=== PATIENT | female | born 1940 | race Caucasian/White ===

== ENCOUNTER → 2017-10-11 10:49 | Outpatient (CLI) | payer MEDICARE, SELFPAY ==
[2017-10-11 12:39] LABS: Absolute Lymphocyte Count 3.65 X10^3/ul (0.83-4.51); Absolute Neutrophil Count 7.2 X10^3/uL (2.0-7.7); Basophil# 0.06 X10^3/uL; Basophil% 0.5 % (0-1); Eosinophil# 0.57 X10^3/uL; Eosinophils% 4.6 % (0-5); Hematocrit 40.1 % (37-47); Hemoglobin 12.8 g/dl (12.0-15.0); Lymphocyte # 3.65 X10^3/ul (4.0); Lymphocyte % 29.2 % (19-41); Mean Corp Hgb Conc 31.9 g/gl (32-36); Mean Corpuscular Hgb 29.1 pg (27.0-32.0); Mean Corpuscular Volume 91.1 fL (81-99); Mean Platelet Vol. 10.7 fl (6.2-12.0); Monocyte# 0.93 X10^3/uL; Monocyte% 7.5 % (0-10); Neutrophil % 57.6 % (47-70); Platelet Count 332 K/mm3 (150-450); RBC Distribution Width CV 15.3 % (11.6-14.6); RBC Distribution Width SD 49.9 fl (35.1-43.9); White Blood Count 12.5 K/mm3 (4.4-11.0)
[2017-10-11 12:40] LABS: POSITIVE COUNT NO; POSITIVE DIFFERENTIAL NO; POSITIVE MORPHOLOGY NO
[2017-10-11 12:58] LABS: Anion Gap 8 (5-15); BUN 29 mg/dL (7-18); Calcium,Total 9.6 mg/dL (8.5-10.1); Chloride 104 mmol/L (98-107); Creatinine, Serum 2.23 mg/dL (0.55-1.02); EST Glomerular Filtration Rate 23 mL/min (>60); Est Glom Filt Rate - Afr Amer 27 mL/min (>60); Glucose 98 mg/dL (74-106); Potassium 4.9 mmol/L (3.5-5.1); Sodium Level 139 mmol/L (136-145)
[2017-10-11 13:01] LABS: Vitamin D,25 Hydroxy 25.6 ng/mL (19.95-100.01)
== END ==
PROVIDERS: Family Provider Family Medicine; PCP Family Medicine; Visit Provider Family Medicine
DX: I12.9 Hypertensive chronic kidney disease with stage 1 through stage 4 chronic kidney disease, or unspecified chronic kidney disease (principal); N18.9 Chronic kidney disease, unspecified; E55.9 Vitamin D deficiency, unspecified
CPT/HCPCS: 36415; 80048; 82306; 85025

== ENCOUNTER → 2018-02-23 09:53 | Outpatient (CLI) | payer MEDICARE, SELFPAY ==
[2018-02-23 12:18] LABS: Absolute Lymphocyte Count 4.41 X10^3/ul (0.83-4.51); Basophil# 0.05 X10^3/uL; Basophil% 0.4 % (0-1); Hematocrit 39.9 % (37-47); Hemoglobin 12.7 g/dl (12.0-15.0); Lymphocyte # 4.41 X10^3/ul (4.0); Lymphocyte % 31.2 % (19-41); Mean Corp Hgb Conc 31.8 g/gl (32-36); Mean Corpuscular Hgb 28.9 pg (27.0-32.0); Mean Corpuscular Volume 90.9 fL (81-99); Mean Platelet Vol. 11.1 fl (6.2-12.0); Monocyte# 0.91 X10^3/uL; Monocyte% 6.4 % (0-10); Neutrophil # 7.98 X10^3/uL (2.7-7.7); Neutrophil % 56.5 % (47-70); Platelet Count 368 K/mm3 (150-450); RBC Distribution Width CV 15.2 % (11.6-14.6); RBC Distribution Width SD 49.8 fl (35.1-43.9); Red Blood Count 4.39 M/mm3 (4.2-5.4); White Blood Count 14.1 K/mm3 (4.4-11.0)
[2018-02-23 12:24] LABS: POSITIVE COUNT NO; POSITIVE DIFFERENTIAL NO; POSITIVE MORPHOLOGY NO
[2018-02-23 12:29] LABS: ALB/GLOB Ratio 0.9 RATIO (0.9-2.4); AST(SGOT) 12 U/L (15-37); Alanine Aminotransfer ALT/SGPT 17 U/L (13-56); Albumin, Serum 3.5 g/dL (3.2-5.0); Alkaline Phosphatase 92 U/L (45-117); Anion Gap 10 (5-15); BUN 32 mg/dL (7-18); BUN/Creat Ratio 12.4 RATIO (10-20); Calcium,Total 9.2 mg/dL (8.5-10.1); Chloride 104 mmol/L (98-107); Cholesterol 290 mg/dL (200); Creatinine, Serum 2.59 mg/dL (0.55-1.02); EST Glomerular Filtration Rate 19 mL/min (>60); Est Glom Filt Rate - Afr Amer 23 mL/min (>60); Glucose 100 mg/dL (74-106); High Density Lipoprotein 40 mg/dL; Potassium 4.4 mmol/L (3.5-5.1); Protein, Total 7.5 g/dL (6.4-8.2); Sodium Level 140 mmol/L (136-145); Triglycerides 230 mg/dL; Uric Acid 7.8 mg/dL (2.6-6.0); Very Low Density Lipoprotein 46 mg/dL (5-40)
[2018-02-23 12:39] LABS: Vitamin D,25 Hydroxy 24.6 ng/mL (29.95-100.01)
== END ==
PROVIDERS: Family Provider Family Medicine; PCP Family Medicine; Visit Provider Family Medicine
DX: E55.9 Vitamin D deficiency, unspecified (principal); I12.9 Hypertensive chronic kidney disease with stage 1 through stage 4 chronic kidney disease, or unspecified chronic kidney disease; N18.9 Chronic kidney disease, unspecified
CPT/HCPCS: 36415; 80053; 80061; 82306; 84550; 85025

== ENCOUNTER → 2018-04-25 10:03 | Outpatient (CLI) | payer MEDICARE, SELFPAY ==
[2018-04-25 13:12] LABS: Vitamin D,25 Hydroxy 47.4 ng/mL (29.95-100.01)
[2018-04-25 13:20] LABS: ALB/GLOB Ratio 0.9 RATIO (0.9-2.4); AST(SGOT) 11 U/L (15-37); Alanine Aminotransfer ALT/SGPT 19 U/L (13-56); Albumin, Serum 3.6 g/dL (3.2-5.0); Alkaline Phosphatase 93 U/L (45-117); Anion Gap 9 (5-15); BUN 24 mg/dL (7-18); BUN/Creat Ratio 10.3 RATIO (10-20); Calcium,Total 9.8 mg/dL (8.5-10.1); Chloride 102 mmol/L (98-107); Creatinine, Serum 2.32 mg/dL (0.55-1.02); EST Glomerular Filtration Rate 22 mL/min (>60); Est Glom Filt Rate - Afr Amer 26 mL/min (>60); Globulin 4.1 g/dL (2.2-4.2); Glucose 99 mg/dL (74-106); Potassium 4.4 mmol/L (3.5-5.1); Protein, Total 7.7 g/dL (6.4-8.2); Sodium Level 138 mmol/L (136-145); T4 Free Direct 0.93 ng/dL (0.76-1.46); Thyroid Stim Hormone (TSH) 8.99 uIU/mL (0.358-3.74); Uric Acid 4.7 mg/dL (2.6-6.0)
[2018-04-25 13:31] LABS: Absolute Lymphocyte Count 2.44 X10^3/ul (0.83-4.51); Absolute Neutrophil Count 8.2 X10^3/uL (2.0-7.7); Basophil# 0.06 X10^3/uL; Basophil% 0.5 % (0-1); Eosinophil# 0.34 X10^3/uL; Eosinophils% 2.9 % (0-5); Hematocrit 42.2 % (37-47); Hemoglobin 12.7 g/dl (12.0-15.0); Lymphocyte # 2.44 X10^3/ul (4.0); Lymphocyte % 20.7 % (19-41); Mean Corp Hgb Conc 30.1 g/gl (32-36); Mean Corpuscular Hgb 27.9 pg (27.0-32.0); Mean Corpuscular Volume 92.7 fL (81-99); Mean Platelet Vol. 11.4 fl (6.2-12.0); Monocyte# 0.71 X10^3/uL; Neutrophil # 8.17 X10^3/uL (2.7-7.7); Neutrophil % 69.6 % (47-70); Platelet Count 362 K/mm3 (150-450); RBC Distribution Width CV 15.6 % (11.6-14.6); RBC Distribution Width SD 51.9 fl (35.1-43.9); Red Blood Count 4.55 M/mm3 (4.2-5.4); White Blood Count 11.8 K/mm3 (4.4-11.0)
[2018-04-25 13:39] LABS: POSITIVE COUNT NO; POSITIVE DIFFERENTIAL NO; POSITIVE MORPHOLOGY NO
== END ==
PROVIDERS: Family Provider Family Medicine; PCP Family Medicine; Visit Provider Family Medicine
DX: N18.9 Chronic kidney disease, unspecified (principal); E55.9 Vitamin D deficiency, unspecified; M10.9 Gout, unspecified; E78.2 Mixed hyperlipidemia
CPT/HCPCS: 36415; 80053; 82306; 84439; 84443; 84550; 85025

== ENCOUNTER → 2018-08-28 14:10 | Outpatient (CLI) | payer MEDICARE, SELFPAY ==
[2018-08-28 14:23] LABS: Mucous, Urine 0 SEEN /hpf (<or=2+); Red Blood Cells-Urine 0 SEEN /hpf (0-5)
[2018-08-28 15:31] LABS: Color, Urine Yellow (Yellow); Glucose, Dipstick Normal (Normal); Ketone-Dipstick Negative (Negative); Leukocyte Esterase-Dipstick 25 /ul (Negative); Nitrite-Dipstick Negative (Negative); Occult Blood-Urine Negative /ul (Negative); Protein-Dipstick 500 mg/dl (Negative); Specific Gravity, Urine 1.015 (1.002-1.030); Urine Bilirubin Dipstick Negative (Negative); Urine Clarity Clear (Clear); Urine Urobilinogen Normal (Normal)
[2018-08-28 15:33] LABS: Hematocrit 40.5 % (37-47); Hemoglobin 12.5 g/dl (12.0-15.0); Mean Corp Hgb Conc 30.9 g/gl (32-36); Mean Corpuscular Hgb 28.7 pg (27.0-32.0); Mean Corpuscular Volume 93.1 fL (81-99); Mean Platelet Vol. 11.8 fl (6.2-12.0); Platelet Count 355 K/mm3 (150-450); RBC Distribution Width CV 15.3 % (11.6-14.6); Red Blood Count 4.35 M/mm3 (4.2-5.4); White Blood Count 11.5 K/mm3 (4.4-11.0)
[2018-08-28 15:44] LABS: Scan Indicated on CBC? Y/N NO
[2018-08-28 16:18] LABS: Bacteria 1+ /hpf (None Seen); Squamous Epithelial Cells - UA 5-10 SEEN /hpf (5-10); White Blood Cells 0-5 SEEN /hpf (0-5)
[2018-08-28 16:19] LABS: Albumin, Serum 3.8 g/dL (3.2-5.0); BUN 24 mg/dL (7-18); Calcium,Total 9.7 mg/dL (8.5-10.1); Chloride 103 mmol/L (98-107); Creatinine, Serum 2.18 mg/dL (0.55-1.02); EST Glomerular Filtration Rate 23 mL/min (>60); Est Glom Filt Rate - Afr Amer 28 mL/min (>60); Glucose 94 mg/dL (74-106); Phosphorus 2.7 mg/dL (2.5-4.9); Sodium Level 138 mmol/L (136-145)
[2018-08-28 16:28] LABS: PTHIN 80.2 pg/mL (18.4-80.1); Vitamin D,25 Hydroxy 58.6 ng/mL (29.95-100.01)
[2018-08-28 16:29] LABS: Microalbumin:Creatinine Ratio 1239.8 mg/g CRE (<30 mg/g CRE); Protein, Urine (Random) 224.8 mg/dL (<11.9); Protein:Creat Ratio 1315 mg/g CRE (0-200)
== END ==
PROVIDERS: Family Provider Family Medicine; PCP Family Medicine; Visit Provider Internal Medicine Nephrology
DX: N18.4 Chronic kidney disease, stage 4 (severe) (principal); E55.9 Vitamin D deficiency, unspecified
CPT/HCPCS: 36415; 80069; 81001; 82043; 82306; 82570; 83970; 84156; 85027

== ENCOUNTER → 2019-07-23 10:22 | Outpatient (CLI) | payer MEDICARE, SELFPAY ==
[2019-07-23 12:21] LABS: Absolute Lymphocyte Count 2.88 X10^3/uL (0.83-4.51); Absolute Neutrophil Count 10.8 X10^3/uL (2.0-7.7); Basophil# 0.05 X10^3/uL; Basophil% 0.3 % (0-1); Eosinophil# 0.39 X10^3/uL; Eosinophils% 2.5 % (0-5); Hematocrit 38.3 % (37-47); Hemoglobin 11.7 g/dL (12.0-15.0); Lymphocyte # 2.88 X10^3/ul (4.0); Lymphocyte % 18.5 % (19-41); Mean Corp Hgb Conc 30.5 g/dL (32-36); Mean Corpuscular Hgb 29.3 pg (27.0-32.0); Mean Corpuscular Volume 95.8 fL (81-99); NRBC Flagged by Analyzer 0 % (0-5); Neutrophil # 10.76 X10^3/uL (2.7-7.7); Platelet Count 318 K/mm3 (150-450); RBC Distribution Width CV 15.7 % (11.6-14.6); RBC Distribution Width SD 55.4 fl (35.1-43.9); White Blood Count 15.6 K/mm3 (4.4-11.0)
[2019-07-23 13:08] LABS: ALB/GLOB Ratio 0.9 RATIO (0.9-2.4); AST(SGOT) 9 U/L (15-37); Alanine Aminotransfer ALT/SGPT 18 U/L (13-56); Albumin, Serum 3.3 g/dL (3.2-5.0); Alkaline Phosphatase 90 U/L (45-117); Anion Gap 8 (5-15); BUN 33 mg/dL (7-18); BUN/Creat Ratio 13.6 RATIO (10-20); Calcium,Total 9.9 mg/dL (8.5-10.1); Chloride 104 mmol/L (98-107); Creatinine, Serum 2.43 mg/dL (0.55-1.02); EST Glomerular Filtration Rate 20 mL/min (>60); Est Glom Filt Rate - Afr Amer 25 mL/min (>60); Globulin 3.8 g/dL (2.2-4.2); Glucose 99 mg/dL (74-106); Potassium 4.1 mmol/L (3.5-5.1); Protein, Total 7.1 g/dL (6.4-8.2); Sodium Level 138 mmol/L (136-145); T4 Free Direct 1.07 ng/dL (0.76-1.46); Thyroid Stim Hormone (TSH) 6.19 uIU/mL (0.358-3.74); Uric Acid 5.4 mg/dL (2.6-6.0)
[2019-07-23 13:14] LABS: Microalbumin:Creatinine Ratio 1446.9 mg/g CRE (<30 mg/g CRE)
[2019-07-23 14:49] LABS: Vitamin D,25 Hydroxy 75.2 ng/mL (29.95-100.01)
== END ==
PROVIDERS: Family Provider Family Medicine; PCP Family Medicine; Visit Provider Family Medicine
DX: I10 Essential (primary) hypertension (principal); E03.9 Hypothyroidism, unspecified; E55.9 Vitamin D deficiency, unspecified; M10.9 Gout, unspecified; D72.829 Elevated white blood cell count, unspecified
CPT/HCPCS: 36415; 80053; 82043; 82306; 82570; 84439; 84443; 84550; 85025

== ENCOUNTER → 2019-08-01 11:40 | Outpatient (CLI) | payer MEDICARE, SELFPAY ==
[2019-08-01 16:00] LABS: Anion Gap 7 (5-15); BUN 19 mg/dL (7-18); BUN/Creat Ratio 8.3 RATIO (10-20); Calcium,Total 9.7 mg/dL (8.5-10.1); Chloride 102 mmol/L (98-107); Creatinine, Serum 2.29 mg/dL (0.55-1.02); EST Glomerular Filtration Rate 22 mL/min (>60); Est Glom Filt Rate - Afr Amer 26 mL/min (>60); Glucose 100 mg/dL (74-106); Potassium 4.2 mmol/L (3.5-5.1); Sodium Level 137 mmol/L (136-145)
== END ==
LOC: LAB.FUTURE 11:41 → BFHLAB 08-02 14:02
PROVIDERS: Family Provider Family Medicine; PCP Family Medicine; Visit Provider Family Medicine
DX: I10 Essential (primary) hypertension (principal)
CPT/HCPCS: 36415; 80048

== ENCOUNTER → 2020-02-28 08:55 | Outpatient (CLI) | payer MEDICARE, SELFPAY ==
[2020-02-28 12:59] LABS: Absolute Lymphocyte Count 3.65 X10^3/uL (0.83-4.51); Absolute Neutrophil Count 8.6 X10^3/uL (2.0-7.7); Basophil# 0.08 X10^3/uL; Basophil% 0.6 % (0-1); Eosinophil# 0.69 X10^3/uL; Eosinophils% 4.9 % (0-5); Hematocrit 39.6 % (37-47); Lymphocyte # 3.65 X10^3/ul (4.0); Lymphocyte % 25.8 % (19-41); Mean Corp Hgb Conc 30.3 g/dL (32-36); Mean Corpuscular Hgb 28.9 pg (27.0-32.0); Mean Corpuscular Volume 95.4 fL (81-99); Mean Platelet Vol. 11.6 fl (6.2-12.0); Monocyte# 1.01 X10^3/uL; Monocyte% 7.1 % (0-10); NRBC Flagged by Analyzer 0 % (0-5); Neutrophil # 8.62 X10^3/uL (2.7-7.7); Platelet Count 385 K/mm3 (150-450); RBC Distribution Width CV 14.6 % (11.6-14.6); RBC Distribution Width SD 51.2 fl (35.1-43.9); Red Blood Count 4.15 M/mm3 (4.2-5.4); White Blood Count 14.1 K/mm3 (4.4-11.0)
[2020-02-28 13:03] LABS: Vitamin D,25 Hydroxy 64.7 ng/mL
[2020-02-28 13:04] LABS: ALB/GLOB Ratio 0.9 RATIO (0.9-2.4); AST(SGOT) 10 U/L (15-37); Alanine Aminotransfer ALT/SGPT 19 U/L (13-56); Albumin, Serum 3.5 g/dL (3.2-5.0); Alkaline Phosphatase 94 U/L (45-117); Anion Gap 6 (5-15); BUN 25 mg/dL (7-18); BUN/Creat Ratio 10.5 RATIO (10-20); Calcium,Total 9.8 mg/dL (8.5-10.1); Chloride 106 mmol/L (98-107); Creatinine, Serum 2.37 mg/dL (0.55-1.02); EST Glomerular Filtration Rate 21 mL/min (>60); Est Glom Filt Rate - Afr Amer 25 mL/min (>60); Globulin 3.8 g/dL (2.2-4.2); Glucose 95 mg/dL (74-106); Potassium 4.5 mmol/L (3.5-5.1); Protein, Total 7.3 g/dL (6.4-8.2); Sodium Level 140 mmol/L (136-145); Thyroid Stim Hormone (TSH) 6.15 uIU/mL (0.358-3.74)
== END ==
PROVIDERS: Family Provider Family Medicine; PCP Family Medicine; Visit Provider Family Medicine
DX: I12.9 Hypertensive chronic kidney disease with stage 1 through stage 4 chronic kidney disease, or unspecified chronic kidney disease (principal); N18.9 Chronic kidney disease, unspecified; E78.2 Mixed hyperlipidemia; E03.9 Hypothyroidism, unspecified; E55.9 Vitamin D deficiency, unspecified
CPT/HCPCS: 36415; 80053; 82306; 84443; 85025

== ENCOUNTER → 2020-05-14 13:36 | Outpatient (CLI) | payer MEDICARE, SELFPAY | PROVIDERS: PCP Family Medicine; Visit Provider Family Medicine | DX: R30.0 Dysuria (principal) | CPT/HCPCS: 87086; 87088 ==

== ENCOUNTER → 2020-05-29 10:57 | Outpatient (CLI) | payer MEDICARE, SELFPAY ==
[2020-05-29 12:15] LABS: Absolute Lymphocyte Count 2.69 X10^3/uL (0.83-4.51); Absolute Neutrophil Count 8.8 X10^3/uL (2.0-7.7); Basophil# 0.09 X10^3/uL; Basophil% 0.7 % (0-1); Eosinophil# 0.37 X10^3/uL; Eosinophils% 2.8 % (0-5); Hematocrit 40.2 % (37-47); Lymphocyte # 2.69 X10^3/ul (4.0); Lymphocyte % 20.4 % (19-41); Mean Corp Hgb Conc 29.9 g/dL (32-36); Mean Corpuscular Volume 93.9 fL (81-99); Mean Platelet Vol. 11.4 fl (6.2-12.0); Monocyte# 1.14 X10^3/uL; Monocyte% 8.7 % (0-10); NRBC Flagged by Analyzer 0 % (0-5); Neutrophil # 8.77 X10^3/uL (2.7-7.7); Neutrophil % 66.6 % (47-70); Platelet Count 362 K/mm3 (150-450); RBC Distribution Width CV 15.2 % (11.6-14.6); RBC Distribution Width SD 52.5 fl (35.1-43.9); Red Blood Count 4.28 M/mm3 (4.2-5.4); White Blood Count 13.2 K/mm3 (4.4-11.0)
[2020-05-29 13:04] LABS: ALB/GLOB Ratio 0.9 RATIO (0.9-2.4); AST(SGOT) 10 U/L (15-37); Alanine Aminotransfer ALT/SGPT 14 U/L (13-56); Albumin, Serum 3.5 g/dL (3.2-5.0); Alkaline Phosphatase 95 U/L (45-117); Anion Gap 6 (5-15); BUN 30 mg/dL (7-18); BUN/Creat Ratio 12.3 RATIO (10-20); Calcium,Total 9.6 mg/dL (8.5-10.1); Chloride 103 mmol/L (98-107); Creatinine, Serum 2.43 mg/dL (0.55-1.02); EST Glomerular Filtration Rate 20 mL/min (>60); Est Glom Filt Rate - Afr Amer 25 mL/min (>60); Globulin 3.9 g/dL (2.2-4.2); Glucose 91 mg/dL (74-106); Potassium 4.3 mmol/L (3.5-5.1); Protein, Total 7.4 g/dL (6.4-8.2); Sodium Level 136 mmol/L (136-145)
== END ==
PROVIDERS: PCP Family Medicine; Visit Provider Family Medicine
DX: N18.4 Chronic kidney disease, stage 4 (severe) (principal); E87.5 Hyperkalemia; E03.9 Hypothyroidism, unspecified
CPT/HCPCS: 36415; 80053; 84443; 85025

== ENCOUNTER → 2020-08-28 14:25 | Outpatient (CLI) | payer MEDICARE, SELFPAY ==
[2020-08-28 17:48] LABS: Absolute Lymphocyte Count 3.56 X10^3/uL (0.83-4.51); Absolute Neutrophil Count 8.4 X10^3/uL (2.0-7.7); Basophil% 0.7 % (0-1); Eosinophil# 0.45 X10^3/uL; Eosinophils% 3.3 % (0-5); Hematocrit 39.4 % (37-47); Hemoglobin 11.9 g/dL (12.0-15.0); Lymphocyte # 3.56 X10^3/ul (4.0); Lymphocyte % 26.4 % (19-41); Mean Corp Hgb Conc 30.2 g/dL (32-36); Mean Corpuscular Hgb 28.6 pg (27.0-32.0); Mean Corpuscular Volume 94.7 fL (81-99); Mean Platelet Vol. 11.7 fl (6.2-12.0); Monocyte# 0.94 X10^3/uL; NRBC Flagged by Analyzer 0 % (0-5); Neutrophil # 8.39 X10^3/uL (2.7-7.7); Neutrophil % 62.1 % (47-70); Platelet Count 375 K/mm3 (150-450); RBC Distribution Width CV 15.2 % (11.6-14.6); RBC Distribution Width SD 52.9 fl (35.1-43.9); Red Blood Count 4.16 M/mm3 (4.2-5.4); White Blood Count 13.5 K/mm3 (4.4-11.0)
[2020-08-28 18:08] LABS: Anion Gap 4 (5-15); BUN 27 mg/dL (7-18); BUN/Creat Ratio 11.1 RATIO (10-20); Calcium,Total 9.9 mg/dL (8.5-10.1); Chloride 106 mmol/L (98-107); Creatinine, Serum 2.43 mg/dL (0.55-1.02); EST Glomerular Filtration Rate 20 mL/min (>60); Est Glom Filt Rate - Afr Amer 25 mL/min (>60); Glucose 99 mg/dL (74-106); Potassium 4.3 mmol/L (3.5-5.1); Sodium Level 138 mmol/L (136-145); Thyroid Stim Hormone (TSH) 4.28 uIU/mL (0.358-3.74)
== END ==
PROVIDERS: PCP Family Medicine; Visit Provider Family Medicine
DX: I12.9 Hypertensive chronic kidney disease with stage 1 through stage 4 chronic kidney disease, or unspecified chronic kidney disease (principal); N18.4 Chronic kidney disease, stage 4 (severe); E03.9 Hypothyroidism, unspecified
CPT/HCPCS: 36415; 80048; 84443; 85025

== ENCOUNTER → 2022-12-20 | Outpatient (CLI) | payer MEDICARE, SELFPAY ==
[2022-12-20 12:34] LABS: Absolute Lymphocyte Count 4.79 X10^3/uL (0.83-4.51); Absolute Neutrophil Count 7.8 X10^3/uL (2.0-7.7); Basophil# 0.13 X10^3/uL; Basophil% 0.9 % (0-1); Eosinophil# 0.86 X10^3/uL; Eosinophils% 5.8 % (0-5); Hematocrit 37.1 % (37-47); Hemoglobin 11.1 g/dL (12.0-15.0); Lymphocyte # 4.79 X10^3/ul (0.83-4.51); Lymphocyte % 32.5 % (19-41); Mean Corp Hgb Conc 29.9 g/dL (32-36); Mean Corpuscular Hgb 28.5 pg (27.0-32.0); Mean Corpuscular Volume 95.4 fL (81-99); Mean Platelet Vol. 11.7 fl (6.2-12.0); Monocyte# 1.04 X10^3/uL; Monocyte% 7.1 % (0-10); NRBC Flagged by Analyzer 0 % (0-5); Neutrophil # 7.82 X10^3/uL (2.7-7.7); Neutrophil % 53.2 % (47-70); Platelet Count 413 K/mm3 (150-450); RBC Distribution Width CV 15.4 % (11.6-14.6); RBC Distribution Width SD 53.2 fl (35.1-43.9); Red Blood Count 3.89 M/mm3 (4.2-5.4); White Blood Count 14.7 K/mm3 (4.4-11.0)
[2022-12-20 12:56] LABS: Vitamin D,25 Hydroxy 46.1 ng/mL
[2022-12-20 13:41] LABS: AST(SGOT) 10 U/L (15-37); Alanine Aminotransfer ALT/SGPT 13 U/L (13-56); Albumin, Serum 3.5 g/dL (3.2-5.0); Alkaline Phosphatase 94 U/L (45-117); Anion Gap 6 (5-15); BUN 38 mg/dL (7-18); BUN/Creat Ratio 12.2 RATIO (10-20); Chloride 108 mmol/L (98-107); Cholesterol 205 mg/dL (200); Creatinine, Serum 3.12 mg/dL (0.55-1.02); EST Glomerular Filtration Rate 15 mL/min (>60); Est Glom Filt Rate - Afr Amer 18 mL/min (>60); Globulin 3.4 g/dL (2.2-4.2); Glucose 95 mg/dL (74-106); High Density Lipoprotein 46 mg/dL; Potassium 4.9 mmol/L (3.5-5.1); Protein, Total 6.9 g/dL (6.4-8.2); Sodium Level 140 mmol/L (136-145); Triglycerides 149 mg/dL; Very Low Density Lipoprotein 30 mg/dL (5-40)
== END | disposition home or self-care (01) ==
LOC: BFHLAB 10:32
PROVIDERS: PCP Nurse Practitioner Family; Referring Provider Nurse Practitioner Family; Visit Provider Nurse Practitioner Family
DX: Z00.00 Encounter for general adult medical examination without abnormal findings (principal); N18.4 Chronic kidney disease, stage 4 (severe); I12.9 Hypertensive chronic kidney disease with stage 1 through stage 4 chronic kidney disease, or unspecified chronic kidney disease; R73.01 Impaired fasting glucose; E55.9 Vitamin D deficiency, unspecified; E78.2 Mixed hyperlipidemia
CPT/HCPCS: 36415; 80053; 80061; 82306; 85025

== ENCOUNTER 2023-05-24 08:57 | Inpatient (IN) | payer MEDICARE, SELFPAY ==
[2023-05-24] VITALS (28 sets, daily range): BP systolic 113–207; BP diastolic 58–113; PULSE 65–124; RESP 12–43; TEMP 25.3–36.9; O2SAT 3–100; BMI 27.8; BMI 24.4
--- NOTE | 2023-05-24 09:09 | RAD_ITS ---
STUDY: X-RAY CHEST REASON FOR EXAM: Female, 83 years old. Sob TECHNIQUE: Single AP portable view of the chest. COMPARISON: None. FINDINGS: EKG electrodes are seen. There is evidence of vascular congestion and mild degree of CHF. Blunting of the right costo phrenic angle with right basilar atelectasis. There is mild cardiac enlargement. Normal mediastinum and zac. Normal visualized pulmonary arteries. There is atherosclerotic calcification of the aortic arch with tortuosity. There are degenerative changes of the visualized thoracic spine. Calcific tendinitis of the right shoulder joint. There is no demonstrated abnormality of the visualized soft tissue structures of the upper abdomen. RAD/Chest 1 View (Portable) IMPRESSION: CHF with blunting of the right costophrenic angle and right basilar atelectasis. Mild or megaly. Electronically Signed: Demarcus Jackson MD at 10:01 EDT ,
--- NOTE | 2023-05-24 09:10 | EKG12_ITS ---
Test Reason : SOB Blood Pressure : / mmHG Vent. Rate : 099 BPM Atrial Rate : 099 BPM P-R Int : 170 ms QRS Dur : 070 ms QT Int : 344 ms P-R-T Axes : 073 011 102 degrees QTc Int : 441 ms Normal sinus rhythm Septal infarct , age undetermined ST & T wave abnormality, consider lateral ischemia Abnormal ECG Confirmed by ROBB GUERRERO, SHAHNAZ ([id number]), newspaper editor managing CINTIA AUSTIN ([id number]) on 05/30/2023 7:03:17 AM Referred By: Confirmed By:SHAHNAZ ZAMUDIO MD
--- NOTE | 2023-05-24 09:14 | EDS_ITS ---
HPI History of Present Illness Chief Complaint: Shortness of Breath Informant: patient Onset/Context/Timing Onset: Days Context: Gradual Onset Narrative Narrative: Patient presents with several days of congestion and sinus drainage. She has had shortness of breath in the morning but states today seem to be the worst. EMS noted her O2 sat was 89% on room air on arrival. Patient reports some mild lower chest pressure. No fever or chills. Very minimal if any cough. [facility] Medical History (Updated 05/24/23 @ 10:[address] Maryann Wilkins MD) Gout Heart murmur HTN (hypertension) Kidney failure Home Medications allopurinol 100 mg tablet mg 05/24/23 [History Last Taken Unknown] diltiazem HCl 240 mg capsule,extended release 24 hr (Cartia XT) mg PO 05/24/23 [History Last Taken Unknown] hydralazine 25 mg tablet mg 05/24/23 [History Last Taken Unknown] Allergy/AdvReac Type Severity Reaction Status Date / Time prednisone Allergy Mild Hives Verified 05/24/23 12:44 morphine AdvReac Mild Vomiting Verified 05/24/23 09:02 Social History Smoking Status: Never smoker ROS ROS ED Constitutional Constitutional ED: Denies chills or fever(s) Eyes Eyes: Denies change in vision or discharge from eye(s) ENT ENT ED: Reports other Details: Sinus congestion and drainage ; Denies discharge from eye(s), rhinorrhea or sore throat Cardiovascular Cardiovascular: Denies chest pain or palpitations Respiratory/Chest Respiratory/Chest: Reports dyspnea; Denies cough Gastrointestinal Gastrointestinal: Denies abdominal pain, diarrhea, nausea or vomiting Genitourinary Genitourinary ED: Denies dysuria Musculoskeletal Musculoskeletal: Denies back pain or extremity pain Integumentary Denies Abrasions or rash Neurologic Neurologic: Denies headache(s) or weakness Psychiatric Psychiatric: Denies anxiety or depression Allergic/Immunologic Allergic/Immunologic ED: Denies lip swelling or urticaria EXAM Physical Exam Const Vital Signs: 05/24/23 08:58 05/24/23 09:01 05/24/23 09:06 Temperature 77.5 F L 97.5 F L Temperature Source Temporal Temporal Pulse Rate 86 115 H Respiratory Rate 26 H 26 H Respiratory Effort Short of Breath Respiratory Depth Deep Respiratory Pattern Tachypnea Blood Pressure 126/108 H 126/108 H Blood Pressure Mean 114 114 Pulse Ox 90 93 Oxygen Delivery Method Room Air Nasal Cannula Nasal Cannula Oxygen Flow Rate (L/min) 3 3 Positive well nourished and well developed General Appearance ED: well developed HEENT Reports normocephalic and head/scalp atraumatic Eyes PERRL and EOMs intact bilaterally Neck supple Chest Wall inspection of chest normal and palpation of chest normal Resp normal respiratory effort and clear to auscultation bilaterally Cardio regular rate and regular rhythm GI non-tender Auscultation: hypoactive bowel sounds Palpation: soft Extremity Extremity Narrative: 2+ bilateral lower extremity edema, symmetric. Neuro oriented x3 and no sensory deficits noted Sensorium / Orientation: alert Motor Exam: strength 5/5 throughout Psych mental status grossly normal Skin no rashes or lesions noted MDM MDM MDM Narrative Medical decision making narrative: Patient placed on lunchroom monitor. Labwork obtained to evaluate for leukocytosis, anemia, and electrolyte derangement. Chest x-ray obtained to evaluate for acute lung pathology, cardiac size, or mediastinal abnormality. Swab for COVID and influenza obtained. History & Record Review Discussion w/independent historian: Patient and Family Additional record(s) reviewed:: Prior labs Lab Data Attestation: I reviewed the patient's lab results. Labs: Laboratory Results - last 24 hr 05/24/23 09:30 WBC 17.3 H RBC 3.92 L Hgb 11.1 L Hct 36.8 L MCV 93.9 MCH 28.3 MCHC 30.2 L RDW Std Deviation 54.2 H RDW Coeff of Art 15.7 H Plt Count 452 H MPV 10.5 Immature Gran % (Auto) 0.500 Neut % (Auto) 65.5 Lymph % (Auto) 23.4 [place] % (Auto) 4.9 Eos % (Auto) 5.0 Baso % (Auto) 0.7 Absolute Neuts (auto) 11.4 H Absolute Lymphs (auto) 4.04 Nucleated RBC % 0 D-Dimer Quant (PE/DVT) 0.59 H* Sodium 137 Potassium 4.2 Chloride 109 H Carbon Dioxide 24.0 Anion Gap 4 L BUN 43 H Creatinine 3.84 H Estim Creat Clear Calc 7.83 Est GFR (MDRD) Af Amer 14 L Est GFR (MDRD) Non-Af 12 L BUN/Creatinine Ratio 11.2 Glucose 140 H Calcium 10.0 Total Bilirubin 0.50 Direct Bilirubin 0.13 AST 6 L ALT 14 Alkaline Phosphatase 94 Troponin I High Sens 87 H B-Natriuretic Peptide 625.1 H Total Protein 6.8 Albumin 3.4 Globulin 3.4 Radiography Chest X-Ray - ED: 1 View, Read by ED Physician and CHF Diagnostic Testing: Clinical Impression(s) from Imaging Studies Chest X-Ray 05/24/23 09:09 IMPRESSION: CHF with blunting of the right costophrenic angle and right basilar atelectasis. Mild or megaly. Electronically Signed: Demarcus Jackson MD at 10:01 EDT , EKG Initial EKG: Attestation: I personally reviewed and interpreted this EKG as follows: Interpretation: Sinus Rhythm (Sinus at [address] depression. Prior study for comparison is from [address] depression.) Treatment and Re-Evaluation :: CBC was elevated white count at 17.3 with normal differential. Hemoglobin is 11.1. D-dimer is 0.59, but normal when age-adjusted. Chemistry studies significant for BUN of 43 and a creatinine of 3.84. She has a history of chronic renal failure and appears her baseline creatinine has been in the high 2 range, however most recent labs indicate a creatinine of 3.12. BNP is elevated at 625. Troponin is 87. Portable chest x-ray per my interpretation reveals evidence of CHF. Radiology interpretation is reviewed and agrees. Patient has been given 20 mg of IV Lasix. She did not take her normal home blood pressure medication and will be given her oral dose of diltiazem at this time as well. I will speak with hospitalist regarding admission. Patient is currently on 3 L nasal cannula to maintain O2 saturations. Prior to going to the floor is notified by nursing staff that the patient's respiratory rate was up in the 50s and her O2 sats were in the 70s and 80s. When I presented to bedside to evaluate her she was on 6 L nasal cannula holding the prongs in her mouth that she is a mouth breather. Her O2 sat was only 81%. I asked respiratory therapy to bring over the BiPAP knowing that her chest x-ray was consistent with congestive heart failure. In spite of her oral Cardizem, her blood pressure remains elevated with her systolic pressure around 200. 1 inch of Nitropaste is placed. Patient tolerates BiPAP well and O2 sat is at 100% respiratory rate down into the 30s. I spoke with Dr. Escobar who had seen the patient for admission. She had just spoken with Dr. Henriquez. They would like an additional 80 mg of IV Lasix given and patient started on a nitro drip. This is initiated prior to transport to the floor. I did speak with patient about her wishes and she does not want to be intubated. Discharge Plan Dx/Rx/DC Orders Clinical Impression: CHF exacerbation Disposition Disposition: Acute Care [facility] Discharge Date/Time: 05/24/23 12:22
[2023-05-24 09:37] LABS: Absolute Lymphocyte Count 4.04 X10^3/uL (0.83-4.51); Absolute Neutrophil Count 11.4 X10^3/uL (2.0-7.7); Basophil# 0.12 X10^3/uL; Basophil% 0.7 % (0-1); Eosinophil# 0.86 X10^3/uL; Hematocrit 36.8 % (37-47); Hemoglobin 11.1 g/dL (12.0-15.0); Lymphocyte # 4.04 X10^3/ul (0.83-4.51); Lymphocyte % 23.4 % (19-41); Mean Corp Hgb Conc 30.2 g/dL (32-36); Mean Corpuscular Hgb 28.3 pg (27.0-32.0); Mean Corpuscular Volume 93.9 fL (81-99); Mean Platelet Vol. 10.5 fl (6.2-12.0); Monocyte# 0.84 X10^3/uL; Monocyte% 4.9 % (0-10); NRBC Flagged by Analyzer 0 % (0-5); Neutrophil # 11.35 X10^3/uL (2.7-7.7); Neutrophil % 65.5 % (47-70); Platelet Count 452 K/mm3 (150-450); RBC Distribution Width CV 15.7 % (11.6-14.6); RBC Distribution Width SD 54.2 fl (35.1-43.9); Red Blood Count 3.92 M/mm3 (4.2-5.4); White Blood Count 17.3 K/mm3 (4.4-11.0)
[2023-05-24 09:54] LABS: D-Dimer Quantitative (DVT/PE) 0.59 FEU/ug/m (0.27-0.49)
[2023-05-24 09:57] LABS: AST(SGOT) 6 U/L (15-37); Alanine Aminotransfer ALT/SGPT 14 U/L (13-56); Albumin, Serum 3.4 g/dL (3.2-5.0); Alkaline Phosphatase 94 U/L (45-117); Anion Gap 4 (5-15); BUN 43 mg/dL (7-18); BUN/Creat Ratio 11.2 RATIO (10-20); Bilirubin, Direct 0.13 mg/dL (0.00-0.30); Chloride 109 mmol/L (98-107); Creatinine, Serum 3.84 mg/dL (0.55-1.02); EST Glomerular Filtration Rate 12 mL/min (>60); Est Glom Filt Rate - Afr Amer 14 mL/min (>60); Estimated Creatinine Clearance 7.83 ml/min; Globulin 3.4 g/dL (2.2-4.2); Glucose 140 mg/dL (74-106); Potassium 4.2 mmol/L (3.5-5.1); Protein, Total 6.8 g/dL (6.4-8.2); Sodium Level 137 mmol/L (136-145); Troponin-I HS 87 pg/mL (3.0-54.0)
[2023-05-24 10:05] LABS: BNP,B-Type NATRIURETIC PEPTIDE 625.1 pg/mL (0-100)
--- NOTE | 2023-05-24 10:38 | HP.PCM_ITS ---
HPI - General General Date of Admission: 05/24/23 Date of Service: 05/24/23 Chief Complaint: shortness of breath HPI Narrative FUNMI INGRAM, is a 83 with a PMH as outlined who presents via the ED on 05/24/2023 with a complaint of shortness of breath which had started on the day of admission. She had had some nasal congestion, but wasnt really short of breath until this morning when she got short of breath. She also complained of some chest pressure. She denied any dizziness, lightheadedness, palpitations, nausea, vomiting or any other symptoms. REview of systems is otherwise negative. She denies any recent history of long distance travel, any history of heart failure or PE. Vitals in [facility] ED were temp of 97.5F, [place] of 115, RR of 26 and BP of 126/108/ She was saturating at 93% on 3L of oxygen. CBC showed wbc of 17.3, Hb of 11.1, paradise telets of 452; D dimer was 0.59. Chemistry showed sodium of 137, potassium of 4.2 and Cr of 3.84. BNP was 625. COVID and influenza tests were negative and chest x-ray showed evidence of CHF with blunting of the right costophrenic angle and right basilar atelectasis with mild cardiomegaly. She is being admitted to be managed for hypoxia due to acute heart failure with unknown EF. [facility] Medical History (Updated 05/24/23 @ 10:[address] Maryann Wilkins MD) Gout Heart murmur HTN (hypertension) Kidney failure Home Medications allopurinol 100 mg tablet mg 05/24/23 [History Last Taken Unknown] diltiazem HCl 240 mg capsule,extended release 24 hr (Cartia XT) mg PO 05/24/23 [History Last Taken Unknown] hydralazine 25 mg tablet mg 05/24/23 [History Last Taken Unknown] Allergy/AdvReac Type Severity Reaction Status Date / Time prednisone Allergy Mild Hives Verified 05/24/23 12:44 morphine AdvReac Mild Vomiting Verified 05/24/23 09:02 Social History Smoking Status: Never smoker ROS Review of Systems ROS Unobtainable: Denies due to encephalopathy Constitutional Constitutional: Denies anorexia, chills, fatigue or fever(s) ENT HEENT: Denies dysphagia, headache(s) or nasal discharge Cardiovascular Cardiovascular: Reports chest pain and orthopnea; Denies edema, palpitations or paroxysmal nocturnal dyspnea Respiratory/Chest Respiratory/Chest: Reports cough, shortness of breath at rest and shortness of breath with exertion; Denies wheezing Gastrointestinal Gastrointestinal: Denies constipation, diarrhea, dyspepsia, hematochezia, melena, nausea or vomiting Neurologic Neurologic: Denies confusion, dizziness, focal weakness, headache(s), lack of coordination or numbness Psychiatric Psychiatric: Denies anxiety or depression Endocrine Endocrinology: Denies change in body appearance Vital Signs Vital Signs Vital Signs: 05/24/23 08:58 05/24/23 09:01 05/24/23 09:06 Temperature 77.5 F L 97.5 F L Temperature Source Temporal Temporal Pulse Rate 86 115 H Respiratory Rate 26 H 26 H Respiratory Effort Short of Breath Respiratory Depth Deep Respiratory Pattern Tachypnea Blood Pressure 126/108 H 126/108 H Blood Pressure Mean 114 114 Pulse Ox 90 93 Oxygen Delivery Method Room Air Nasal Cannula Nasal Cannula Oxygen Flow Rate (L/min) 3 3 Weight Weight: 142 lb 13.753 oz Body Mass Index (BMI) 27.8 Physical Exam Const alert, oriented x3 and no apparent distress Constitutional Narrative: frail General Appearance: cooperative HEENT normocephalic, moist oral mucous membranes and oropharynx normal Eyes PERRL and EOMs intact bilaterally Neck no lymphadenopathy and supple Lymph Lymphatic: no lymphadenopathy noted and no lymphedema noted Resp Resp Narrative: tachypneic, moderately diminished breath sounds bibasally, bilateral crackles. on 3L of oxygen at time of my review, but subsequently became very short of breath and needed BIPAP Cardio regular rate, regular rhythm, S1 normal heart sound, S2 normal heart sound and no murmurs GI normal to inspection, nondistended, normoactive bowel sounds, soft to palpation, non-tender and non-distended Extremity normal capillary refill, no clubbing, cyanosis or edema and no calf tenderness Skin General Skin Exam: no breakdown Neuro CN's II-XII intact bilaterally, no focal motor deficits, no sensory deficits noted and deep tendon reflexes 2+ bilaterally Motor Exam: strength 5/5 throughout and general weakness Psych thought process normal, cooperative and affect normal Appearance: appropriate Results Lab / Micro Data 05/24/23 09:30 05/24/23 09:30 Labs: Laboratory Results - last 24 hr 05/24/23 09:30: WBC 17.3 H, RBC 3.92 L, Hgb 11.1 L, Hct 36.8 L, MCV 93.9, MCH 28.3, MCHC 30.2 L, RDW Std Deviation 54.2 H, RDW Coeff of Art 15.7 H, Plt Count 452 H, MPV 10.5, Immature Gran % (Auto) 0.500, Neut % (Auto) 65.5, Lymph % (Auto) 23.4, [place] % (Auto) 4.9, Eos % (Auto) 5.0, Baso % (Auto) 0.7, Absolute Neuts (auto) 11.4 H, Absolute Lymphs (auto) 4.04, Nucleated RBC % 0, D-Dimer Quant (PE/DVT) 0.59 H*, Sodium 137, Potassium 4.2, Chloride 109 H, Carbon Dioxide 24.0, Anion Gap 4 L, BUN 43 H, Creatinine 3.84 H, Estim Creat Clear Calc 7.83, Est GFR (MDRD) Af Amer 14 L, Est GFR (MDRD) Non-Af 12 L, BUN/Creatinine Ratio 11.2, Glucose 140 H, Calcium 10.0, Total Bilirubin 0.50, Direct Bilirubin 0.13, AST 6 L, ALT 14, Alkaline Phosphatase 94, Troponin I High Sens 87 H, B- Natriuretic Peptide 625.1 H, Total Protein 6.8, Albumin 3.4, Globulin 3.4 Micro: Microbiology 05/24/23 09:30 Nasal Secretion SARS-CoV-2 & FLU Antigen (Rapid) - Final Radiology Impression Chest X-Ray 05/24/23 09:09 IMPRESSION: CHF with blunting of the right costophrenic angle and right basilar atelectasis. Mild or megaly. Electronically Signed: Demarcus Jackson MD at 10:01 EDT , Assessment & Plan Assessment/Plan (1) CHF exacerbation: PLAN: Plan #Acute heart failure of unknown EF * admit to PCU * Had had shortness of breath for several days but worsened on the day of presentation. She has no history of heart failure. She had a stat orthopnea and PND. * EKG showed ST depression in V4 V5 and V6. Chest x-ray showed evidence of heart failure. * BNP elevated at 625. * Initial troponin was only slightly elevated at 87 but trended up to a peak of 2017. * Cardiology consulted. Patient started on Cardizem drip as blood pressure became markedly elevated in the ED at over 200 systolic. * Was given a dose of IV Lasix 20 mg x 1 in the ED. Per cardiology will give another dose of 80 mg x 1 and start on Lasix drip. Also started on nitroglycerin drip * Started on heparin drip on account of non-STEMI. * 2D echo ordered monitor intake and output. Fluid restriction to 1500 cc daily * #Non-STEMI * Troponins peaked at 2017. 2D echo ordered. Currently on nitro drip. Will start on heparin drip also. * Give aspirin and high intensity statin. Cardiology consulted. * Check lipid profile and A1c * #Hypertensive emergency * Patient's blood pressure went up to the 200s systolic. Started on nitroglycerin drip. * Not been admitted in the ICU versus DNR CCA no intubation. * #CKD stage V. * Patient's creatinine is 3.84. Baseline is around 3.12 from December 2022. * Kidney function has gradually been worsening. * She is adamant she does not want dialysis. * She has never seen a sonography technologist and has been following up with her PCP. * Nephrology consulted. * Currently on Lasix drip which would likely adversely impact her creatinine. * #HYpertension; on cardizem. This is on hold as she is now on nitroglycerin drip. DVT prophylaxis; heparin drip CODE STATUS: DNR CCA no intubation * Patient and her son counseled extensively about different types of CODE STATUS including full code, DNR CCA and DNR CCA. Patient's wishes to be DNR CCA no intubation. Total [id number] time 18 minutes. Charges/Coding Visit Charges Inpatient E&M: 98169 Init Hosp L3 Procedures Hospitalists Procedures: 31035 Advncd Care Plan 30 Min
[2023-05-24] MEDS: dilTIAZem CD 240 MG Capsule PO (10:54)
[2023-05-24] MEDS: Furosemide 20 MG/2 ML VIAL IV (10:54)
[2023-05-24] MEDS: Nitroglycerin Oint 1 INCH PACKET TD (11:54)
[2023-05-24] MEDS: Furosemide 100 MG/10 ML Vial 80 MG IV (12:08)
[2023-05-24] MEDS: Nitroglycerin Infusion 250 ML 3 MG CONT INF (12:08)
--- NOTE | 2023-05-24 12:41 | ECHOD_ITS ---
Reason For Study: DYSPNEA/SOB Procedure This was a 2D Doppler, Color Flow transthoracic echocardiogram. Exam performed portable in patient room. Left Ventricle Normal LV size. Moderate segmental systolic dysfunction (see wall motion). The left ventricular ejection fraction is 40 %. Stage 1 diastolic dysfunction. Lateral [place] : Severely Hypokinetic. Mid- Anterior : Severely Hypokinetic. Right Ventricle Normal RV size. Normal systolic function. Atria Normal left atrium. Normal right atrium. Mitral Valve Normal mitral valve. Tricuspid Valve Normal tricuspid valve. Aortic Valve Normal aortic valve. Pulmonic Valve Normal pulmonic valve. Great Vessels Normal aortic root. The pulmonary artery is normal size. Normal inferior vena cava. Pericardium/Pleural No pericardial effusion. MMode/2D Measurements & Calculations LVIDd: 4.5 cm IVSd: 1.2 cm Ao root diam: 2.7 cm LVIDs: 3.1 cm LVPWd: 1.2 cm RVDd: 2.8 cm FS: 29.5 % LAV(MOD-bp): 52.4 ml LVAd ap4: 24.4 cm2 LVAd ap2: 25.7 cm2 LAV(MOD-bp) Indexed: 32.5 ml/m2 LVLd ap4: 6.9 cm LVLd ap2: 7.3 cm LAV(MOD-sp2): 50.8 ml EDV(MOD-sp4): 73.2 ml EDV(MOD-sp2): 74.8 ml LAV(MOD-sp4): 50.7 ml EDV(sp4-el): 73.6 ml EDV(sp2-el): 76.7 ml LVAs ap4: 14.9 cm2 LVAs ap2: 16.5 cm2 LVLs ap4: 6.0 cm LVLs ap2: 6.5 cm ESV(MOD-sp4): 31.2 ml ESV(MOD-sp2): 33.8 ml ESV(sp4-el): 31.7 ml ESV(sp2-el): 35.2 ml EF(MOD-sp4): 57.4 % EF(MOD-sp2): 54.7 % EF(sp4-el): 56.9 % SV(MOD-sp4): 42.1 ml SV(MOD-sp2): 40.9 ml SV(sp4-el): 41.8 ml LA dimension(2D): 3.5 cm LA A4 area: 17.1 cm2 RA A4 area: 12.0 cm2 TAPSE: 1.7 cm Time Measurements MV dec time: 0.17 sec Doppler Measurements & Calculations MV E max silvio: 98.6 cm/sec Lat Peak E' Silvio: 6.0 cm/sec Med Peak E' Silvio: 5.4 cm/sec MV A max silvio: 112.3 cm/sec E/E' lat: 16.6 E/E' med: 18.2 MV E/A: 0.88 MV V2 max: 127.8 cm/sec MV P1/2t max silvio: 114.8 cm/sec Ao V2 max: 199.7 cm/sec MV max P.5 mmHg MV P1/2t: 56.4 msec Ao max P.0 mmHg MV V2 mean: 82.7 cm/sec MV dec slope: 596.0 cm/sec2 Ao V2 mean: 146.6 cm/sec MV mean P.0 mmHg Ao mean P.5 mmHg MV V2 VTI: 26.5 cm MVA(P1/2t): 3.9 cm2 Ao V2 VTI: 36.9 cm AV (velocity ratio): 0.55 LV V1 max: 108.4 cm/sec PA V2 max: 143.0 cm/sec LV V1 max P.7 mmHg PA V2 mean: 91.9 cm/sec LV V1 mean P.8 mmHg LV V1 mean: 78.0 cm/sec LV V1 VTI: 20.5 cm ECHO/Echo Complete Interpretation Summary Normal LV size. Moderate segmental systolic dysfunction (see wall motion). The left ventricular ejection fraction is 40 %. Stage 1 diastolic dysfunction. The distal anterior wall and lateral apical wall are severely hypokinetic. Ordering Physician: Josephine Escobar Referring Physician: Jodi Felix Performed By: Lizeth Middleton, RAOUL, RVT
[2023-05-24 13:26] LABS: Troponin-I HS 416 pg/mL (3.0-54.0)
[2023-05-24] MEDS: Furosemide 500 MG in Empty Viaflex 50 mL 1 EACH CONT INF (13:46)
[2023-05-24 16:31] LABS: Troponin-I HS 2017 pg/mL (3.0-54.0)
--- NOTE | 2023-05-24 17:45 | PCM.CONS.C ---
Assessment & Plan Assessment/Plan (1) CHF exacerbation: PLAN: She presented with an exacerbation of congestive heart failure [place] [employer] class III. The above is likely secondary to severe hypertension though coronary disease cannot be completely excluded especially due to the fact that she does have segmental wall motion abnormalities noted on her echocardiogram which has an ejection fraction of approximately 40%. My recommendation will be to continue with intravenous Lasix overnight Intravenous nitroglycerin for blood pressure control We will institute beta-papa control (2) HTN (hypertension): PLAN: Her blood pressure was markedly elevated. Will recommend carvedilol 12.5 mg twice a day Amlodipine 10 mg a day (3) NSTEMI (non-ST elevation myocardial infarction): PLAN: She has a non-ST elevation myocardial infarction. She does have segmental wall motion abnormalities. Her renal function is compromised and at this time she does not want any invasive therapy. We will therefore continue to optimize her medical therapy. We will institute high intensity statin Baby aspirin Intravenous heparin for least 24 hours Above discussed with patient and her son HPI Consult Data Date of Consult: 05/24/23 HPI Narrative HPI Narrative: FUNMI INGRAM, is a 83 F who presents to the emergency room with complaints of shortness of breath over the last few days. She also had some nasal congestion prior to admission. She had complained of some chest pressure but denied any dizziness lightheadedness palpitations nausea vomiting. In the emergency room she was noted to be markedly hypertensive and had an elevated natruretic peptide level. She also has a history of renal dysfunction. Cardiology was called. It was decided to start her on a post dose of Lasix, BiPAP and intravenous nitroglycerin. She improved remarkably and is currently admitted to the telemetry care unit. She says that she is breathing much better. She does not want any invasive therapy like a heart catheterization. [facility] Medical History (Updated 05/24/23 @ 17:[address] Gideon Henriquez MD) Gout Heart murmur HTN (hypertension) Kidney failure Home Medications allopurinol 100 mg tablet mg 05/24/23 [History Last Taken Unknown] diltiazem HCl 240 mg capsule,extended release 24 hr (Cartia XT) mg PO 05/24/23 [History Last Taken Unknown] hydralazine 25 mg tablet mg 05/24/23 [History Last Taken Unknown] Allergy/AdvReac Type Severity Reaction Status Date / Time prednisone Allergy Mild Hives Verified 05/24/23 12:44 morphine AdvReac Mild Vomiting Verified 05/24/23 09:02 Social History Smoking Status: Never smoker ROS Constitutional Constitutional: Denies fever(s) or weight loss Eyes Eyes: Reports systems reviewed and no addt'l complaints, except as documented ENT HEENT: Reports systems reviewed and no addt'l complaints, except as documented Cardiovascular Cardiovascular: Reports dyspnea at rest and dyspnea on exertion; Denies chest pain at rest, chest pain with activity, edema, palpitations or paroxysmal nocturnal dyspnea Respiratory/Chest Respiratory/Chest: Reports shortness of breath at rest and shortness of breath with exertion; Denies dyspnea on exertion or productive cough Gastrointestinal Gastrointestinal: Denies change in bowel habits, nausea, vomiting or weight changes Genitourinary Genitourinary: Denies difficulty urinating Musculoskeletal Musculoskeletal: Denies joint stiffness or muscle weakness Integumentary Integumentary: Denies lesions Neurologic Neurologic: Denies dizziness or syncope Psychiatric Psychiatric: Denies anxiety Endocrine Endocrinology: Denies excessive sweating or fatigue Hematologic/Lymphatic Hematologic/Lymphatic: Denies anemia Allergic/Immunologic Allergic/Immunologic: Denies seasonal rhinorrhea Physical Exam Const alert, oriented x3 and no apparent distress General Appearance: cooperative HEENT hearing grossly normal bilaterally Head and Scalp: atraumatic Eyes EOMs intact bilaterally Neck General: normal visual inspection Chest inspection of chest normal and palpation of chest normal Resp normal respiratory effort Auscultation: clear to auscultation bilaterally Cardio regular rate, regular rhythm, S1 normal heart sound and S2 normal heart sound Jugular Venous Distention: JVD GI normal to inspection, nondistended, normoactive bowel sounds Extremity normal capillary refill and no pedal edema Peripheral Pulses: Yes pulses 2+ throughout and femoral pulses present Skin no rashes or lesions noted Neuro oriented x3 and CN's II-XII intact bilaterally Psych Appearance: grossly normal and appropriate Risk Stratification Risk Stratification Applicable: Yes Age >/= 65: Yes >/= 3 CAD Risk Factors (HTN, HLD, DM, family hx of CAD, or current smoker): Yes Aspirin Use in the Past 7 Days: No Severe Angina (>/= episodes in 24 hours): No EKG ST Changes >/= 0.5mm: No Positive Cardiac Marker: Yes ARI Risk Stratification Score: 3 ARI % Risk: 13% Risk Objective Data Vital Signs: Vital Signs Temp Pulse Resp BP Pulse Ox O2 Del Method O2 Flow Rate 97.2 F L 90 16 153/73 H 3 Nasal Cannula 3 05/24/23 16:25 05/24/23 16:25 05/24/23 16:25 05/24/23 16:25 05/24/23 16:25 05/24/23 16:25 05/24/23 16:00 FiO2 85 05/24/23 11:50 Oxygen Flow Rate (L/min) 3 Oxygen Delivery Method Nasal Cannula Weight: 125 lb 3.561 oz Body Mass Index (BMI) 24.4 Intake & Output: Intake and Output for Last 24 Hours 05/22/23 05/23/23 05/24/23 23:59 23:59 23:59 Intake Total 15.00 / 15.00 Output Total 700 / 700 Balance -685.00 / -685.00 Lab / Micro Data 05/24/23 09:30 05/24/23 09:30 Labs: Laboratory Results - last 24 hr 05/24/23 09:30: WBC 17.3 H, RBC 3.92 L, Hgb 11.1 L, Hct 36.8 L, MCV 93.9, MCH 28.3, MCHC 30.2 L, RDW Std Deviation 54.2 H, RDW Coeff of Art 15.7 H, Plt Count 452 H, MPV 10.5, Immature Gran % (Auto) 0.500, Neut % (Auto) 65.5, Lymph % (Auto) 23.4, [place] % (Auto) 4.9, Eos % (Auto) 5.0, Baso % (Auto) 0.7, Absolute Neuts (auto) 11.4 H, Absolute Lymphs (auto) 4.04, Nucleated RBC % 0, D-Dimer Quant (PE/DVT) 0.59 H*, Sodium 137, Potassium 4.2, Chloride 109 H, Carbon Dioxide 24.0, Anion Gap 4 L, BUN 43 H, Creatinine 3.84 H, Estim Creat Clear Calc 7.83, Est GFR (MDRD) Af Amer 14 L, Est GFR (MDRD) Non-Af 12 L, BUN/Creatinine Ratio 11.2, Glucose 140 H, Calcium 10.0, Total Bilirubin 0.50, Direct Bilirubin 0.13, AST 6 L, ALT 14, Alkaline Phosphatase 94, Troponin I High Sens 87 H, B-Natriuretic Peptide 625.1 H, Total Protein 6.8, Albumin 3.4, Globulin 3.4 05/24/23 13:00: Troponin I High Sens 416 H* 05/24/23 15:39: Troponin I High Sens 2017 H* Micro: Microbiology 05/24/23 09:30 Nasal Secretion SARS-CoV-2 & FLU Antigen (Rapid) - Final Cardiology Labs/Tests 05/24/23 09:30: WBC 17.3 H, RBC 3.92 L, Hgb 11.1 L, Hct 36.8 L, MCV 93.9, MCH 28.3, MCHC 30.2 L, Plt Count 452 H, MPV 10.5, Immature Gran % (Auto) 0.500, Neut % (Auto) 65.5, Lymph % (Auto) 23.4, [place] % (Auto) 4.9, Eos % (Auto) 5.0, Baso % (Auto) 0.7, Absolute Neuts (auto) 11.4 H, Nucleated RBC % 0, D-Dimer Quant (PE/DVT) 0.59 H*, Sodium 137, Potassium 4.2, Chloride 109 H, Carbon Dioxide 24.0, Anion Gap 4 L, BUN 43 H, Creatinine 3.84 H, Est GFR (MDRD) Af Amer 14 L, Est GFR (MDRD) Non-Af 12 L, BUN/Creatinine Ratio 11.2, Glucose 140 H, Calcium 10.0, Total Bilirubin 0.50, Direct Bilirubin 0.13, B-Natriuretic Peptide 625.1 H Rhythm: EKG: ECHO: Stress Test: Cardiac Cath: PCI: CT Surgery: Holter monitor: EPS: PPM: CXR: Chest CT Scan: Radiography Diagnostic Testing: Radiology Impression Chest X-Ray 05/24/23 09:09 IMPRESSION: CHF with blunting of the right costophrenic angle and right basilar atelectasis. Mild or megaly. Electronically Signed: Demarcus Jackson MD at 10:01 EDT ,
[2023-05-24] MEDS: Aspirin 81 MG TAB.CHEW PO (18:39)
[2023-05-24 19:52] LABS: International Normalized Ratio 1.1
[2023-05-24] MEDS: Carvedilol 12.5 MG Tablet PO (20:31)
[2023-05-24] MEDS: HEPARIN/D5w 25,000 UNITS 25,000 UNITS/250 ML IV.SOLN. 7 UNITS CONT INF (20:31)
--- NOTE | 2023-05-24 21:50 | PCM.CONS.R ---
Assessment & Plan Assessment/Plan (1) CKD stage 4 secondary to hypertension: (2) ZULLY (acute kidney injury): PLAN: baseline cr appears to be between 2.8 to 3.1. she does have about 1.3 gm of proteinuria at baseline. came in with HTN, CHF, possible NSTEMI. troponins trending up. will be a poor candidate for dialysis. conservative measures for now as per cardiology. ok to continue lasix. HPI Consult Data Date of Consult: 05/24/23 HPI Narrative Reason for Consultation: ZULLY HPI Narrative: FUNMI INGRAM, is a 83 F who presents to the hospital with chest tightness, dyspnea. renal consulted in view of elevated creatinine. currently feels better. diagnosed with hypertensive urgency, NSTEMI. denies any obstructive symptoms. medication list reviewed. [facility] Medical History (Updated 05/24/23 @ 21:[address] Gustavo Ricci MD) Gout Heart murmur HTN (hypertension) Kidney failure Home Medications allopurinol 100 mg tablet mg 05/24/23 [History Last Taken Unknown] diltiazem HCl 240 mg capsule,extended release 24 hr (Cartia XT) mg PO 05/24/23 [History Last Taken Unknown] hydralazine 25 mg tablet mg 05/24/23 [History Last Taken Unknown] Allergy/AdvReac Type Severity Reaction Status Date / Time prednisone Allergy Mild Hives Verified 05/24/23 12:44 morphine AdvReac Mild Vomiting Verified 05/24/23 09:02 Social History Smoking Status: Never smoker ROS ROS Narrative negative except above Physical Exam Narrative Alert awake oriented x 3 no obvious distress no pallor no icterus no JVD s1s2 no murmurs lungs clear abdomen soft no organomegaly no edema no cyanosis Lab / Micro Data 05/24/23 09:30 05/24/23 09:30 Labs: Laboratory Results - last 24 hr 05/24/23 09:30: WBC 17.3 H, RBC 3.92 L, Hgb 11.1 L, Hct 36.8 L, MCV 93.9, MCH 28.3, MCHC 30.2 L, RDW Std Deviation 54.2 H, RDW Coeff of Art 15.7 H, Plt Count 452 H, MPV 10.5, Immature Gran % (Auto) 0.500, Neut % (Auto) 65.5, Lymph % (Auto) 23.4, [place] % (Auto) 4.9, Eos % (Auto) 5.0, Baso % (Auto) 0.7, Absolute Neuts (auto) 11.4 H, Absolute Lymphs (auto) 4.04, Nucleated RBC % 0, D-Dimer Quant (PE/DVT) 0.59 H*, Sodium 137, Potassium 4.2, Chloride 109 H, Carbon Dioxide 24.0, Anion Gap 4 L, BUN 43 H, Creatinine 3.84 H, Estim Creat Clear Calc 7.83, Est GFR (MDRD) Af Amer 14 L, Est GFR (MDRD) Non-Af 12 L, BUN/Creatinine Ratio 11.2, Glucose 140 H, Calcium 10.0, Total Bilirubin 0.50, Direct Bilirubin 0.13, AST 6 L, ALT 14, Alkaline Phosphatase 94, Troponin I High Sens 87 H, B-Natriuretic Peptide 625.1 H, Total Protein 6.8, Albumin 3.4, Globulin 3.4 05/24/23 13:00: Troponin I High Sens 416 H* 05/24/23 15:39: Troponin I High Sens 2017 H* 05/24/23 19:22: PT 14.0, INR 1.1 Micro: Microbiology 05/24/23 09:30 Nasal Secretion SARS-CoV-2 & FLU Antigen (Rapid) - Final Radiology Impression Chest X-Ray 05/24/23 09:09 IMPRESSION: CHF with blunting of the right costophrenic angle and right basilar atelectasis. Mild or megaly. Electronically Signed: Demarcus Jackson MD at 10:01 EDT , Echocardiogram 05/24/23 12:41 Interpretation Summary Normal LV size. Moderate segmental systolic dysfunction (see wall motion). The left ventricular ejection fraction is 40 %. Stage 1 diastolic dysfunction. The distal anterior wall and lateral apical wall are severely hypokinetic. Ordering Physician: Josephine Escobar Referring Physician: Jodi Felix Performed By: Lizeth Middleton RDCS, RVT
[2023-05-25] VITALS (23 sets, daily range): BP systolic 97–149; BP diastolic 45–61; PULSE 55–65; RESP 15–20; TEMP 36.3–36.7; O2SAT 89–100
[2023-05-25 03:06] LABS: Partial Thromboplast Time 63.9 Seconds (24.1-36.2)
[2023-05-25] MEDS: amLODIPine 5 MG Tablet PO (10:12)
[2023-05-25] MEDS: Carvedilol 12.5 MG Tablet PO ×2 (10:12→21:09)
[2023-05-25] MEDS: Aspirin 81 MG TAB.CHEW PO (10:13)
[2023-05-25 10:16] LABS: Partial Thromboplast Time 57.6 Seconds (24.1-36.2)
--- NOTE | 2023-05-25 10:50 | CASEMGMT ---
RN?CM?PATIENT CARE MANAGER?CM?to room to meet with patient for initial transition planning/care coordination?assessment.?RN?CM?introduced self and role at [facility].? Pt voices understanding and consents to?assessment?at this time.? Pt sitting up in chair in room in no distress at this time.? Son, Virgilio Pringle, in room visiting and pt agreeable to him being present during assessment. Pt is A/O at this time and answers all questions appropriately.?? Care providers, pharmacy, and demographics verified/updated at this time. PCP: Dr Felix Specialists: none [facility]erred [facility]acy[facility] Insurance:MMO [facility] Prescription Benefit:?Yes Living Will/HPOA:?Has a LW, but does not have HCPOA. She declines wanting to complete w/SW while @ [facility]. She states a family friend is an estate planning attorney and she plans to f/u with him to complete this. LNOK: 3 adult children. Living Arrangements: Lives alone in one-story home w/no steps to enter. Dtr lives right next door. Pt states she is independent w/ADL's, IADL's, and manages her own medications. Pt reports very good family support. Transportation:?Pt states drives self and states no transportation concerns at this time.?Family will take her home @ discharge. DME: ?States has the following DME:?built-in shower seat. Pt uses no AD to ambulate. She does not have home O2. Pt states, if she qualifies for O2 @ discharge, she does not have preference of DME co. Discussed local options and she chooses [employer]. Recommended to purchase a pulse ox. Pt states no need for further DME at this time.? HHC/SNF: No hx of either. Pt declines HHC. Pt wishes to return home and states has no concerns with going home at time of discharge.? CM?to follow for home oxygen needs and any further discharge planning/needs.? Pt voices no further concerns/needs at this time.? Advised pt to ask for?CM?if any further questions/concerns/needs arise.? Voices understanding. PLAN:??Home Follow for possible need of Home O2. Rachelle SYLVESTERN?RN?CM
--- NOTE | 2023-05-25 11:24 | NURSING ---
Placed call to pt PCP requesting medication list, pending fax/call back.
--- NOTE | 2023-05-25 11:50 | PN.RENAL_ITS ---
Subjective Subjective Sitting in chair. No overnight events. States overall feeling better and breathing better. Denies any complaints. Son at bedside. Objective Data Objective Data Vital Signs: Vital Signs Temp Pulse Resp BP Pulse Ox O2 Del Method O2 Flow Rate 97.3 F L 60 18 149/60 H 98 Nasal Cannula 2 05/25/23 08:53 05/25/23 10:12 05/25/23 08:53 05/25/23 10:12 05/25/23 08:51 05/25/23 10:20 05/25/23 10:20 FiO2 85 05/24/23 11:50 Oxygen Flow Rate (L/min) 2 Oxygen Delivery Method Nasal Cannula Weight: 56.8 kg Body Mass Index (BMI) 24.4 Intake & Output: Intake and Output for Last 24 Hours 05/23/23 05/24/23 05/25/23 23:59 23:59 23:59 Intake Total 90.10 / 102.10 78.88 / 78.88 Output Total 1150 / 1450 400 / 400 Balance -1059.90 / -1347.90 -321.12 / -321.12 Lab / Micro Data 05/24/23 09:30 05/24/23 09:30 Labs: Laboratory Results - last 24 hr 05/24/23 13:00: Troponin I High Sens 416 H* 05/24/23 15:39: Troponin I High Sens 2017 H* 05/24/23 19:22: PT 14.0, INR 1.1 05/25/23 02:45: APTT 63.9 H 05/25/23 09:35: APTT 57.6 H Micro: Microbiology 05/24/23 09:30 Nasal Secretion SARS-CoV-2 & FLU Antigen (Rapid) - Final Radiography Diagnostic Testing: Radiology Impression Echocardiogram 05/24/23 12:41 Interpretation Summary Normal LV size. Moderate segmental systolic dysfunction (see wall motion). The left ventricular ejection fraction is 40 %. Stage 1 diastolic dysfunction. The distal anterior wall and lateral apical wall are severely hypokinetic. Ordering Physician: Josephine Escobar Referring Physician: Jodi Felix Performed By: Lizeth Middleton, RAOUL, RVT Physical Exam Narrative Alert awake oriented x 3 no obvious distress no JVD s1s2 no murmurs lungs clear abdomen soft no edema hendricks with clear urine in bag Assessment & Plan Assessment/Plan (1) CKD stage 4 secondary to hypertension: (2) ZULLY (acute kidney injury): PLAN: Baseline SCr appears to be between 2.8 to 3.1. she does have about 1.3 gm of proteinuria at baseline. came in with HTN, CHF, possible NSTEMI. -Serum creatinine 3.84 on admission yesterday, no labs today. Patient is no noliguric. Labs ordered for a.m. Patient states if it came to dialysis she would not undergo hemodialysis. - troponins trending up; cardiology following. Echo normal LV size, EF 40%, moderate systolic dysfunction, stage I diastolic dysfunction, distal anterior wall and lateral apical wall severely hypokinetic. conservative measures for now as per cardiology. On Lasix patient is net negative around 1.5 L so far. -Blood pressures acceptable
--- NOTE | 2023-05-25 13:28 | CM.ED ---
Social Work Patient has reported completing advance directives in which her son Pino is HCPOA. Copy is not on file, patient has been notified to provide copy of documents when able. Myriam Yusuf [employer] PLANT OPERATOR, [employer]IRE [employer]YLUS GRINDER
--- NOTE | 2023-05-25 13:30 | PN_ITS ---
Subjective Subjective Patient seen and examined. Son was by her bedside. She felt much better today. Shortness of breath had improved. She denied any chest pain, palpitations, dizziness, nausea or vomiting or any other symptoms. Review of systems otherwise negative. Objective Data Objective Data Vital Signs: Vital Signs Temp Pulse Resp BP Pulse Ox O2 Del Method O2 Flow Rate 97.3 F L 60 18 149/60 H 98 Nasal Cannula 2 05/25/23 08:53 05/25/23 10:12 05/25/23 08:53 05/25/23 10:12 05/25/23 08:51 05/25/23 10:20 05/25/23 10:20 FiO2 85 05/24/23 11:50 Oxygen Flow Rate (L/min) 2 Oxygen Delivery Method Nasal Cannula Weight: 125 lb 3.561 oz Body Mass Index (BMI) 24.4 Intake & Output: Intake and Output for Last 24 Hours 05/23/23 05/24/23 05/25/23 23:59 23:59 23:59 Intake Total 90.10 / 102.10 78.88 / 78.88 Output Total 1150 / 1450 400 / 400 Balance -1059.90 / -1347.90 -321.12 / -321.12 Lab / Micro Data 05/24/23 09:30 05/24/23 09:30 Labs: Laboratory Results - last 24 hr 05/24/23 15:39: Troponin I High Sens 2017 H* 05/24/23 19:22: PT 14.0, INR 1.1 05/25/23 02:45: APTT 63.9 H 05/25/23 09:35: APTT 57.6 H Micro: Microbiology 05/24/23 09:30 Nasal Secretion SARS-CoV-2 & FLU Antigen (Rapid) - Final Radiography Diagnostic Testing: Radiology Impression Echocardiogram 05/24/23 12:41 Interpretation Summary Normal LV size. Moderate segmental systolic dysfunction (see wall motion). The left ventricular ejection fraction is 40 %. Stage 1 diastolic dysfunction. The distal anterior wall and lateral apical wall are severely hypokinetic. Ordering Physician: Josephine Escobar Referring Physician: Jodi Felix Performed By: Lizeth Middleton, RAOUL, RVT Physical Exam Const alert, oriented x3 and no apparent distress Constitutional Narrative: frail General Appearance: cooperative HEENT normocephalic, head/scalp atraumatic, moist oral mucous membranes and oropharynx normal Eyes PERRL and EOMs intact bilaterally Neck no lymphadenopathy and supple Lymph Lymphatic: no lymphadenopathy noted and no lymphedema noted Resp Resp Narrative: tachypneic, moderately diminished breath sounds bibasally, bilateral crackles. On 2L of oxygen Cardio regular rate, regular rhythm, S1 normal heart sound, S2 normal heart sound and no murmurs Cardio Narrative: diminished breath sounds bibasally, mild crackles. GI normal to inspection, nondistended, normoactive bowel sounds, soft to palpation, non-tender and non-distended Extremity normal capillary refill, no clubbing, cyanosis or edema and no calf tenderness Skin General Skin Exam: no breakdown Neuro CN's II-XII intact bilaterally, no focal motor deficits, no sensory deficits noted and deep tendon reflexes 2+ bilaterally Motor Exam: strength 5/5 throughout and general weakness Psych thought process normal, cooperative and affect normal Appearance: appropriate Assessment & Plan Assessment/Plan (1) CHF exacerbation: PLAN: Plan #Acute heart failure with reduced EF * feels much better. Now off nitro drip * admit to PCU * Had had shortness of breath for several days but worsened on the day of presentation. She has no history of heart failure. She had a stat orthopnea and PND. * EKG showed ST depression in V4 V5 and V6. Chest x-ray showed evidence of heart failure. * BNP elevated at 625. * Initial troponin was only slightly elevated at 87 but trended up to a peak of 2017. * Cardiology consulted. Patient started on Cardizem drip as blood pressure became markedly elevated in the ED at over 200 systolic. * Was given a dose of IV Lasix 20 mg x 1 in the ED. Per cardiology will give another dose of 80 mg x 1 and start on Lasix drip. Also started on nitroglycerin drip * Started on heparin drip on account of non-STEMI. * 2D echo ordered monitor intake and output. Fluid restriction to 1500 cc daily * #Non-STEMI * Troponins peaked at 2017. 2D echo showed EF of 40% and stage 1 diastolic dysfunction and severe hypokinesia of the LV ventricular wall. * Give aspirin and high intensity statin. * lipid profile showed total cholesterol of 205, LDL of 129 and HDL of 46. A1C is pending * stop heparin drip. Continue aspirin and high intensity statin as well as Plavix. * Cardiology on board. On carvedilol * #Hypertensive emergency * Resolved. Now on carvedilol and amlodipine. IV hydralazine as needed. * #CKD stage V. * Patient's creatinine is 3.84. Baseline is around 3.12 from December 2022. * Nephrology on board. On Lasix drip. BMP pending. * DVT prophylaxis; heparin drip. Will DC heparin drip today and switch to subcu heparin CODE STATUS: DNR CCA no intubation * Patient and her son counseled extensively about different types of CODE STATUS including full code, DNR CCA and DNR CCA. Patient's wishes to be DNR CCA no intubation. Total [id number]-pq-enal time 18 minutes. Charges/Coding Visit Charges Inpatient E&M: 93945 Subs Hosp L2
[2023-05-25 14:16] LABS: Absolute Neutrophil Count 9.8 X10^3/uL (2.0-7.7); Basophil# 0.08 X10^3/uL; Basophil% 0.6 % (0-1); Eosinophil# 0.28 X10^3/uL; Hematocrit 36.9 % (37-47); Hemoglobin 11.5 g/dL (12.0-15.0); Lymphocyte % 20.3 % (19-41); Mean Corp Hgb Conc 31.2 g/dL (32-36); Mean Corpuscular Hgb 29.1 pg (27.0-32.0); Mean Corpuscular Volume 93.4 fL (81-99); Mean Platelet Vol. 11.5 fl (6.2-12.0); Monocyte# 0.79 X10^3/uL; Monocyte% 5.7 % (0-10); NRBC Flagged by Analyzer 0 % (0-5); Neutrophil # 9.78 X10^3/uL (2.7-7.7); Platelet Count 414 K/mm3 (150-450); RBC Distribution Width CV 15.9 % (11.6-14.6); RBC Distribution Width SD 54.4 fl (35.1-43.9); Red Blood Count 3.95 M/mm3 (4.2-5.4); White Blood Count 13.8 K/mm3 (4.4-11.0)
[2023-05-25 14:17] LABS: Anion Gap 6 (5-15); BUN 48 mg/dL (7-18); BUN/Creat Ratio 11.5 RATIO (10-20); Calcium,Total 9.7 mg/dL (8.5-10.1); Chloride 108 mmol/L (98-107); Creatinine, Serum 4.18 mg/dL (0.55-1.02); EST Glomerular Filtration Rate 11 mL/min (>60); Est Glom Filt Rate - Afr Amer 13 mL/min (>60); Glucose 96 mg/dL (74-106); Potassium 5.1 mmol/L (3.5-5.1); Sodium Level 138 mmol/L (136-145)
--- NOTE | 2023-05-25 18:01 | PN.CARD_ITS ---
Subjective Subjective Patient seen and evaluated. Appears to be doing much better today. Objective Data Vital Signs: Vital Signs Temp Pulse Resp BP Pulse Ox O2 Del Method O2 Flow Rate 97.7 F L 62 17 147/61 H 100 Nasal Cannula 2 05/25/23 17:15 05/25/23 17:15 05/25/23 17:15 05/25/23 17:15 05/25/23 17:15 05/25/23 17:15 05/25/23 17:15 FiO2 85 05/24/23 11:50 Oxygen Flow Rate (L/min) 2 Oxygen Delivery Method Nasal Cannula Weight: 125 lb 3.561 oz Body Mass Index (BMI) 24.4 Intake & Output: Intake and Output for Last 24 Hours 05/23/23 05/24/23 05/25/23 23:59 23:59 23:59 Intake Total 90.10 / 102.10 558.88 / 558.88 Output Total 1150 / 1450 400 / 400 Balance -1059.90 / -1347.90 158.88 / 158.88 Lab / Micro Data 05/25/23 09:35 05/25/23 02:45 Labs: Laboratory Results - last 24 hr 05/24/23 19:22: PT 14.0, INR 1.1 05/25/23 02:45: APTT 63.9 H, Sodium 138, Potassium 5.1, Chloride 108 H, Carbon Dioxide 24.0, Anion Gap 6, BUN 48 H, Creatinine 4.18 H, Estim Creat Clear Calc 7.20, Est GFR (MDRD) Af Amer 13 L, Est GFR (MDRD) Non-Af 11 L, BUN/Creatinine Ratio 11.5, Glucose 96, Calcium 9.7 05/25/23 09:35: WBC 13.8 H, RBC 3.95 L, Hgb 11.5 L, Hct 36.9 L, MCV 93.4, MCH 2 9.1, MCHC 31.2 L, RDW Std Deviation 54.4 H, RDW Coeff of Art 15.9 H, Plt Count 414, MPV 11.5, Immature Gran % (Auto) 0.400, Neut % (Auto) 71.0 H, Lymph % (Auto) 20.3, [place] % (Auto) 5.7, Eos % (Auto) 2.0, Baso % (Auto) 0.6, Absolute Neuts (auto) 9.8 H, Absolute Lymphs (auto) 2.80, Nucleated RBC % 0, APTT 57.6 H Cardiology Labs/Tests 05/24/23 19:22: PT 14.0, INR 1.1 05/25/23 02:45: APTT 63.9 H, Sodium 138, Potassium 5.1, Chloride 108 H, Carbon Dioxide 24.0, Anion Gap 6, BUN 48 H, Creatinine 4.18 H, Est GFR (MDRD) Af Amer 13 L, Est GFR (MDRD) Non-Af 11 L, BUN/Creatinine Ratio 11.5, Glucose 96, Calcium 9.7 05/25/23 09:35: WBC 13.8 H, RBC 3.95 L, Hgb 11.5 L, Hct 36.9 L, MCV 93.4, MCH 29.1, MCHC 31.2 L, Plt Count 414, MPV 11.5, Immature Gran % (Auto) 0.400, Neut % (Auto) 71.0 H, Lymph % (Auto) 20.3, Mayes % (Auto) 5.7, Eos % (Auto) 2.0, Baso % (Auto) 0.6, Absolute Neuts (auto) 9.8 H, Nucleated RBC % 0, APTT 57.6 H Rhythm: EKG: ECHO: Stress Test: Cardiac Cath: PCI: CT Surgery: Holter monitor: EPS: PPM: CXR: Chest CT Scan: Radiography Diagnostic Testing: Radiology Impression Echocardiogram 05/24/23 12:41 Interpretation Summary Normal LV size. Moderate segmental systolic dysfunction (see wall motion). The left ventricular ejection fraction is 40 %. Stage 1 diastolic dysfunction. The distal anterior wall and lateral apical wall are severely hypokinetic. Ordering Physician: Josephine Escobar Referring Physician: Jodi Felix Performed By: Lizeth Middleton, RAOUL, RVT Physical Exam Const alert, oriented x3 and no apparent distress Constitutional Narrative: frail General Appearance: cooperative HEENT normocephalic, head/scalp atraumatic, moist oral mucous membranes and oropharynx normal Eyes PERRL and EOMs intact bilaterally Neck no lymphadenopathy and supple Lymph Lymphatic: no lymphadenopathy noted and no lymphedema noted Resp Resp Narrative: tachypneic, moderately diminished breath sounds bibasally, bilateral crackles. On 2L of oxygen Cardio regular rate, regular rhythm, S1 normal heart sound, S2 normal heart sound and no murmurs Cardio Narrative: diminished breath sounds bibasally, mild crackles. GI normal to inspection, nondistended, normoactive bowel sounds, soft to palpation, non-tender and non-distended Extremity normal capillary refill, no clubbing, cyanosis or edema and no calf tenderness Skin General Skin Exam: no breakdown Neuro CN's II-XII intact bilaterally, no focal motor deficits, no sensory deficits noted and deep tendon reflexes 2+ bilaterally Motor Exam: strength 5/5 throughout and general weakness Psych thought process normal, cooperative and affect normal Appearance: appropriate Assessment & Plan Assessment/Plan (1) CHF exacerbation: PLAN: She presented with an exacerbation of congestive heart failure [place] Heart Association class III. The above is likely secondary to severe hypertension though coronary disease cannot be completely excluded especially due to the fact that she does have segmental wall motion abnormalities noted on her echocardiogram which has an ejection fraction of approximately 40%. My recommendation will be to continue with oral Lasix * DC IV nitroglycerin and start oral isosorbide (2) HTN (hypertension): PLAN: Her blood pressure was markedly elevated. * Will recommend carvedilol 12.5 mg twice a day * Amlodipine 10 mg a day (3) NSTEMI (non-ST elevation myocardial infarction): PLAN: She has a non-ST elevation myocardial infarction. She does have segmental wall motion abnormalities. Her renal function is compromised and at this time she does not want any invasive therapy. We will therefore continue to optimize her medical therapy. We will institute high intensity statin Baby aspirin
[2023-05-25] MEDS: Furosemide 40 MG Tablet PO (18:43)
[2023-05-26 03:22] VITALS: BP 130/58; PULSE 66; RESP 16; TEMP 36.3; O2SAT 95
[2023-05-26] MEDS: Acetaminophen 325 MG Tablet 650 MG PO ×2 (03:26→20:36)
[2023-05-26] MEDS: 0.9% Saline Lock 10 ML Syringe IV ×3 (03:27→22:10)
[2023-05-26 05:47] VITALS: BMI 25.2
[2023-05-26 07:03] LABS: Anion Gap 6 (5-15); BUN 62 mg/dL (7-18); BUN/Creat Ratio 12.3 RATIO (10-20); Calcium,Total 9.5 mg/dL (8.5-10.1); Chloride 104 mmol/L (98-107); Creatinine, Serum 5.04 mg/dL (0.55-1.02); EST Glomerular Filtration Rate 9 mL/min (>60); Est Glom Filt Rate - Afr Amer 11 mL/min (>60); Estimated Creatinine Clearance 5.97 ml/min; Glucose 95 mg/dL (74-106); Magnesium 2.1 mg/dL (1.6-2.6); Potassium 4.5 mmol/L (3.5-5.1); Sodium Level 135 mmol/L (136-145)
[2023-05-26 08:13] VITALS: BP 157/72; PULSE 68
[2023-05-26] MEDS: Aspirin 81 MG TAB.CHEW PO (08:14)
[2023-05-26] MEDS: Furosemide 40 MG Tablet PO (08:14)
[2023-05-26] MEDS: Isosorbide Mononitrate 30 MG Tablet PO (08:14)
[2023-05-26] MEDS: amLODIPine 5 MG Tablet PO (08:17)
[2023-05-26] MEDS: Carvedilol 12.5 MG Tablet PO ×2 (08:17→22:10)
--- NOTE | 2023-05-26 08:17 | PCM.PN.CARD ---
Objective Data Vital Signs: Vital Signs Temp Pulse Resp BP Pulse Ox O2 Del Method O2 Flow Rate 97.4 F L 66 16 130/58 H 95 Room Air 2 05/26/23 03:22 05/26/23 03:22 05/26/23 03:22 05/26/23 03:22 05/26/23 03:22 05/26/23 04:03 05/25/23 17:15 FiO2 85 05/24/23 11:50 Oxygen Flow Rate (L/min) 2 Oxygen Delivery Method Room Air Weight: 129 lb 3.054 oz Body Mass Index (BMI) 25.2 Intake & Output: Intake and Output for Last 24 Hours 05/24/23 05/25/23 05/26/23 23:59 23:59 23:59 Intake Total 90.10 / 102.10 1171.31 / 1171.31 100 / 100 Output Total 1150 / 1450 1000 / 1000 200 / 200 Balance -1059.90 / -1347.90 171.31 / 171.31 -100 / -100 Lab / Micro Data 05/25/23 09:35 05/26/23 05:20 Labs: Laboratory Results - last 24 hr 05/25/23 02:45: Sodium 138, Potassium 5.1, Chloride 108 H, Carbon Dioxide 24.0, Anion Gap 6, BUN 48 H, Creatinine 4.18 H, Estim Creat Clear Calc 7.20, Est GFR (MDRD) Af Amer 13 L, Est GFR (MDRD) Non-Af 11 L, BUN/Creatinine Ratio 11.5, Glucose 96, Calcium 9.7 05/25/23 09:35: WBC 13.8 H, RBC 3.95 L, Hgb 11.5 L, Hct 36.9 L, MCV 93.4, MCH 29.1, MCHC 31.2 L, RDW Std Deviation 54.4 H, RDW Coeff of Art 15.9 H, Plt Count 414, MPV 11.5, Immature Gran % (Auto) 0.400, Neut % (Auto) 71.0 H, Lymph % (Auto) 20.3, [place] % (Auto) 5.7, Eos % (Auto) 2.0, Baso % (Auto) 0.6, Absolute Neuts (auto) 9.8 H, Absolute Lymphs (auto) 2.80, Nucleated RBC % 0, APTT 57.6 H 05/26/23 05:20: Sodium 135 L, Potassium 4.5, Chloride 104, Carbon Dioxide 25.0, Anion Gap 6, BUN 62 H, Creatinine 5.04 H, Estim Creat Clear Calc 5.97, Est GFR (MDRD) Af Amer 11 L, Est GFR (MDRD) Non-Af 9 L, BUN/Creatinine Ratio 12.3, Glucose 95, Calcium 9.5, Magnesium 2.1 Cardiology Labs/Tests 05/25/23 02:45: Sodium 138, Potassium 5.1, Chloride 108 H, Carbon Dioxide 24.0, Anion Gap 6, BUN 48 H, Creatinine 4.18 H, Est GFR (MDRD) Af Amer 13 L, Est GFR (MDRD) Non-Af 11 L, BUN/Creatinine Ratio 11.5, Glucose 96, Calcium 9.7 05/25/23 09:35: WBC 13.8 H, RBC 3.95 L, Hgb 11.5 L, Hct 36.9 L, MCV 93.4, MCH 29.1, MCHC 31.2 L, Plt Count 414, MPV 11.5, Immature Gran % (Auto) 0.400, Neut % (Auto) 71.0 H, Lymph % (Auto) 20.3, [place] % (Auto) 5.7, Eos % (Auto) 2.0, Baso % (Auto) 0.6, Absolute Neuts (auto) 9.8 H, Nucleated RBC % 0, APTT 57.6 H 05/26/23 05:20: Sodium 135 L, Potassium 4.5, Chloride 104, Carbon Dioxide 25.0, Anion Gap 6, BUN 62 H, Creatinine 5.04 H, Est GFR (MDRD) Af Amer 11 L, Est GFR (MDRD) Non-Af 9 L, BUN/Creatinine Ratio 12.3, Glucose 95, Calcium 9.5, Magnesium 2.1 Rhythm: EKG: ECHO: Stress Test: Cardiac Cath: PCI: CT Surgery: Holter monitor: EPS: PPM: CXR: Chest CT Scan: Physical Exam Const alert, oriented x3 and no apparent distress Constitutional Narrative: frail General Appearance: cooperative HEENT normocephalic, head/scalp atraumatic, moist oral mucous membranes and oropharynx normal Eyes PERRL and EOMs intact bilaterally Neck no lymphadenopathy and supple Lymph Lymphatic: no lymphadenopathy noted and no lymphedema noted Resp Resp Narrative: tachypneic, moderately diminished breath sounds bibasally, bilateral crackles. On 2L of oxygen Cardio regular rate, regular rhythm, S1 normal heart sound, S2 normal heart sound and no murmurs Cardio Narrative: diminished breath sounds bibasally, mild crackles. GI normal to inspection, nondistended, normoactive bowel sounds, soft to palpation, non-tender and non-distended Extremity normal capillary refill, no clubbing, cyanosis or edema and no calf tenderness Skin General Skin Exam: no breakdown Neuro CN's II-XII intact bilaterally, no focal motor deficits, no sensory deficits noted and deep tendon reflexes 2+ bilaterally Motor Exam: strength 5/5 throughout and general weakness Psych thought process normal, cooperative and affect normal Appearance: appropriate Assessment & Plan Assessment/Plan (1) CHF exacerbation: PLAN: She presented with an exacerbation of congestive heart failure [place] Heart Association class III. The above is likely secondary to severe hypertension though coronary disease cannot be completely excluded especially due to the fact that she does have segmental wall motion abnormalities noted on her echocardiogram which has an ejection fraction of approximately 40%. My recommendation will be to continue with oral Lasix start oral isosorbide (2) HTN (hypertension): PLAN: Her blood pressure was markedly elevated. Will recommend carvedilol 12.5 mg twice a day Amlodipine 10 mg a day (3) NSTEMI (non-ST elevation myocardial infarction): PLAN: She has a non-ST elevation myocardial infarction. She does have segmental wall motion abnormalities. Her renal function is compromised and at this time she does not want any invasive therapy. We will therefore continue to optimize her medical therapy. We will institute high intensity statin Baby aspirin
[2023-05-26 09:55] VITALS: BP 95/45; PULSE 61; RESP 14; TEMP 36.2; O2SAT 97
--- NOTE | 2023-05-26 11:29 | PN_ITS ---
Subjective Subjective Patient seen and examined. She said she felt so much better today. Her Cr has however trended up to 5 today. BP is down to 90s systolic. Objective Data Objective Data Vital Signs: Vital Signs Temp Pulse Resp BP Pulse Ox O2 Del Method O2 Flow Rate 97.1 F L 61 14 95/45 L 97 Room Air 2 05/26/23 09:55 05/26/23 09:55 05/26/23 09:55 05/26/23 09:55 05/26/23 09:55 05/26/23 09:55 05/25/23 17:15 FiO2 85 05/24/23 11:50 Oxygen Flow Rate (L/min) 2 Oxygen Delivery Method Room Air Weight: 129 lb 3.054 oz Body Mass Index (BMI) 25.2 Intake & Output: Intake and Output for Last 24 Hours 05/24/23 05/25/23 05/26/23 23:59 23:59 23:59 Intake Total 90.10 / 102.10 1171.31 / 1171.31 100 / 100 Output Total 1150 / 1450 1000 / 1000 200 / 200 Balance -1059.90 / -1347.90 171.31 / 171.31 -100 / -100 Lab / Micro Data 05/25/23 09:35 05/26/23 05:20 Labs: Laboratory Results - last 24 hr 05/25/23 02:45: Sodium 138, Potassium 5.1, Chloride 108 H, Carbon Dioxide 24.0, Anion Gap 6, BUN 48 H, Creatinine 4.18 H, Estim Creat Clear Calc 7.20, Est GFR (MDRD) Af Amer 13 L, Est GFR (MDRD) Non-Af 11 L, BUN/Creatinine Ratio 11.5, Glucose 96, Calcium 9.7 05/25/23 09:35: WBC 13.8 H, RBC 3.95 L, Hgb 11.5 L, Hct 36.9 L, MCV 93.4, MCH 29.1, MCHC 31.2 L, RDW Std Deviation 54.4 H, RDW Coeff of Art 15.9 H, Plt Count 414, MPV 11.5, Immature Gran % (Auto) 0.400, Neut % (Auto) 71.0 H, Lymph % (Auto) 20.3, [place] % (Auto) 5.7, Eos % (Auto) 2.0, Baso % (Auto) 0.6, Absolute Neuts (auto) 9.8 H, Absolute Lymphs (auto) 2.80, Nucleated RBC % 0 05/26/23 05:20: Sodium 135 L, Potassium 4.5, Chloride 104, Carbon Dioxide 25.0, Anion Gap 6, BUN 62 H, Creatinine 5.04 H, Estim Creat Clear Calc 5.97, Est GFR (MDRD) Af Amer 11 L, Est GFR (MDRD) Non-Af 9 L, BUN/Creatinine Ratio 12.3, Glucose 95, Calcium 9.5, Magnesium 2.1 Micro: Microbiology 05/24/23 09:30 Nasal Secretion SARS-CoV-2 & FLU Antigen (Rapid) - Final Physical Exam Const alert, oriented x3 and no apparent distress Constitutional Narrative: frail General Appearance: cooperative HEENT normocephalic, head/scalp atraumatic, moist oral mucous membranes and oropharynx normal Eyes PERRL and EOMs intact bilaterally Neck no lymphadenopathy and supple Lymph Lymphatic: no lymphadenopathy noted and no lymphedema noted Resp Resp Narrative: tachypneic, moderately diminished breath sounds bibasally, bilateral crackles. On room air. Cardio regular rate, regular rhythm, S1 normal heart sound, S2 normal heart sound and no murmurs GI normal to inspection, nondistended, normoactive bowel sounds, soft to palpation, non-tender and non-distended Extremity normal capillary refill, no clubbing, cyanosis or edema and no calf tenderness Skin General Skin Exam: no breakdown Neuro CN's II-XII intact bilaterally, no focal motor deficits, no sensory deficits noted and deep tendon reflexes 2+ bilaterally Motor Exam: strength 5/5 throughout and general weakness Psych thought process normal, cooperative and affect normal Appearance: appropriate Assessment & Plan Assessment/Plan (1) CHF exacerbation: PLAN: Plan #Acute heart failure with reduced EF * feels much better. * EKG showed ST depression in V4 V5 and V6. Chest x-ray showed evidence of heart failure. * BNP elevated at 625. * Initial troponin was only slightly elevated at 87 but trended up to a peak of 2017. * Cardiology on board. * now off nitroglycerin drip and heparin drip. * Fluid restriction to 1500 cc daily * 2D echo showed EF of 40% and stage 1 diastolic dysfunction and severe hypokinesia of the LV ventricular wall. * #Non-STEMI * Troponins peaked at 2016. 2D echo showed EF of 40% and stage 1 diastolic dysfunction and severe hypokinesia of the LV ventricular wall. * Give aspirin and high intensity statin. * lipid profile showed total cholesterol of 205, LDL of 129 and HDL of 46. A1C is pending * stop heparin drip. Continue aspirin and high intensity statin as well as Plavix. * Cardiology on board. On carvedilol * #Hypertension * was admitted with hypertensive emergency * Resolved. Now on carvedilol and amlodipine. IV hydralazine as needed. * #ZULLY on CKD stage V. * Patient's creatinine is 3.84. Baseline is around 3.12 from December 2022. * Nephrology on board. * now off lasix drip. Cr trended up to 5 today. * hold lasix as Bp also running low, in the 90s systolic. * hydrate very gently with IVF NS @ 75cc/hr x 500ml. * DVT prophylaxis; on Sq heparin 5000 units q12 CODE STATUS: DNR CCA no intubation * Patient and her son counseled extensively about different types of CODE STATUS including full code, DNR CCA and DNR CCA. Patient's wishes to be DNR CCA no intubation. * Total [id number] time 18 minutes. Charges/Coding Visit Charges Inpatient E&M: 71439 Subs Hosp L3
[2023-05-26 11:50] VITALS: BP 110/50
[2023-05-26] MEDS: 0.9% Normal Saline (1000mL) 1,000 ML 75 ML IV (11:51)
[2023-05-26] MEDS: Heparin Injection (Vial) 5,000 UNIT/ML VIAL 5000 UNIT SC ×2 (11:55→22:10)
[2023-05-26 12:01] LABS: Hemoglobin A1c 4.8 % (3.8-5.6)
--- NOTE | 2023-05-26 12:09 | CASEMGMT ---
RN CM NOTE: RN CM to room. Pt sitting up in chair. Awake/alert. Discussed Pt Link for CHF and pt interested in the program and agreeable to referral. Ordre placed. Rachelle SYLVESTERN RN CM
--- NOTE | 2023-05-26 14:21 | PCM.PN.REN ---
Subjective Subjective No new complaints Objective Data Objective Data Vital Signs: Vital Signs Temp Pulse Resp BP Pulse Ox O2 Del Method O2 Flow Rate 97.1 F L 61 14 110/50 L 97 Room Air 2 05/26/23 09:55 05/26/23 09:55 05/26/23 09:55 05/26/23 11:50 05/26/23 09:55 05/26/23 09:55 05/25/23 17:15 FiO2 85 05/24/23 11:50 Oxygen Flow Rate (L/min) 2 Oxygen Delivery Method Room Air Weight: 58.6 kg Body Mass Index (BMI) 25.2 Intake & Output: Intake and Output for Last 24 Hours 05/24/23 05/25/23 05/26/23 23:59 23:59 23:59 Intake Total 90.10 / 102.10 1171.31 / 1171.31 460 / 460 Output Total 1150 / 1450 1000 / 1000 500 / 500 Balance -1059.90 / -1347.90 171.31 / 171.31 -40 / -40 Lab / Micro Data 05/25/23 09:35 05/26/23 05:20 Labs: Laboratory Results - last 24 hr 05/26/23 05:20: Sodium 135 L, Potassium 4.5, Chloride 104, Carbon Dioxide 25.0, Anion Gap 6, BUN 62 H, Creatinine 5.04 H, Estim Creat Clear Calc 5.97, Est GFR (MDRD) Af Amer 11 L, Est GFR (MDRD) Non-Af 9 L, BUN/Creatinine Ratio 12.3, Glucose 95, Hemoglobin A1c 4.8, Calcium 9.5, Magnesium 2.1 Micro: Microbiology 05/24/23 09:30 Nasal Secretion SARS-CoV-2 & FLU Antigen (Rapid) - Final Physical Exam Narrative Alert awake oriented x 3 no obvious distress no JVD s1s2 no murmurs lungs clear abdomen soft no edema Assessment & Plan Assessment/Plan (1) CKD stage 4 secondary to hypertension: (2) ZULLY (acute kidney injury): PLAN: Baseline SCr appears to be between 2.8 to 3.1. she does have about 1.3 gm of proteinuria at baseline. came in with HTN, CHF, possible NSTEMI. -Serum creatinine 3.84 on admission, Increased to 5.0 today. Volume status is good. diuretics have been cut back already.
[2023-05-26 16:10] VITALS: BP 119/58; PULSE 58; RESP 16; TEMP 36.3; O2SAT 100
[2023-05-26 22:06] VITALS: BP 138/61; PULSE 64; RESP 16; TEMP 36.6; O2SAT 94
[2023-05-26] MEDS: Atorvastatin Calcium 40 MG Tablet PO (22:10)
[2023-05-27 03:38] VITALS: BP 112/46; PULSE 60; RESP 18; TEMP 36.9; O2SAT 95
[2023-05-27 04:10] VITALS: BMI 25.2
[2023-05-27 07:55] VITALS: O2SAT 96
[2023-05-27 08:00] LABS: Absolute Lymphocyte Count 3.45 X10^3/uL (0.83-4.51); Absolute Neutrophil Count 5.4 X10^3/uL (2.0-7.7); Basophil# 0.07 X10^3/uL; Basophil% 0.7 % (0-1); Eosinophil# 0.79 X10^3/uL; Eosinophils% 7.5 % (0-5); Hematocrit 31.7 % (37-47); Hemoglobin 9.8 g/dL (12.0-15.0); Lymphocyte # 3.45 X10^3/ul (0.83-4.51); Lymphocyte % 32.6 % (19-41); Mean Corp Hgb Conc 30.9 g/dL (32-36); Mean Corpuscular Hgb 29.1 pg (27.0-32.0); Mean Corpuscular Volume 94.1 fL (81-99); Mean Platelet Vol. 11.5 fl (6.2-12.0); Monocyte# 0.88 X10^3/uL; Monocyte% 8.3 % (0-10); NRBC Flagged by Analyzer 0 % (0-5); Neutrophil # 5.35 X10^3/uL (2.7-7.7); Neutrophil % 50.6 % (47-70); Platelet Count 334 K/mm3 (150-450); RBC Distribution Width CV 15.5 % (11.6-14.6); RBC Distribution Width SD 53.2 fl (35.1-43.9); Red Blood Count 3.37 M/mm3 (4.2-5.4); White Blood Count 10.6 K/mm3 (4.4-11.0)
[2023-05-27 08:30] LABS: Anion Gap 8 (5-15); BUN 66 mg/dL (7-18); BUN/Creat Ratio 11.8 RATIO (10-20); Calcium,Total 9.5 mg/dL (8.5-10.1); Chloride 102 mmol/L (98-107); Creatinine, Serum 5.57 mg/dL (0.55-1.02); EST Glomerular Filtration Rate 8 mL/min (>60); Est Glom Filt Rate - Afr Amer 9 mL/min (>60); Glucose 97 mg/dL (74-106); Potassium 4.1 mmol/L (3.5-5.1); Sodium Level 134 mmol/L (136-145)
[2023-05-27 09:05] VITALS: BP 152/54; PULSE 66; RESP 16; TEMP 36.8; O2SAT 99
[2023-05-27] MEDS: Aspirin 81 MG TAB.CHEW PO (09:06)
[2023-05-27] MEDS: amLODIPine 5 MG Tablet PO (09:06)
[2023-05-27] MEDS: Carvedilol 12.5 MG Tablet PO ×2 (09:06→22:47)
[2023-05-27] MEDS: Heparin Injection (Vial) 5,000 UNIT/ML VIAL 5000 UNIT SC ×2 (09:06→22:47)
[2023-05-27] MEDS: Isosorbide Mononitrate 30 MG Tablet PO (09:06)
--- NOTE | 2023-05-27 10:12 | PN.CARD_ITS ---
Subjective Subjective Patient seen and evaluated. Appears to be doing much better today. Objective Data Vital Signs: Vital Signs Temp Pulse Resp BP Pulse Ox O2 Del Method O2 Flow Rate 98.3 F 66 16 152/54 H 99 Room Air 2 05/27/23 09:05 05/27/23 09:05 05/27/23 09:05 05/27/23 09:05 05/27/23 09:05 05/27/23 09:05 05/25/23 17:15 FiO2 85 05/24/23 11:50 Oxygen Flow Rate (L/min) 2 Oxygen Delivery Method Room Air Weight: 128 lb 15.527 oz Body Mass Index (BMI) 25.2 Intake & Output: Intake and Output for Last 24 Hours 05/25/23 05/26/23 05/27/23 23:59 23:59 23:59 Intake Total 1171.31 / 1171.31 1596.25 / 1596.25 100 / 100 Output Total 1000 / 1000 500 / 500 Balance 171.31 / 171.31 1096.25 / 1096.25 100 / 100 Lab / Micro Data 05/27/23 07:23 05/27/23 07:23 Labs: Laboratory Results - last 24 hr 05/26/23 05:20: Hemoglobin A1c 4.8 05/27/23 07:23: WBC 10.6, RBC 3.37 L, Hgb 9.8 L, Hct 31.7 L, MCV 94.1, MCH 29.1, MCHC 30.9 L, RDW Std Deviation 53.2 H, RDW Coeff of Art 15.5 H, Plt Count 334, MPV 11.5, Immature Gran % (Auto) 0.300, Neut % (Auto) 50.6, Lymph % (Auto) 32.6, [place] % (Auto) 8.3, Eos % (Auto) 7.5 H, Baso % (Auto) 0.7, Absolute Neuts (auto) 5.4, Absolute Lymphs (auto) 3.45, Nucleated RBC % 0, Sodium 134 L, Potassium 4.1, Chloride 102, Carbon Dioxide 24.0, Anion Gap 8, BUN 66 H, Creatinine 5.57 H , Estim Creat Clear Calc 5.40, Est GFR (MDRD) Af Amer 9 L, Est GFR (MDRD) Non-Af 8 L, BUN/Creatinine Ratio 11.8, Glucose 97, Calcium 9.5 Cardiology Labs/Tests 05/26/23 05:20: Hemoglobin A1c 4.8 05/27/23 07:23: WBC 10.6, RBC 3.37 L, Hgb 9.8 L, Hct 31.7 L, MCV 94.1, MCH 29.1, MCHC 30.9 L, Plt Count 334, MPV 11.5, Immature Gran % (Auto) 0.300, Neut % (Auto) 50.6, Lymph % (Auto) 32.6, [place] % (Auto) 8.3, Eos % (Auto) 7.5 H, Baso % (Auto) 0.7, Absolute Neuts (auto) 5.4, Nucleated RBC % 0, Sodium 134 L, Potassium 4.1, Chloride 102, Carbon Dioxide 24.0, Anion Gap 8, BUN 66 H, Creatinine 5.57 H, Est GFR (MDRD) Af Amer 9 L, Est GFR (MDRD) Non-Af 8 L, BUN/Creatinine Ratio 11.8, Glucose 97, Calcium 9.5 Rhythm: EKG: ECHO: Stress Test: Cardiac Cath: PCI: CT Surgery: Holter monitor: EPS: PPM: CXR: Chest CT Scan: Physical Exam Const alert, oriented x3 and no apparent distress General Appearance: cooperative HEENT hearing grossly normal bilaterally Head and Scalp: atraumatic Eyes EOMs intact bilaterally Neck General: normal visual inspection Chest inspection of chest normal and palpation of chest normal Resp normal respiratory effort Auscultation: clear to auscultation bilaterally Cardio regular rate, regular rhythm, S1 normal heart sound and S2 normal heart sound Jugular Venous Distention: JVD GI normal to inspection, nondistended, normoactive bowel sounds Extremity normal capillary refill and no pedal edema Peripheral Pulses: Yes pulses 2+ throughout and femoral pulses present Skin no rashes or lesions noted Neuro oriented x3 and CN's II-XII intact bilaterally Psych Appearance: grossly normal and appropriate Assessment & Plan Assessment/Plan (1) CHF exacerbation: PLAN: She presented with an exacerbation of congestive heart failure [place] Heart Association class III. The above is likely secondary to severe hypertension though coronary disease cannot be completely excluded especially due to the fact that she does have segmental wall motion abnormalities noted on her echocardiogram which has an ejection fraction of approximately 40%. My recommendation will be to hold the Lasix at this time due to the severe increase in the creatinine * start oral isosorbide * May actually be able to tolerate low-dose IV fluids for 12 hours. (2) HTN (hypertension): PLAN: Her blood pressure was markedly elevated. * Will recommend carvedilol 12.5 mg twice a day * Amlodipine 10 mg a day (3) NSTEMI (non-ST elevation myocardial infarction): PLAN: She has a non-ST elevation myocardial infarction. She does have segmental wall motion abnormalities. Her renal function is compromised and at this time she does not want any invasive therapy. We will therefore continue to optimize her medical therapy. We will institute high intensity statin Baby aspirin
--- NOTE | 2023-05-27 11:11 | PN_ITS ---
Subjective Subjective Patient seen and examined. She had no complaints today and said she felt very well. She had an uneventful night. Shortness of breath has resolved. Review of systems is otherwise negative. Cr has trended upwards to 5.57 today. Objective Data Objective Data Vital Signs: Vital Signs Temp Pulse Resp BP Pulse Ox O2 Del Method O2 Flow Rate 98.3 F 66 16 152/54 H 99 Room Air 2 05/27/23 09:05 05/27/23 09:05 05/27/23 09:05 05/27/23 09:05 05/27/23 09:05 05/27/23 09:05 05/25/23 17:15 FiO2 85 05/24/23 11:50 Oxygen Flow Rate (L/min) 2 Oxygen Delivery Method Room Air Weight: 128 lb 15.527 oz Body Mass Index (BMI) 25.2 Intake & Output: Intake and Output for Last 24 Hours 05/25/23 05/26/23 05/27/23 23:59 23:59 23:59 Intake Total 1171.31 / 1171.31 1596.25 / 1596.25 100 / 100 Output Total 1000 / 1000 500 / 500 Balance 171.31 / 171.31 1096.25 / 1096.25 100 / 100 Lab / Micro Data 05/27/23 07:23 05/27/23 07:23 Labs: Laboratory Results - last 24 hr 05/26/23 05:20: Hemoglobin A1c 4.8 05/27/23 07:23: WBC 10.6, RBC 3.37 L, Hgb 9.8 L, Hct 31.7 L, MCV 94.1, MCH 29.1, MCHC 30.9 L, RDW Std Deviation 53.2 H, RDW Coeff of Art 15.5 H, Plt Count 334, MPV 11.5, Immature Gran % (Auto) 0.300, Neut % (Auto) 50.6, Lymph % (Auto) 32.6, [place] % (Auto) 8.3, Eos % (Auto) 7.5 H, Baso % (Auto) 0.7, Absolute Neuts (auto) 5.4, Absolute Lymphs (auto) 3.45, Nucleated RBC % 0, Sodium 134 L, Potassium 4.1, Chloride 102, Carbon Dioxide 24.0, Anion Gap 8, BUN 66 H, Creatinine 5.57 H , Estim Creat Clear Calc 5.40, Est GFR (MDRD) Af Amer 9 L, Est GFR (MDRD) Non-Af 8 L, BUN/Creatinine Ratio 11.8, Glucose 97, Calcium 9.5 Micro: Microbiology 05/24/23 09:30 Nasal Secretion SARS-CoV-2 & FLU Antigen (Rapid) - Final Physical Exam Const alert, oriented x3 and no apparent distress Constitutional Narrative: frail General Appearance: cooperative HEENT normocephalic, head/scalp atraumatic, moist oral mucous membranes and oropharynx normal Eyes PERRL and EOMs intact bilaterally Neck no lymphadenopathy and supple Lymph Lymphatic: no lymphadenopathy noted and no lymphedema noted Resp Resp Narrative: tachypneic, moderately diminished breath sounds bibasally, bilateral crackles. On room air. Cardio regular rate, regular rhythm, S1 normal heart sound, S2 normal heart sound and no murmurs Cardio Narrative: diminished breath sounds bibasally, mild crackles. GI normal to inspection, nondistended, normoactive bowel sounds, soft to palpation, non-tender and non-distended Extremity normal capillary refill, no clubbing, cyanosis or edema and no calf tenderness Skin General Skin Exam: no breakdown Neuro CN's II-XII intact bilaterally, no focal motor deficits, no sensory deficits noted and deep tendon reflexes 2+ bilaterally Motor Exam: strength 5/5 throughout and general weakness Psych thought process normal, cooperative and affect normal Appearance: appropriate Assessment & Plan Assessment/Plan (1) CHF exacerbation: PLAN: Plan #Acute heart failure with reduced EF * feels much better. * EKG showed ST depression in V4 V5 and V6. Chest x-ray showed evidence of heart failure. * BNP elevated at 625. * Initial troponin was only slightly elevated at 87 but trended up to a peak of 2017. * Cardiology on board. * now off nitroglycerin drip and heparin drip. * Fluid restriction to 1500 cc daily * 2D echo showed EF of 40% and stage 1 diastolic dysfunction and severe hypokinesia of the LV ventricular wall. * #Non-STEMI * Troponins peaked at 2017. 2D echo showed EF of 40% and stage 1 diastolic dysfunction and severe hypokinesia of the LV ventricular wall. * Give aspirin and high intensity statin. * lipid profile showed total cholesterol of 205, LDL of 129 and HDL of 46. A1C is 4.6 * Continue aspirin and high intensity statin as well as Plavix. * Cardiology on board. On carvedilol * #Hypertension * was admitted with hypertensive emergency * Resolved. Now on carvedilol and amlodipine. IV hydralazine as needed. * #ZULLY on CKD stage V. * Patient's creatinine is 3.84. Baseline is around 3.12 from December 2022. * Nephrology on board. * CR is up to 5.57 today. * lasix held. * nephrology on board. * DVT prophylaxis; on Sq heparin 5000 units q12 CODE STATUS: DNR CCA no intubation * Charges/Coding Visit Charges Inpatient E&M: 73173 Subs Hosp L3
[2023-05-27 14:17] VITALS: O2SAT 96
[2023-05-27 15:05] VITALS: BP 135/54; PULSE 62; RESP 18; TEMP 37; O2SAT 96
[2023-05-27 22:28] VITALS: BP 123/52; PULSE 63; RESP 18; TEMP 36.7; O2SAT 94
[2023-05-28 04:34] VITALS: BP 129/59; PULSE 62; RESP 16; TEMP 36.7; O2SAT 92
[2023-05-28 04:41] VITALS: BMI 25.4
[2023-05-28 06:04] LABS: Absolute Lymphocyte Count 3.62 X10^3/uL (0.83-4.51); Absolute Neutrophil Count 7.2 X10^3/uL (2.0-7.7); Basophil% 0.8 % (0-1); Eosinophil# 1.04 X10^3/uL; Eosinophils% 7.9 % (0-5); Hematocrit 30.8 % (37-47); Hemoglobin 9.3 g/dL (12.0-15.0); Lymphocyte # 3.62 X10^3/ul (0.83-4.51); Lymphocyte % 27.5 % (19-41); Mean Corp Hgb Conc 30.2 g/dL (32-36); Mean Corpuscular Hgb 28.2 pg (27.0-32.0); Mean Corpuscular Volume 93.3 fL (81-99); Mean Platelet Vol. 12.2 fl (6.2-12.0); Monocyte# 1.12 X10^3/uL; Monocyte% 8.5 % (0-10); NRBC Flagged by Analyzer 0 % (0-5); Neutrophil # 7.24 X10^3/uL (2.7-7.7); Neutrophil % 54.8 % (47-70); Platelet Count 317 K/mm3 (150-450); RBC Distribution Width CV 15.6 % (11.6-14.6); RBC Distribution Width SD 53.7 fl (35.1-43.9); White Blood Count 13.2 K/mm3 (4.4-11.0)
[2023-05-28 07:30] LABS: Anion Gap 9 (5-15); BUN 68 mg/dL (7-18); BUN/Creat Ratio 12.5 RATIO (10-20); Calcium,Total 9.3 mg/dL (8.5-10.1); Chloride 105 mmol/L (98-107); Creatinine, Serum 5.46 mg/dL (0.55-1.02); EST Glomerular Filtration Rate 8 mL/min (>60); Est Glom Filt Rate - Afr Amer 10 mL/min (>60); Estimated Creatinine Clearance 5.51 ml/min; Glucose 97 mg/dL (74-106); Potassium 4.3 mmol/L (3.5-5.1); Sodium Level 135 mmol/L (136-145)
[2023-05-28 07:38] VITALS: O2SAT 95
[2023-05-28 09:16] VITALS: BP 142/55; PULSE 61; RESP 16; TEMP 36.7; O2SAT 98
[2023-05-28] MEDS: Isosorbide Mononitrate 30 MG Tablet PO (09:18)
[2023-05-28] MEDS: Heparin Injection (Vial) 5,000 UNIT/ML VIAL 5000 UNIT SC (09:18)
[2023-05-28] MEDS: amLODIPine 5 MG Tablet PO (09:18)
[2023-05-28] MEDS: Aspirin 81 MG TAB.CHEW PO (09:18)
[2023-05-28] MEDS: Carvedilol 12.5 MG Tablet PO (09:18)
--- NOTE | 2023-05-28 12:15 | DS.PCM_ITS ---
Providers Date of Admission: 05/24/23 Date of Discharge: 05/28/23 Primary Care Physician: MARCIANO Guerrero Consultations 05/24/23 12:41 Consult: Cardiology Routine Consulting Provider: Gideon Henriquez Reason for Consult: acute heart failure, EF unknown EMERGENT Consult: No Notified: Yes Date Notified: 05/24/23 Time Notified: 12:00 Method of Notification: Verbal Consult: Nephrology Routine Consulting Provider: Gustavo Ricci Reason for Consult: CKD 5 EMERGENT Consult: No Notified: Yes Date Notified: 05/24/23 Time Notified: 12:00 Method of Notification: Text Reason For Visit: ACUTE HEART FAILURE Diagnosis Discharge Diagnosis (1) CHF exacerbation: Status: Chronic Code(s): I50.9 - Heart failure, unspecified Plan #Acute heart failure with reduced EF * feels much better. * EKG showed ST depression in V4 V5 and V6. Chest x-ray showed evidence of heart failure. * BNP elevated at 625. * Initial troponin was only slightly elevated at 87 but trended up to a peak of 2017. * Cardiology on board. * now off nitroglycerin drip and heparin drip. * Fluid restriction to 1500 cc daily * 2D echo showed EF of 40% and stage 1 diastolic dysfunction and severe hypokinesia of the LV ventricular wall. * #Non-STEMI * Troponins peaked at 2017. 2D echo showed EF of 40% and stage 1 diastolic dysfunction and severe hypokinesia of the LV ventricular wall. * Give aspirin and high intensity statin. * lipid profile showed total cholesterol of 205, LDL of 129 and HDL of 46. A1C is 4.6 * Continue aspirin and high intensity statin as well as Plavix. * Cardiology on board. On carvedilol * #Hypertension * was admitted with hypertensive emergency * Resolved. Now on carvedilol and amlodipine. IV hydralazine as needed. * #ZULLY on CKD stage V. * Patient's creatinine is 3.84. Baseline is around 3.12 from December 2022. * Nephrology on board. * CR is up to 5.57 today. * lasix held. * nephrology on board. * DVT prophylaxis; on Sq heparin 5000 units q12 CODE STATUS: DNR CCA no intubation * Medications at Discharge Home Medications allopurinol 100 mg tablet 100 mg PO BID gout 05/24/23 cholecalciferol (vitamin D3) 125 mcg (5,000 unit) tablet 125 mcg PO DAILY vitamin 05/25/23 meclizine 25 mg tablet 25 mg PO TID vertigo 05/25/23 amlodipine 5 mg tablet 5 mg PO DAILY #30 tabs 05/28/23 aspirin 81 mg chewable tablet 81 mg PO BREAKFAST #30 tabs 05/28/23 atorvastatin 40 mg tablet 40 mg PO QHS #30 tabs 05/28/23 carvedilol 12.5 mg tablet 12.5 mg PO BID #60 tabs 05/28/23 furosemide 40 mg tablet 40 mg PO DAILY #30 tabs 05/28/23 isosorbide mononitrate 30 mg tablet,extended release 24 hr 30 mg PO DAILY #30 tabs 05/28/23 Hospital Course Operations None Summary of Care Provided Minutes Spent on Discharge: 55 Hospital Course: FUNMI INGRAM, is a 83 with a PMH as outlined who presents via the ED on 05/24/2023 with a complaint of shortness of breath which had started on the day of admission. She had had some nasal congestion, but wasnt really short of breath until the morning when she got short of breath. She also complained of some chest pressure. She denied any dizziness, lightheadedness, palpitations, nausea, vomiting or any other symptoms. REview of systems is otherwise negative. She denies any recent history of long distance travel, any history of heart failure or PE. Vitals in [facility] ED were temp of 97.5F, MS of 115, RR of 26 and BP of 126/108/ She was saturating at 93% on 3L of oxygen. CBC showed wbc of 17.3, Hb of 11.1, platelets of 452; D dimer was 0.59. Chemistry showed sodium of 137, potassium of 4.2 and Cr of 3.84. BNP was 625. COVID and influenza tests were negative and chest x-ray showed evidence of CHF with blunting of the right costophrenic angle and right basilar atelectasis with mild cardiomegaly. She was admitted to be managed for hypoxia due to acute heart failure with unknown EF. She was started on diuresis with IV Lasix. Patient's heart rate subsequently went up was significantly and her blood pressures went up to 200 systolic. She was therefore started on nitro drip per cardiology recommendations. Cardiology was consulted. His symptoms gradually improved and she felt better. Diuresis was continued. She had 2D echo which showed EF of 40% and stage I diastolic dysfunction as well as severe hypokinesis of the left ventricular wall. She was also managed for non-STEMI as her troponins peaked at 2017. She was placed on aspirin and high intensity statin. She was also placed on heparin drip. She was subsequently transition of the nitro drip and started on carvedilol. Patient's creatinine was noted to trend upwards and peaked at 5.57. Nephrology was consulted and plan was for conservative management as patient was not willing to entertain the thought of dialysis. Patient's symptoms improved and she felt much better. Creatinine trended down slightly to 5.47. Patient was still making urine. In light of him not willing to consider dialysis, nephrology recommended conservative management. On 05/28/2023, I did discuss with the java sdet Dr. Ricci about further plans with patient. He stated that patient could go home on 40 mg daily of Lasix and she is to follow-up with nephrology on outpatient basis. Patient was discharged on p.o. aspirin and high intensity statin as well as carvedilol. She was discharged on p.o. 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 Her home Cardizem and hydralazine were discontinued and she was placed on p.o. amlodipine 5 mg daily, carvedilol 12.5 mg twice daily and Imdur 30 mg daily as well as to p.o. Lasix 40 mg daily and high intensity statin 40 mg nightly. Patient seen and examined prior to discharge. She felt much better and wanted to go home. She had no active complaints and had an uneventful night. Review of systems otherwise negative. Labs and vitals reviewed. Home medication reviewed and reconciled. Physical Exam Const alert, oriented x3 and no apparent distress Constitutional Narrative: frail General Appearance: cooperative and comfortable HEENT normocephalic, head/scalp atraumatic, hearing grossly normal bilaterally, moist oral mucous membranes and oropharynx normal Mouth: oral and palatal mucosa normal Eyes PERRL and EOMs intact bilaterally Neck no lymphadenopathy and supple Lymph Lymphatic: no lymphadenopathy noted and no lymphedema noted Resp Resp Narrative: tachypneic, moderately diminished breath sounds bibasally, bilateral crackles. On room air. Cardio regular rate, regular rhythm, S1 normal heart sound, S2 normal heart sound and no murmurs Cardio Narrative: diminished breath sounds bibasally, mild crackles. GI normal to inspection, nondistended, normoactive bowel sounds, soft to palpation, non-tender and non-distended Extremity normal to inspection, full ROM, normal capillary refill, no clubbing, cyanosis or edema and no calf tenderness Skin General Skin Exam: no breakdown Neuro oriented x3, CN's II-XII intact bilaterally, moves all extremities, no focal motor deficits, no sensory deficits noted and deep tendon reflexes 2+ bilaterally Sensorium / Orientation: awake Motor Exam: strength 5/5 throughout and general weakness Psych thought process normal, cooperative and affect normal Appearance: appropriate Weight / BMI Weight Weight: 130 lb 8.218 oz Body Mass Index (BMI) 25.4 ABG / Lab / Microbiology Data 05/28/23 05:28 05/28/23 05:28 Laboratory: Laboratory Results - last 24 hr 05/28/23 05:28: WBC 13.2 H, RBC 3.30 L, Hgb 9.3 L, Hct 30.8 L, MCV 93.3, MCH 28.2, MCHC 30.2 L, RDW Std Deviation 53.7 H, RDW Coeff of Art 15.6 H, Plt Count 317, MPV 12.2 H, Immature Gran % (Auto) 0.500, Neut % (Auto) 54.8, Lymph % (Auto) 27.5, [place] % (Auto) 8.5, Eos % (Auto) 7.9 H, Baso % (Auto) 0.8, Absolute Neuts (auto) 7.2, Absolute Lymphs (auto) 3.62, Nucleated RBC % 0, Sodium 135 L, Potassium 4.3, Chloride 105, Carbon Dioxide 21.0, Anion Gap 9, BUN 68 H, Creatinine 5.46 H, Estim Creat Clear Calc 5.51, Est GFR (MDRD) Af Amer 10 L, Est GFR (MDRD) Non-Af 8 L, BUN/Creatinine Ratio 12.5, Glucose 97, Calcium 9.3 Microbiology: Microbiology 05/24/23 09:30 Nasal Secretion SARS-CoV-2 & FLU Antigen (Rapid) - Final D/C Instructions Discharge Diet: Low fat / Low cholesterol Discharge Activity: Return to Normal Activity Weight Bearing Status: Weight bearing as tolerated Meaningful Use Info Meaningful Use Diagnoses (Choose all that apply): AMI and CHF AMI/Post PCI/Angioplasty Aspirin given w/in 24hrs of arrival?: Yes ASA at discharge?: Yes Antiplatelet Therapy at Discharge:: Yes Statins at discharge?: Yes Praveen/ARB at discharge?: No Reason Praveen/ARB not ordered:: Worsening renal dysfunctn Beta Estevan at discharge?: Yes Done w/ Acute AK measure.: Yes Documented LVEF (%): 40 CHF PRAVEEN/ARB ordered at discharge?: No Reason PRAVEEN/ARB not ordered?: Worsening renal disease Documented LVEF (%): 40 Discharge Plan Admission Admit Date/Time: 05/24/23 10:51 Primary Reason for Your Visit: heart failure, Heart attack Attending Provider: Josephine Escobar Primary Care Provider: Jodi Felix Consulting Providers: Gideon Henriquez; Gustavo Ricci Instructions Patient Instructions: Coping with Heart Failure, Heart Attack Meds Discharge Orders/Prescriptions Prescriptions: New furosemide 40 mg Tablet 40 mg PO DAILY Qty: 30 2RF atorvastatin 40 mg Tablet 40 mg PO QHS Qty: 30 2RF carvedilol 12.5 mg Tablet 12.5 mg PO BID Qty: 60 2RF isosorbide mononitrate 30 mg Tablet Extended Release 24 Hr 30 mg PO DAILY Qty: 30 2RF amlodipine 5 mg Tablet 5 mg PO DAILY Qty: 30 2RF aspirin 81 mg Tablet,Chewable 81 mg PO BREAKFAST Qty: 30 2RF Continued allopurinol 100 mg tablet 100 mg PO BID meclizine 25 mg tablet 25 mg PO TID cholecalciferol (vitamin D3) 125 mcg (5,000 unit) tablet 125 mcg PO DAILY Discontinued diltiazem HCl [Cartia XT] 240 mg capsule,extended release 24hr 240 mg PO DAILY hydralazine 25 mg tablet 25 mg PO DAILY Referrals / Follow Up: Gideon Henriquez MD [Med Staff - Active Staff] - Within 2 Weeks Gustavo Ricci MD [Med Staff - Consulting] - Within 1 Week Jodi Felix NP-C [Primary Care Provider] - Within 1 Week Disposition Disposition (needs filled in before D/C Order can be placed): Home, Self Care Charges/Coding Visit Charges Inpatient E&M: 74293 Disch Hosp >30min
[2023-05-28 12:30] VITALS: O2SAT 93; O2SAT 95
[2023-05-28 12:59] VITALS: BP 133/64; PULSE 60; RESP 16; TEMP 36.7; O2SAT 94
== END 2023-05-28 13:31 | disposition home or self-care (01) | DRG 280 ==
LOC: ED 10:29 → PCU 11:06
PROVIDERS: Nurse Practitioner Adult Health; Admitting Provider Student in an Organized Health Care Education/Training Program; Emergency Provider Emergency Medicine; PCP Nurse Practitioner Family; Visit Provider Student in an Organized Health Care Education/Training Program
DX: I21.4 Non-ST elevation (NSTEMI) myocardial infarction (principal); I50.21 Acute systolic (congestive) heart failure; N17.9 Acute kidney failure, unspecified; I13.2 Hypertensive heart and chronic kidney disease with heart failure and with stage 5 chronic kidney disease, or end stage renal disease; N18.5 Chronic kidney disease, stage 5; I16.1 Hypertensive emergency; M10.9 Gout, unspecified; R80.9 Proteinuria, unspecified; Z66 Do not resuscitate; Z79.899 Other long term (current) drug therapy
CPT/HCPCS: 36415; 71045; 80048; 80076; 83036; 83735; 83880; 84484; 85025; 85379; 85610; 85730; 87428; 93005; 93306; 94002; 97110; 97116; 97162; 97166; 97530; 97535; 99252; 99285; J7030; A4216; G0463; J1940

== ENCOUNTER → 2023-06-13 | Outpatient (CLI) | payer MEDICARE, SELFPAY ==
[2023-06-13 12:26] LABS: Absolute Lymphocyte Count 2.03 X10^3/uL (0.83-4.51); Absolute Neutrophil Count 6.2 X10^3/uL (2.0-7.7); Basophil# 0.09 X10^3/uL; Basophil% 0.9 % (0-1); Eosinophil# 0.45 X10^3/uL; Eosinophils% 4.7 % (0-5); Hematocrit 32.4 % (37-47); Hemoglobin 10.1 g/dL (12.0-15.0); Lymphocyte # 2.03 X10^3/ul (0.83-4.51); Lymphocyte % 21.1 % (19-41); Mean Corp Hgb Conc 31.2 g/dL (32-36); Mean Corpuscular Hgb 28.6 pg (27.0-32.0); Mean Corpuscular Volume 91.8 fL (81-99); Mean Platelet Vol. 13.1 fl (6.2-12.0); Monocyte% 8.3 % (0-10); NRBC Flagged by Analyzer 0 % (0-5); Neutrophil # 6.22 X10^3/uL (2.7-7.7); Neutrophil % 64.5 % (47-70); Platelet Count 315 K/mm3 (150-450); RBC Distribution Width CV 14.6 % (11.6-14.6); Red Blood Count 3.53 M/mm3 (4.2-5.4); White Blood Count 9.6 K/mm3 (4.4-11.0)
[2023-06-13 13:02] LABS: Anion Gap 8 (5-15); BUN 89 mg/dL (7-18); BUN/Creat Ratio 14.5 RATIO (10-20); Calcium,Total 9.5 mg/dL (8.5-10.1); Chloride 98 mmol/L (98-107); Creatinine, Serum 6.13 mg/dL (0.55-1.02); EST Glomerular Filtration Rate 7 mL/min (>60); Est Glom Filt Rate - Afr Amer 8 mL/min (>60); Glucose 110 mg/dL (74-106); Potassium 5.1 mmol/L (3.5-5.1); Sodium Level 128 mmol/L (136-145); Thyroid Stim Hormone (TSH) 7.39 uIU/mL (0.358-3.74)
== END | disposition home or self-care (01) ==
LOC: LAB 11:04
PROVIDERS: PCP Nurse Practitioner Family; Referring Provider Nurse Practitioner Gerontology; Visit Provider Nurse Practitioner Gerontology
DX: R53.83 Other fatigue (principal)
CPT/HCPCS: 36415; 80048; 84443; 85025

== ENCOUNTER → 2023-06-21 | Outpatient (CLI) | payer MEDICARE, SELFPAY ==
[2023-06-21 15:03] LABS: Anion Gap 6 (5-15); BUN 68 mg/dL (7-18); BUN/Creat Ratio 13.8 RATIO (10-20); Calcium,Total 10.4 mg/dL (8.5-10.1); Chloride 105 mmol/L (98-107); Creatinine, Serum 4.94 mg/dL (0.55-1.02); EST Glomerular Filtration Rate 9 mL/min (>60); Est Glom Filt Rate - Afr Amer 11 mL/min (>60); Glucose 112 mg/dL (74-106); Potassium 5.6 mmol/L (3.5-5.1); Sodium Level 136 mmol/L (136-145)
== END | disposition home or self-care (01) ==
LOC: LAB 13:34
PROVIDERS: PCP Nurse Practitioner Family; Visit Provider Nurse Practitioner Gerontology
DX: I12.9 Hypertensive chronic kidney disease with stage 1 through stage 4 chronic kidney disease, or unspecified chronic kidney disease (principal); N18.4 Chronic kidney disease, stage 4 (severe)
CPT/HCPCS: 36415; 80048

== ENCOUNTER → 2023-06-27 | Outpatient (CLI) | payer MEDICARE, SELFPAY ==
[2023-06-27 12:40] LABS: Anion Gap 5 (5-15); BUN 69 mg/dL (7-18); BUN/Creat Ratio 13.9 RATIO (10-20); Calcium,Total 10.2 mg/dL (8.5-10.1); Chloride 106 mmol/L (98-107); Creatinine, Serum 4.96 mg/dL (0.55-1.02); EST Glomerular Filtration Rate 9 mL/min (>60); Est Glom Filt Rate - Afr Amer 11 mL/min (>60); Glucose 112 mg/dL (74-106); Potassium 4.7 mmol/L (3.5-5.1); Sodium Level 137 mmol/L (136-145)
== END | disposition home or self-care (01) ==
LOC: LAB 11:32
PROVIDERS: PCP Nurse Practitioner Family; Referring Provider Nurse Practitioner Gerontology; Visit Provider Nurse Practitioner Gerontology
DX: E87.5 Hyperkalemia (principal)
CPT/HCPCS: 36415; 80048

== ENCOUNTER → 2023-09-13 | Outpatient (CLI) | payer MEDICARE, SELFPAY ==
[2023-09-13 10:34] LABS: AST(SGOT) 6 U/L (15-37); Alanine Aminotransfer ALT/SGPT 14 U/L (13-56); Albumin, Serum 3.8 g/dL (3.2-5.0); Alkaline Phosphatase 76 U/L (45-117); Bilirubin, Direct 0.11 mg/dL (0.00-0.30); Cholesterol 236 mg/dL (200); Globulin 3.6 g/dL (2.2-4.2); High Density Lipoprotein 42 mg/dL; Protein, Total 7.4 g/dL (6.4-8.2); Triglycerides 174 mg/dL; Very Low Density Lipoprotein 35 mg/dL (5-40)
[2023-09-15 14:07] LABS: T4 Free Direct 0.85 ng/dL (0.76-1.46); Thyroid Stim Hormone (TSH) 6.46 uIU/mL (0.358-3.74)
== END | disposition home or self-care (01) ==
PROVIDERS: PCP Nurse Practitioner Family; Referring Provider Nurse Practitioner Gerontology; Visit Provider Nurse Practitioner Gerontology
DX: E03.9 Hypothyroidism, unspecified (principal); I21.4 Non-ST elevation (NSTEMI) myocardial infarction
CPT/HCPCS: 36415; 80061; 80076; 84439; 84443

== ENCOUNTER 2023-09-19 16:46 | Inpatient (IN) | payer MEDICARE, SELFPAY ==
[2023-09-19] VITALS (13 sets, daily range): BP systolic 151–175; BP diastolic 61–94; PULSE 72–90; RESP 16–24; TEMP 36.3–37.2; O2SAT 86–97; BMI 26.1; BMI 26.0
--- NOTE | 2023-09-19 17:14 | RAD_ITS ---
STUDY: X-RAY CHEST REASON FOR EXAM: Female, 83 years old. SOB TECHNIQUE: Single AP portable view of the chest. COMPARISON: 05/24/2023. FINDINGS: Normal lung volumes. Bilateral hazy increased pulmonary density worse on the left. Findings are suggestive of central pulmonary edema, patchy atelectasis or perihilar infiltrate. Contrast CT scan recommended for better evaluation. No gross effusions. There is mild cardiac enlargement. Normal mediastinum and zac. Normal visualized pulmonary arteries. Normal visualized aortic arch and descending thoracic aorta. Normal visualized thoracic spine. Normal visualized ribs, clavicles, and shoulders. There is no demonstrated abnormality of the visualized soft tissue structures of the upper abdomen. RAD/Chest 1 View (Portable) IMPRESSION: Bilateral perihilar pulmonary opacities worse on the left with considerations as above. CT with contrast recommended. Electronically Signed: Fercho Gillespie MD at 17:37 EST ,
[2023-09-19 17:31] LABS: Absolute Lymphocyte Count 3.19 X10^3/uL (0.83-4.51); Absolute Neutrophil Count 15.8 X10^3/uL (2.0-7.7); Basophil# 0.15 X10^3/uL; Basophil% 0.7 % (0-1); Eosinophil# 1.01 X10^3/uL; Eosinophils% 4.7 % (0-5); Hematocrit 35.7 % (37-47); Hemoglobin 10.7 g/dL (12.0-15.0); Lymphocyte # 3.19 X10^3/ul (0.83-4.51); Lymphocyte % 14.8 % (19-41); Mean Corpuscular Hgb 27.7 pg (27.0-32.0); Mean Corpuscular Volume 92.5 fL (81-99); Mean Platelet Vol. 11.5 fl (6.2-12.0); Monocyte# 1.24 X10^3/uL; Monocyte% 5.8 % (0-10); NRBC Flagged by Analyzer 0 % (0-5); Neutrophil # 15.84 X10^3/uL (2.7-7.7); Neutrophil % 73.5 % (47-70); Platelet Count 371 K/mm3 (150-450); RBC Distribution Width CV 17.2 % (11.6-14.6); RBC Distribution Width SD 58.3 fl (35.1-43.9); Red Blood Count 3.86 M/mm3 (4.2-5.4); White Blood Count 21.5 K/mm3 (4.4-11.0)
[2023-09-19 17:50] LABS: Anion Gap 7 (5-15); BUN 70 mg/dL (7-18); BUN/Creat Ratio 15.9 RATIO (10-20); Calcium,Total 10.5 mg/dL (8.5-10.1); Chloride 111 mmol/L (98-107); Creatinine, Serum 4.39 mg/dL (0.55-1.02); EST Glomerular Filtration Rate 10 mL/min (>60); Est Glom Filt Rate - Afr Amer 12 mL/min (>60); Glucose 135 mg/dL (74-106); Sodium Level 138 mmol/L (136-145); Troponin-I HS 28 pg/mL (3.0-54.0)
--- OUTSIDE RECORDS SUMMARY | 2023-09-19 17:59 | XMS RPT_ITS | CCD ---
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 Narrative 07-06-2005 Note Date & Type Note Facility documented as of this encounter (statuses as of 06/06/2023) [facility] Evaluation note Note Date & Type Note Facility documented in this encounter [facility] Summary Purpose Family History No Family History Records Found Advance Directives No Advanced Directives Records Found Additional Source Comments Source Comments (unrecognize d section and content) In the event this informatio n is protected by the Federal Confidentiality of Alcohol and Drug Abuse Patient Records regulations: The Federal rules restrict any use of the information to criminally investigate or prosecute any alcohol or drug abuse patient.[facility] the event this information is protected by the Federal Confidentiality of Alcohol and Drug Abuse Patient Records regulations: The Federal rules restrict any use of the information to criminally investigate or prosecute any alcohol or drug abuse patient.[facility] Reason for Visit (unrecogniz ed section and content) Reason Comments Results INFORMATION SOURCE (unrecogn ized section and content) FOR RECORDS PERTAINING TO PATIENTS WHO ARE OR HAVE BEEN ENROLLED IN A CHEMICAL DEPENDENCY/SUBSTANCEABUSE PROGRAM, SOME INFORMATION MAY BE OMITTED. This clinical summary was aggregated from multiple sources. Caution should be exercised in using it in the provision of clinical care. This summary normalizes information from multiple sources, and as a consequence, information in this document may materially change the coding, format and clinical context of patient data. In addition, data may be omitted in some cases. CLINICAL DECISIONS SHOULD BE BASED ON THE PRIMARY CLINICAL RECORDS. [employer] [facility]. provides no warranty or guarantee of the accuracy or completeness of information in this document.
[2023-09-19 18:00] LABS: D-Dimer Quantitative (DVT/PE) < 0.27 FEU/ug/m (0.27-0.49)
--- NOTE | 2023-09-19 18:07 | EDS_ITS ---
HPI <MARCIANO Quinones - Last Filed: 09/19/23 20:01> History of Present Illness Chief Complaint: Shortness of Breath Narrative Narrative: Patient is an 83-year-old female with history of CHF, stage IV kidney disease, heart failure with reduced ejection fraction heart murmur who presents to the emergency department for sudden onset of shortness of breath. The patient states that she woke up fine this morning, took a nap after eating. Woke up, she felt extremely short of breath, called EMS, patient's pulse ox was in the 80s. Patient states she had something similar a year ago, she is here for evaluation. [facility] <MARCIANO Quinones - Last Filed: 09/19/23 20:01> [facility] Medical History (Updated 09/19/23 @ 21:22 by Christina Prasad) ZULLY (acute kidney injury) CHF exacerbation CKD stage 4 secondary to hypertension Gout Heart murmur HTN (hypertension) Hypothyroid Kidney failure NSTEMI (non-ST elevation myocardial infarction) Vitamin D deficiency Home Medications aspirin 81 mg chewable tablet 81 mg PO BREAKFAST HEART HEALTH #30 tabs 05/28/23 [Rx Last Taken 09/19/23] carvedilol 6.25 mg tablet 6.25 mg PO BID HEART #180 tabs 06/13/23 [Rx Last Taken 09/19/23] furosemide 40 mg tablet 20 mg (1/2 x 40 mg) PO DAILY EDEMA #30 tabs 06/13/23 [Rx Last Taken 09/19/23] isosorbide mononitrate 30 mg tablet,extended release 24 hr 30 mg PO DAILY CHEST PAIN #90 tabs 06/13/23 [Rx Last Taken 09/19/23] amlodipine 5 mg tablet 5 mg PO DAILY BLOOD PRESSURE #90 tabs 08/25/23 [Rx Last Taken 09/19/23] acetaminophen 325 mg tablet (Non-Aspirin) 325 mg PO Q6H PRN PAIN 09/19/23 [History Last Taken 09/18/23] allopurinol 100 mg tablet 100 mg PO DAILY GOUT 09/19/23 [History Last Taken 09/19/23] ceramides 1,3,6-II (CeraVe topical cream) 1 applic topical DAILY PRN DRY SKIN 09/19/23 [History Last Taken Unknown] cholecalciferol (vitamin D3) 25 mcg (1,000 unit) tablet 25 mcg PO DAILY SUPPLEMENT 09/19/23 [History Last Taken 09/19/23] Allergy/AdvReac Type Severity Reaction Status Date / Time ezetimibe [From Zetia] Allergy Mild Itching Verified 09/19/23 16:51 prednisone Allergy Mild Hives Verified 09/19/23 16:51 levothyroxine AdvReac Intermediate Diarrhea Verified 09/19/23 18:37 morphine AdvReac Mild Vomiting Verified 09/19/23 16:51 Social History (Updated 09/19/23 @ 20:[address] Rose Melendez, DO) household members: none housing: house Smoking Status: Never smoker alcohol intake: never substance use type: does not use additional social history: Ambulates independently without the use of assistive device ROS <MARCIANO Quinones - Last Filed: 09/19/23 20:01> ROS ED ROS Narrative Constitutional: Negative for fever, chills, weight loss, weakness Eyes: Negative for vision loss, vision change, double vision ENT: Negative for any sore throat, ear pain, congestion Cardiovascular: Negative for any chest pain, tightness, palpitations Respiratory: Negative for any cough, sputum production, hemoptysis. Positive dyspnea, dyspnea on exertion, orthopnea Gastrointestinal: Negative for any abdominal pain, nausea, vomiting, diarrhea, constipation, blood in stool, blood in vomit : Negative for any urinary frequency, dysuria, retention, blood in urine Muscle skeletal: Negative for any myalgias, arthralgias, neck pain, back pain Neurological: Negative for any headache, syncope, paresthesias, dizziness Skin: Negative for any rashes, lumps, itching, abrasions, lacerations Psychiatric: Negative for any depression, anxiety, stress, suicidal ideation, homicidal ideation Hematologic: Negative for any easy bruising, excessive bruising, easy bleeding Allergies: Negative for any eczema, hives, rash EXAM <MARCIANO Quinones - Last Filed: 09/19/23 20:01> Physical Exam Narrative Exam Narrative: Vital signs reviewed. Patient was 86% on room air, patient tolerating 3 to 4 L well. HEET: Head normocephalic atraumatic, TMs clear bilaterally. Posterior pharynx is clear, moist mucous membranes. Nares clear bilaterally. Neck: Supple with no lymphadenopathy or tenderness. No signs of meningismus. Cardiac: Regular rate and rhythm no murmurs gallops or rubs, equal peripheral pulses bilaterally. Respiratory: Patient crackles bilaterally, worse on the left.. No chest tenderness. Abdomen: Soft, nontender, nondistended. No abdominal bruit or pulsatile masses. No hepatosplenomegaly Extremities: +1 pitting edema, no signs of gross trauma or deformity. Active full range of motion of all extremities. Neuro: Cranial nerves II through XII intact, no focal neurological deficits. Skin: Clean dry and intact with no rash, purpura, petechiae, vesicles or pustules. Backs/flank: No CVA tenderness, no midline spinal tenderness, no deformity. Psych: Normal mood and affect. No SI, HI or acute psychosis. Const Vital Signs: 09/19/23 16:47 09/19/23 16:51 09/19/23 17:30 Temperature 97.4 F L Temperature Source Temporal Pulse Rate 88 Respiratory Rate 16 Respiratory Effort Blood Pressure 174/71 H Blood Pressure Mean 105 Pulse Ox 86 92 97 Oxygen Delivery Method Room Air Nasal Cannula Nasal Cannula Oxygen Flow Rate (L/min) 4 3 09/19/23 17:30 09/19/23 17:31 09/19/23 17:44 Temperature Temperature Source Pulse Rate Respiratory Rate Respiratory Effort Short of Breath Labored Blood Pressure Blood Pressure Mean Pulse Ox 97 90 Oxygen Delivery Method Nasal Cannula Nasal Cannula Nasal Cannula Oxygen Flow Rate (L/min) 3 3 2 09/19/23 17:59 09/19/23 18:41 09/19/23 18:42 Temperature 99 F Temperature Source Temporal Pulse Rate 83 77 77 Respiratory Rate 19 H 17 17 Respiratory Effort Blood Pressure 171/68 H 159/64 H 159/94 H Blood Pressure Mean 102 95 115 Pulse Ox 97 96 96 Oxygen Delivery Method Nasal Cannula Nasal Cannula Nasal Cannula Oxygen Flow Rate (L/min) 3 3 3 09/19/23 19:09 Temperature Temperature Source Pulse Rate 90 Respiratory Rate 24 H Respiratory Effort Blood Pressure 157/68 H Blood Pressure Mean 97 Pulse Ox Oxygen Delivery Method Nasal Cannula Oxygen Flow Rate (L/min) 3 <Dr. Baldemar Brennan, DO - Last Filed: 09/19/23 23:20> Physical Exam Const Vital Signs: 09/19/23 16:47 09/19/23 16:51 09/19/23 17:30 Temperature 97.4 F L Temperature Source Temporal Pulse Rate 88 Respiratory Rate 16 Respiratory Effort Blood Pressure 174/71 H Blood Pressure Mean 105 Pulse Ox 86 92 97 Oxygen Delivery Method Room Air Nasal Cannula Nasal Cannula Oxygen Flow Rate (L/min) 4 3 09/19/23 17:30 09/19/23 17:31 09/19/23 17:44 Temperature Temperature Source Pulse Rate Respiratory Rate Respiratory Effort Short of Breath Labored Blood Pressure Blood Pressure Mean Pulse Ox 97 90 Oxygen Delivery Method Nasal Cannula Nasal Cannula Nasal Cannula Oxygen Flow Rate (L/min) 3 3 2 09/19/23 17:59 09/19/23 18:41 09/19/23 18:42 Temperature 99 F Temperature Source Temporal Pulse Rate 83 77 77 Respiratory Rate 19 H 17 17 Respiratory Effort Blood Pressure 171/68 H 159/64 H 159/94 H Blood Pressure Mean 102 95 115 Pulse Ox 97 96 96 Oxygen Delivery Method Nasal Cannula Nasal Cannula Nasal Cannula Oxygen Flow Rate (L/min) 3 3 3 09/19/23 19:09 Temperature Temperature Source Pulse Rate 90 Respiratory Rate 24 H Respiratory Effort Blood Pressure 157/68 H Blood Pressure Mean 97 Pulse Ox Oxygen Delivery Method Nasal Cannula Oxygen Flow Rate (L/min) 3 [facility] <MARCIANO Quinones - Last Filed: 09/19/23 20:01> [facility] Lab Data Labs: Laboratory Results - last 24 hr 09/19/23 09/19/23 09/19/23 17:25 17:50 18:30 WBC 21.5 H RBC 3.86 L Hgb 10.7 L Hct 35.7 L MCV 92.5 MCH 27.7 MCHC 30.0 L RDW Std Deviation 58.3 H RDW Coeff of Art 17.2 H Plt Count 371 MPV 11.5 Immature Gran % (Auto) 0.500 Neut % (Auto) 73.5 H Lymph % (Auto) 14.8 L Smith % (Auto) 5.8 Eos % (Auto) 4.7 Baso % (Auto) 0.7 Absolute Neuts (auto) 15.8 H Absolute Lymphs (auto) 3.19 Nucleated RBC % 0 D-Dimer Quant (PE/DVT) < 0.27 L Sodium 138 Potassium 5.0 Chloride 111 H Carbon Dioxide 20.0 L Anion Gap 7 BUN 70 H Creatinine 4.39 H Est GFR (MDRD) Af Amer 12 L Est GFR (MDRD) Non-Af 10 L BUN/Creatinine Ratio 15.9 Glucose 135 H Lactic Acid 1.1 Calcium 10.5 H Troponin I High Sens 28 B-Natriuretic Peptide 916.5 H Procalcitonin 0.27 H Urine Color Urine Clarity Urine pH Ur Specific [place] Urine Protein Urine Glucose (UA) Urine Ketones Urine Occult Blood Urine Nitrite Urine Bilirubin Urine Urobilinogen Ur Leukocyte Esterase Urine RBC Urine WBC Ur Squamous Epith Cells Urine Bacteria Urine Mucus 09/19/23 19:16 WBC RBC Hgb Hct MCV MCH MCHC RDW Std Deviation RDW Coeff of Art Plt Count MPV Immature Gran % (Auto) Neut % (Auto) Lymph % (Auto) Smith % (Auto) Eos % (Auto) Baso % (Auto) Absolute Neuts (auto) Absolute Lymphs (auto) Nucleated RBC % D-Dimer Quant (PE/DVT) Sodium Potassium Chloride Carbon Dioxide Anion Gap BUN Creatinine Est GFR (MDRD) Af Amer Est GFR (MDRD) Non-Af BUN/Creatinine Ratio Glucose Lactic Acid Calcium Troponin I High Sens B-Natriuretic Peptide Procalcitonin Urine Color Yellow Urine Clarity Sl. Cloudy Urine pH 6.0 Ur Specific [place] 1.015 Urine Protein 100 H Urine Glucose (UA) 50 H Urine Ketones Negative Urine Occult Blood Negative Urine Nitrite Negative Urine Bilirubin Negative Urine Urobilinogen Normal Ur Leukocyte Esterase Negative Urine RBC 0 SEEN Urine WBC 0-5 SEEN Ur Squamous Epith Cells 0-5 SEEN Urine Bacteria 0 SEEN Urine Mucus 0 SEEN Radiography Diagnostic Testing: Clinical Impression(s) from Imaging Studies Chest X-Ray 09/19/23 17:14 IMPRESSION: Bilateral perihilar pulmonary opacities worse on the left with considerations as above. CT with contrast recommended. Electronically Signed: Fercho Gillespie MD at 17:37 EST , EKG EG shows normal sinus rhythm, : Attestation: I personally reviewed and interpreted this EKG as follows: Comments: Normal sinus rhythm, rate of 81 bpm, NM 162 ms, QRS duration 66 ms, no acute ST elevation, no acute infarct noted. Treatment and Re-Evaluation :: Patient appears to be in no significant distress while on oxygen, patient is responding well to 2 to 3 L. Presenting to the emergency department for sudden onset shortness of breath history of CHF. Differential diagnose includes community-acquired pneumonia, CHF exacerbation, COPD exacerbation, pulmonary embolus. Patient's chest x-ray interpreted by the ER physician shows bilateral perihilar pulmonary opacities concerning for any pulmonary edema first patchy infiltrate. Patient's D-dimer is negative, patient CBC did show leukocytosis with white blood count 21.5, patient's troponin was negative. Creatinine is 4.39, looking back since May 2023, this is baseline. Patient is not currently on hemodialysis. She has been discussed by specialist, however she has refused hemodialysis. Troponin was negative at 28. Patient received lactic acid, procalcitonin for CHF versus pneumonia. proBNP will also be added. EKG was unremarkable. patient's proBNP was 916.5. Patient was given IV Lasix. At this time, I do believe the patient needs to be admitted to the hospital. <Dr. Baldemar Brennan, DO - Last Filed: 09/19/23 23:20> [facility] Narrative Medical decision making narrative: I have personally performed a face to face assessment of the patient and have reviewed the JAKUB Note. I performed a substantive portion of the visit including all aspects of the following. My fontenot findings include: History: Patient presents with shortness of breath that began today. Patient states it began rather suddenly. Patient states she woke up from a nap and was feeling short of breath. Patient states she had similar symptoms in May when she was diagnosed with congestive heart failure. Patient states she is currently taking Lasix. Patient states she has not missed any doses of her Lasix. Patient denies any chest pain. Patient states her breathing is worse with laying flat. Patient denies any fevers or chills. Exam: Vital signs are stable except for mildly elevated blood pressure 174/71. Patient is afebrile. Patient is in no acute distress. Oral mucosa is pink and moist. Neck is supple. Trachea is midline. There is no JVD. Heart was regular rate and rhythm. Lungs show bibasilar Rales over the lower half of the lungs bilaterally. There is good respiratory effort noted. Abdomen is soft. Bowel sounds are normal. There is no tenderness. Cranial nerves II through XII are intact. There are no focal motor or sensory deficits noted. Medical Decision Making: Differential diagnosis includes congestive heart failure, pneumonia, cardiac dysrhythmia, cardiac ischemia, electrolyte abnormality, and anxiety. Chest x-ray will be obtained to assess for pneumonia and congestive heart failure. CBC will be obtained to assess for leukocytosis and anemia. Basic metabolic profile will be obtained to assess for electrolyte abnormality and renal function. Serum lactate will be obtained to assess for sepsis. High-sensitivity troponin will be obtained to assess for cardiac ischemia. D-dimer will be obtained to assess for pulmonary embolism. EKG will be obtained to assess for cardiac dysrhythmia. BNP will be obtained to assess for congestive heart failure. Urinalysis will be obtained to assess for urinary tract infection. EKG was obtained. On my independent interpretation, it shows normal sinus rhythm with a rate of 81. NM interval, QRS normal, QTc intervals were within normal limits. [place] was normal. There are nonspecific ST-T wave changes noted. This was unchanged compared to previous EKG dated 05/24/2023. CBC was reviewed. There is a leukocytosis of 21.5. There is a mild anemia with a hemoglobin of 10.7 and hematocrit of 35.7. Platelets were normal. D-dimer was reviewed and was less than 0.27. Basic metabolic profile was reviewed. BUN was elevated at 78 and creatinine was 4.39. These are consistent with prior results. Serum lactate was reviewed and was normal at 1.1. High-sensitivity troponin was reviewed and was normal at 28. BNP was reviewed and was elevated at 916.5. Patient was given a dose of Lasix here. Patient was advised of her findings. Patient was advised of the need for hospitalization. Patient is agreeable with this. Case will be discussed with the hospitalist for admission. Patient understood and was agreeable with the plan. All questions were answered. Lab Data Labs: Laboratory Results - last 24 hr 09/19/23 09/19/23 09/19/23 17:25 17:50 18:30 WBC 21.5 H RBC 3.86 L Hgb 10.7 L Hct 35.7 L MCV 92.5 MCH 27.7 MCHC 30.0 L RDW Std Deviation 58.3 H RDW Coeff of Art 17.2 H Plt Count 371 MPV 11.5 Immature Gran % (Auto) 0.500 Neut % (Auto) 73.5 H Lymph % (Auto) 14.8 L Smith % (Auto) 5.8 Eos % (Auto) 4.7 Baso % (Auto) 0.7 Absolute Neuts (auto) 15.8 H Absolute Lymphs (auto) 3.19 Nucleated RBC % 0 D-Dimer Quant (PE/DVT) < 0.27 L Sodium 138 Potassium 5.0 Chloride 111 H Carbon Dioxide 20.0 L Anion Gap 7 BUN 70 H Creatinine 4.39 H Est GFR (MDRD) Af Amer 12 L Est GFR (MDRD) Non-Af 10 L BUN/Creatinine Ratio 15.9 Glucose 135 H Lactic Acid 1.1 Calcium 10.5 H Troponin I High Sens 28 B-Natriuretic Peptide 916.5 H Procalcitonin 0.27 H Urine Color Urine Clarity Urine pH Ur Specific [place] Urine Protein Urine Glucose (UA) Urine Ketones Urine Occult Blood Urine Nitrite Urine Bilirubin Urine Urobilinogen Ur Leukocyte Esterase Urine RBC Urine WBC Ur Squamous Epith Cells Urine Bacteria Urine Mucus 09/19/23 19:16 WBC RBC Hgb Hct MCV MCH MCHC RDW Std Deviation RDW Coeff of Art Plt Count MPV Immature Gran % (Auto) Neut % (Auto) Lymph % (Auto) Smith % (Auto) Eos % (Auto) Baso % (Auto) Absolute Neuts (auto) Absolute Lymphs (auto) Nucleated RBC % D-Dimer Quant (PE/DVT) Sodium Potassium Chloride Carbon Dioxide Anion Gap BUN Creatinine Est GFR (MDRD) Af Amer Est GFR (MDRD) Non-Af BUN/Creatinine Ratio Glucose Lactic Acid Calcium Troponin I High Sens B-Natriuretic Peptide Procalcitonin Urine Color Yellow Urine Clarity Sl. Cloudy Urine pH 6.0 Ur Specific [place] 1.015 Urine Protein 100 H Urine Glucose (UA) 50 H Urine Ketones Negative Urine Occult Blood Negative Urine Nitrite Negative Urine Bilirubin Negative Urine Urobilinogen Normal Ur Leukocyte Esterase Negative Urine RBC 0 SEEN Urine WBC 0-5 SEEN Ur Squamous Epith Cells 0-5 SEEN Urine Bacteria 0 SEEN Urine Mucus 0 SEEN Radiography Chest X-Ray - ED: 1 View, Read by ED Physician, Read by Radiologist and CHF Diagnostic Testing: Clinical Impression(s) from Imaging Studies Chest X-Ray 09/19/23 17:14 IMPRESSION: Bilateral perihilar pulmonary opacities worse on the left with considerations as above. CT with contrast recommended. Electronically Signed: Fercho Gillespie MD at 17:37 EST , Portable chest x-ray was obtained. There is 1 view. On my independent interpretation, there is congestive heart failure. Bony thorax is normal. There is borderline cardiomegaly. Radiologist also interpreted the x-ray and agrees. Discharge Plan Dx/Rx/DC Orders Clinical Impression: Acute exacerbation of CHF (congestive heart failure), Hypoxia, End stage chronic kidney disease Disposition Disposition: Acute Care Hospital [facility] Discharge Date/Time: 09/19/23 21:38
[2023-09-19 18:20] LABS: BNP,B-Type NATRIURETIC PEPTIDE 916.5 pg/mL (0-100)
[2023-09-19 18:25] LABS: Lactic Acid 1.1 mmol/L (0.4-1.9)
[2023-09-19 19:21] LABS: Bacteria 0 SEEN /hpf (None Seen); Mucous, Urine 0 SEEN /hpf (<or=2+); Red Blood Cells-Urine 0 SEEN /hpf (0-5)
[2023-09-19] MEDS: Furosemide 40 MG/4 ML Vial IV (19:24)
[2023-09-19 19:28] LABS: Color, Urine Yellow (Yellow); Glucose, Dipstick 50 mg/dl (Normal); Ketone-Dipstick Negative (Negative); Leukocyte Esterase-Dipstick Negative /ul (Negative); Nitrite-Dipstick Negative (Negative); Occult Blood-Urine Negative /ul (Negative); Protein-Dipstick 100 mg/dl (Negative); Specific Gravity, Urine 1.015 (1.002-1.030); Urine Bilirubin Dipstick Negative (Negative); Urine Clarity Sl. Cloudy (Clear); Urine Urobilinogen Normal (Normal)
--- NOTE | 2023-09-19 19:41 | PCM.HP.STD ---
HPI - General General Date of Admission: 09/19/23 Date of Service: 09/19/23 Chief Complaint: Shortness of Breath HPI Narrative FUNMI INGRAM, is a 83 F who presented to the emergency department at [facility] on 09/19/2023 with a chief complaint of shortness of breath. The patient states she has been feeling just fine. She stated she took a nap and woke up and was acutely short of breath. She has had no changes in her medications, no sick contacts denies any fever or chills, no cough or sputum production and states that she was just at the doctor couple days ago and was told she was doing quite well. EMS was called and at the time of their arrival her oxygen saturations were in the 80s. She is not dependent on oxygen at baseline. She had a recent admission here in May for similar process. Echocardiogram was done at that time and she was found to have an EF of 40%. With stage I diastolic dysfunction and severe hypokinesis of the lateral apex and mid anterior wall of the LV. No significant valvular abnormalities were identified. Medical therapy was recommended as she was not able to go through heart catheterization due to her CKD. She is also not amenable to dialysis and does follow with Dr. Ricci as an outpatient. She indicates she has been watching her salt intake as well as her fluid intake and thought she was doing quite well. She denies any weight gain and states she weighs herself daily. She has some mild chronic lower extremity swelling that is stable when compared to previous and actually improved overall. Vital signs on presentation show a temperature of 98, heart rate 72, blood pressure 175/72, respiratory was 20 and oxygen saturations were 86% on room air. CBC shows a leukocytosis with a left shift having a white count of 21.5 and a 73.5% neutrophilia. She has a chronic stable anemia with a hemoglobin of 10.7. Her D-dimer was less than 0.27. Chemistry panel shows stable electrolytes with an elevated BUN and creatinine at 70 and 4.39 respectively which is close to her baseline. Her calcium level is slightly elevated at 10.5. BNP was 916.5 which is up from her previous admission and a procalcitonin was obtained due to her leukocytosis and was only found to be 0.27 in the setting of CKD stage IV. A UA was obtained and not consistent with any infection. Chest x-ray shows patchy bilateral infiltrates versus edema. EKG demonstrated normal sinus rhythm with normal intervals and no acute ST-T wave changes consistent with acute ischemia. In the emergency department she was given a dose of IV Lasix and has already responded with increased urine output. I was able to wean her oxygen to 2 L while at the bedside and oxygen saturations were 96% on 2 L. [facility] Medical History ZULLY (acute kidney injury) CHF exacerbation CKD stage 4 secondary to hypertension Gout Heart murmur HTN (hypertension) Kidney failure NSTEMI (non-ST elevation myocardial infarction) Home Medications aspirin 81 mg chewable tablet 81 mg PO BREAKFAST HEART HEALTH #30 tabs 05/28/23 [Rx Last Taken 09/19/23] carvedilol 6.25 mg tablet 6.25 mg PO BID HEART #180 tabs 06/13/23 [Rx Last Taken 09/19/23] furosemide 40 mg tablet 20 mg (1/2 x 40 mg) PO DAILY EDEMA #30 tabs 06/13/23 [Rx Last Taken 09/19/23] isosorbide mononitrate 30 mg tablet,extended release 24 hr 30 mg PO DAILY CHEST PAIN #90 tabs 06/13/23 [Rx Last Taken 09/19/23] amlodipine 5 mg tablet 5 mg PO DAILY BLOOD PRESSURE #90 tabs 08/25/23 [Rx Last Taken 09/19/23] acetaminophen 325 mg tablet (Non-Aspirin) 325 mg PO Q6H PRN PAIN 09/19/23 [History Last Taken 09/18/23] allopurinol 100 mg tablet 100 mg PO DAILY GOUT 09/19/23 [History Last Taken 09/19/23] ceramides 1,3,6-II (CeraVe topical cream) 1 applic topical DAILY PRN DRY SKIN 09/19/23 [History Last Taken Unknown] cholecalciferol (vitamin D3) 25 mcg (1,000 unit) tablet 25 mcg PO DAILY SUPPLEMENT 09/19/23 [History Last Taken 09/19/23] Allergy/AdvReac Type Severity Reaction Status Date / Time ezetimibe [From Zetia] Allergy Mild Itching Verified 09/19/23 16:51 prednisone Allergy Mild Hives Verified 09/19/23 16:51 levothyroxine AdvReac Intermediate Diarrhea Verified 09/19/23 18:37 morphine AdvReac Mild Vomiting Verified 09/19/23 16:51 other (Unknown) no surgical history Social History (Updated 09/19/23 @ 20:[address] Rose Melendez DO) household members: none housing: house Smoking Status: Never smoker alcohol intake: never substance use type: does not use additional social history: Ambulates independently without the use of assistive device Vital Signs Vital Signs Vital Signs: 09/19/23 16:47 09/19/23 16:51 09/19/23 17:30 Temperature 97.4 F L Temperature Source Temporal Pulse Rate 88 Respiratory Rate 16 Respiratory Effort Blood Pressure 174/71 H Blood Pressure Mean 105 Pulse Ox 86 92 97 Oxygen Delivery Method Room Air Nasal Cannula Nasal Cannula Oxygen Flow Rate (L/min) 4 3 09/19/23 17:30 09/19/23 17:31 09/19/23 17:44 Temperature Temperature Source Pulse Rate Respiratory Rate Respiratory Effort Short of Breath Labored Blood Pressure Blood Pressure Mean Pulse Ox 97 90 Oxygen Delivery Method Nasal Cannula Nasal Cannula Nasal Cannula Oxygen Flow Rate (L/min) 3 3 2 09/19/23 17:59 09/19/23 18:41 09/19/23 18:42 Temperature 99 F Temperature Source Temporal Pulse Rate 83 77 77 Respiratory Rate 19 H 17 17 Respiratory Effort Blood Pressure 171/68 H 159/64 H 159/94 H Blood Pressure Mean 102 95 115 Pulse Ox 97 96 96 Oxygen Delivery Method Nasal Cannula Nasal Cannula Nasal Cannula Oxygen Flow Rate (L/min) 3 3 3 09/19/23 19:09 Temperature Temperature Source Pulse Rate 90 Respiratory Rate 24 H Respiratory Effort Blood Pressure 157/68 H Blood Pressure Mean 97 Pulse Ox Oxygen Delivery Method Nasal Cannula Oxygen Flow Rate (L/min) 3 Physical Exam Const alert, oriented x3, no apparent distress and well nourished Constitutional Narrative: Very pleasant, elderly, white female, sitting up in Bed, family at bedside, currently on 2 L with no signs of respiratory distress, nontoxic-appearing General Appearance: cooperative HEENT normocephalic, head/scalp atraumatic and moist oral mucous membranes HEENT Narrative: Mild hearing loss, dentures in place upper and lower, no thrush, Mallampati 2 Eyes PERRL, EOMs intact bilaterally and conjunctivae normal Eyes Narrative: No scleral icterus Neck no lymphadenopathy and supple Neck Narrative: Trachea midline, no thyroid enlargement, mild JVD noted Resp normal respiratory effort, no retractions, no use of accessory muscles and No clear to auscultation bilaterally Resp Narrative: Crackles at bilateral bases right greater than left Auscultation: crackles; Negative for rhonchi or wheezes Cardio regular rate, regular rhythm, S1 normal heart sound, S2 normal heart sound, no rub, no gallops and no clicks; Negative for no murmurs Cardio Narrative: 2 out of 6 systolic murmur loudest at left upper sternal border GI normal to inspection, nondistended, normoactive bowel sounds, soft to palpation and non-tender Extremity Extremity Narrative: Trace bilateral lower extremity pitting edema, no cyanosis or clubbing, pedal pulses are 2+ bilaterally lower extremity 2+ radial pulses upper extremity Skin no rashes or lesions noted, no wounds, skin turgor normal, no jaundice, no petechiae and no mottling Neuro oriented x3, moves all extremities and no focal motor deficits Speech: speech normal Psych affect normal Psych Narrative: Very pleasant, interacts appropriately, eye contact is good Results Lab / Micro Data 09/19/23 17:25 09/19/23 17:25 Labs: Laboratory Results - last 24 hr 09/19/23 17:25: WBC 21.5 H, RBC 3.86 L, Hgb 10.7 L, Hct 35.7 L, MCV 92.5, MCH 27.7, MCHC 30.0 L, RDW Std Deviation 58.3 H, RDW Coeff of Art 17.2 H, Plt Count 371, MPV 11.5, Immature Gran % (Auto) 0.500, Neut % (Auto) 73.5 H, Lymph % (Auto) 14.8 L, [place] % (Auto) 5.8, Eos % (Auto) 4.7, Baso % (Auto) 0.7, Absolute Neuts (auto) 15.8 H, Absolute Lymphs (auto) 3.19, Nucleated RBC % 0, D-Dimer Quant (PE/DVT) < 0.27 L, Sodium 138, Potassium 5.0, Chloride 111 H, Carbon Dioxide 20.0 L, Anion Gap 7, BUN 70 H, Creatinine 4.39 H, Est GFR (MDRD) Af Amer 12 L, Est GFR (MDRD) Non-Af 10 L, BUN/Creatinine Ratio 15.9, Glucose 135 H, Calcium 10.5 H, Troponin I High Sens 28, B-Natriuretic Peptide 916.5 H 09/19/23 17:50: Lactic Acid 1.1 09/19/23 19:16: Urine Color Yellow, Urine Clarity Sl. Cloudy, Urine pH 6.0, Ur Specific [place] 1.015, Urine Protein 100 H, Urine Glucose (UA) 50 H, Urine Ketones Negative, Urine Occult Blood Negative, Urine Nitrite Negative, Urine Bilirubin Negative, Urine Urobilinogen Normal, Ur Leukocyte Esterase Negative Imaging Radiology Impression Chest X-Ray 09/19/23 17:14 IMPRESSION: Bilateral perihilar pulmonary opacities worse on the left with considerations as above. CT with contrast recommended. Electronically Signed: Fercho Gillespie MD at 17:37 EST , Assessment & Plan Assessment/Plan (1) Hypoxia: (2) Acute exacerbation of CHF (congestive heart failure): (3) Leukocytosis (leucocytosis): (4) CKD stage 4 secondary to hypertension: (5) HFrEF (heart failure with reduced ejection fraction): PLAN: Plan Acute hypoxia secondary to acute on chronic HFrEF -Patient currently requiring 2 L nasal cannula maintain oxygen saturations greater than 88% -Wean as able -Highly suspect that all of this is related to heart failure based on her laboratory data, exam, and imaging -With severe renal dysfunction we will start Lasix 80 mg IV twice daily -First Lasix dose given the emergency department with good response -Monitor renal function closely -Daily weights -Accurate I's and O's -Fluid restricted -Nitropaste 1 inch x 24 hours -Will sodium restrict, potassium restrict, phosphorus restrict diet -Patient recently had echocardiogram on 05/24/2023 that showed an EF of 40% and wall motion abnormality--> no need to repeat at this time -Recommend outpatient cardiology follow-up after discharge Leukocytosis -Highly suspect this is reactive related to the acute events of today -No signs of infectious process and history is not consistent with infectious process -Procalcitonin is slightly elevated however in the setting of renal dysfunction this is likely inaccurate -Will check respiratory viral panel and COVID/flu/RSV PCR -No empiric antibiotics at this time -Repeat CBC in a.m. CKD stage IV -Patient is not amenable to dialysis -Will have Dr. Ricci follow while she is admitted given her need for Lasix and volume overload -Repeat BMP in a.m. -Will restrict diet with phosphorus and potassium restriction as well -Avoid nephrotoxins as able History of gout -Continue home allopurinol -Watch closely with diuresis CAD/HTN/HPL -Continue home amlodipine -Continue home aspirin -Continue home carvedilol -Continue home isosorbide mononitrate -Hold home Lasix Ischemic cardiomyopathy -EF is 40% -See above DVT prophylaxis -Subcu heparin 3 times daily CODE STATUS -DNR CCA with no intubation as verified on admission Charges/Coding Visit Charges Inpatient E&M: 24394 Init Hosp L2
[2023-09-19 19:42] LABS: Squamous Epithelial Cells - UA 0-5 SEEN /hpf (5-10); White Blood Cells 0-5 SEEN /hpf (0-5)
[2023-09-19 19:54] LABS: Procalcitonin 0.27 ng/mL (0.00-0.09)
--- OUTSIDE RECORDS SUMMARY | 2023-09-19 21:02 | XMS RPT_ITS | CCD ---
Author Name Unknown Address [address] [facility] [address] [place] [id number] Organization [facility] Care Team Providers Care Trader Fixed Income Name Role Phone Unavailable Primary Care Provider Unavailabl e Allergies Allergy Classification Reported Allergen(s) Allergy Type Date of Onset Reaction(s) Facility (2 sources) amLODIPine Drug Allergy 3 Unknown [facility] (3 sources) Codeine; Translations: [CODEINE SULFATE] Drug Allergy 5 GI Upset [facility] (3 sources) fluvastatin; Translations: [FLUVASTATIN] Drug Allergy 8 Myalgia [facility] (3 sources) Povidone-Iodine; Translations: [POVIDONE-IODINE ] Drug Allergy 0 Rash [facility] (2 sources) predniSONE Drug Allergy 3 Intolerance [facility] (3 sources) Simvastatin; Translations: [SIMVASTATIN] Drug Allergy 8 Myalgia [facility] (3 sources) Adhesive Tape-Silicones; Translations: [ADHESIVE TAPE-SILICONES] Drug Intolerance 0 Rash [facility] Medications Current Medications Medication Drug Class(es) Dates [...] 97.9 [degF] Libby Kumar APRN.CNP Work Phone: [facility] 06-04-2023 14:31-0400 Body weight 58.6 kg Libby Kumar APRN.CNP Work Phone: [facility] 06-04-2023 14:31-0400 Diastolic blood pressure 72 mm[Hg] Libby Kumar VIDEO JOURNALIST.BANDAGE MAKER Work Phone: [facility] 06-04-2023 14:31-0400 Heart rate 49 /min Libby Kumar VIDEO JOURNALIST.BANDAGE MAKER Work Phone: [facility] 06-04-2023 14:31-0400 Respiratory rate 18 /min Libby Kumar VIDEO JOURNALIST.BANDAGE MAKER Work Phone: [facility] 06-04-2023 14:31-0400 SaO2% (BldA) [Mass fraction] 100 % Libby Kumar VIDEO JOURNALIST.BANDAGE MAKER Work Phone: [facility] 06-04-2023 14:31-0400 Systolic blood pressure 160 mm[Hg] Libby Kumar VIDEO JOURNALIST.BANDAGE MAKER Work Phone: [facility] Encounters Encounter Date Encounter Type Care Provider Facility Start: 06-06-2023 Telephone encounter Kulwant brooke VIDEO JOURNALIST.BANDAGE MAKER Work Phone: [facility] Procedures Date Procedure Procedure Detail Performing Clinician Start: 06-04-2023 Urnls dip stick/tabl et rgnt auto w/o microscopy Libby Kumar VIDEO JOURNALIST.BANDAGE MAKER Work Phone: Plan of Treatment Date Care Activity Detail Author Start: 04-21-2023 Covid-19 Vaccine ( season) Covid-19 Vaccine () [facility] Start: 04-21-2023 Influenza vaccination Influenza Vaccine (#1) [facility] Start: 08-21-2022 Advance Directive Discussion Advance Directive Discussion [facility] Start: 08-21-2022 Depression Assessment Depression Assessment [facility] Start: 02-02-2015 Diabetes Screening Diabetes Screening [facility] Start: 08-21-2004 Pneumococcal Vaccine: 65+ (2 - PCV) Pneumococcal Vaccine: 65+ (2 - PCV) [facility] Start: 02-21-2004 Bone Density Screening Bone Density Screening [facility] Start: 1999 RSV Vaccine (1 - 1-dose 60+ series) RSV Vaccine (1 - 1-dose 60+ series) [facility] Start: 1989 Shingrix Vaccine (1 of 2) Shingrix Vaccine (1 of 2) [facility] Start: 1958 Urine microalbumin profile DTaP,Tdap,Td Vaccine (1 - Tdap) [facility] Bacteria identified in Urine by Culture URINE CULTURE Microbiology Routine Burning with urination 06/04/2023 3:17 PM EDT [facility] Work Phone: Immunizations Immunization Date Immunization Notes Care Provider Darin chavez 07-04-2011 influenza virus vacc ine, unspecified formulation Libby Kumar VIDEO JOURNALIST.BANDAGE MAKER Work Phone: [facility] 08-21-2003 pneumococcal polysaccharide vaccine, 23 valent Libby Kumar VIDEO JOURNALIST.BANDAGE MAKER Work Phone: [facility] Payers Date Payer Category Payer Medicare MMO MEDICARE MMO [employer]ANT[employer] HMO [id number] 2022-Present [phone] [address] [place] [address] [facility] [id number] 2022 Unknown [id number] Social History Date Type Detail [facility] Start: 06-04-2023 Alcohol intake Current non-dr [employer] pegger of alcohol (finding) [facility] Start: 06-04-2023 History of Social function [facility] Start: 06-04-2023 Tobacco use panel [facility] Start: 1940 Sex Assigned At Not on file [facility] Note 06-06-2023 Telephone Encounter - Zoila Sosa LPN - 06/06/2023 8:20 AM EDTTelephone Encounter - Kulwant Jiame APRN.CNP - 06/06/2023 7:45 AM EDT Note Date & Type Note Facility 06-06-2023 Miscellaneous Notes Formattin g of this note might be different from the original. Patient given results and verbalized understanding of instructions given. Zoila Sosa LPN Bacterial infection noted on urine culture. Continue antibiotics as prescribed. Follow-up with PCP if symptoms are not improving. Kulwant Jaime APRN.BANDAGE MAKER documented in this encounter [facility] Progress note 06-04-2023 Note Date & Type Note Facility 06-04-2023 Note HNO ID: [id number] Author: Libby Kumar APRN.BANDAGE MAKER Service: ? Author Type: Nurse Practitioner Type: [...] expected course of illness Libby Kumar APRN.NATALIE [facility] History of Present illness Narrative 06-04-2023 Libby [...] Discussed expected course of illness Libby Kumar APRN.BANDAGE MAKER documented in this encounter [facility] Instructions 06-04-2023 Patient Instructions Note Date & [...] have an infection. documented in this encounter [facility] History of Past illness Narrative 07-06-2005 Note Date & Type Note Facility documented as of this encounter (statuses as of 06/04/2023) [facility] History of Past illness Narrative 07-06-2005 Note Date & Type Note Facility documented as of this encounter (statuses as of 06/06/2023) [facility] Evaluation note Note Date & Type Note Facility documented in this encounter [facility] Summary Purpose Family History No Family History [...] or prosecute any alcohol or drug abuse patient.[facility] Reason for Visit (unrecogniz ed section and [...] BE BASED ON THE PRIMARY CLINICAL RECORDS. [employer] [facility]. provides no warranty or guarantee of the accuracy or completeness of information in this document.
[2023-09-19] MEDS: Heparin Injection (Vial) 5,000 UNIT/ML VIAL 5000 UNIT SC (22:13)
[2023-09-19] MEDS: Carvedilol 6.25 MG Tablet PO (22:13)
[2023-09-19] MEDS: 0.9% Saline Lock 10 ML Syringe IV (22:15)
[2023-09-19 22:34] LABS: Troponin-I HS 62 pg/mL (3.0-54.0)
[2023-09-19] MEDS: Acetaminophen 325 MG Tablet 650 MG PO (22:50)
[2023-09-20 00:49] LABS: Troponin-I HS 80 pg/mL (3.0-54.0)
[2023-09-20 03:05] VITALS: BP 156/65; PULSE 62; RESP 24; TEMP 36.9; O2SAT 92
[2023-09-20 03:14] LABS: Absolute Lymphocyte Count 3.79 X10^3/uL (0.83-4.51); Absolute Neutrophil Count 11.9 X10^3/uL (2.0-7.7); Basophil# 0.08 X10^3/uL; Basophil% 0.5 % (0-1); Eosinophil# 0.13 X10^3/uL; Eosinophils% 0.8 % (0-5); Hematocrit 31.2 % (37-47); Hemoglobin 9.5 g/dL (12.0-15.0); Lymphocyte # 3.79 X10^3/ul (0.83-4.51); Lymphocyte % 22.1 % (19-41); Mean Corp Hgb Conc 30.4 g/dL (32-36); Mean Corpuscular Hgb 28.3 pg (27.0-32.0); Mean Corpuscular Volume 92.9 fL (81-99); Mean Platelet Vol. 11.7 fl (6.2-12.0); Monocyte# 1.19 X10^3/uL; Monocyte% 6.9 % (0-10); NRBC Flagged by Analyzer 0 % (0-5); Neutrophil % 69.2 % (47-70); Platelet Count 301 K/mm3 (150-450); RBC Distribution Width CV 17.1 % (11.6-14.6); RBC Distribution Width SD 57.6 fl (35.1-43.9); Red Blood Count 3.36 M/mm3 (4.2-5.4); White Blood Count 17.2 K/mm3 (4.4-11.0)
[2023-09-20 03:36] LABS: AST(SGOT) 5 U/L (15-37); Alanine Aminotransfer ALT/SGPT 11 U/L (13-56); Albumin, Serum 3.4 g/dL (3.2-5.0); Alkaline Phosphatase 66 U/L (45-117); Anion Gap 5 (5-15); BUN 70 mg/dL (7-18); BUN/Creat Ratio 16.1 RATIO (10-20); Calcium,Total 9.9 mg/dL (8.5-10.1); Chloride 110 mmol/L (98-107); Creatinine, Serum 4.36 mg/dL (0.55-1.02); EST Glomerular Filtration Rate 10 mL/min (>60); Est Glom Filt Rate - Afr Amer 12 mL/min (>60); Estimated Creatinine Clearance 7.69 ml/min; Globulin 3.3 g/dL (2.2-4.2); Glucose 108 mg/dL (74-106); Magnesium 2.1 mg/dL (1.6-2.6); Phosphorus 4.6 mg/dL (2.5-4.9); Potassium 4.9 mmol/L (3.5-5.1); Protein, Total 6.7 g/dL (6.4-8.2); Sodium Level 137 mmol/L (136-145)
[2023-09-20 05:27] VITALS: BMI 26.0
[2023-09-20] MEDS: 0.9% Saline Lock 10 ML Syringe IV (06:27)
[2023-09-20] MEDS: Heparin Injection (Vial) 5,000 UNIT/ML VIAL 5000 UNIT SC ×3 (06:27→20:14)
[2023-09-20 06:53] LABS: Ferritin 67 ng/mL (8-252); Iron 23 ug/dL (50-170); Iron Binding Capacity,Total 213 ug/dL (250-450); PERCENT IRON SATURATION 10.8 % (15.0-55.0)
[2023-09-20 08:37] VITALS: BP 158/64; PULSE 69; RESP 24; TEMP 37.1; O2SAT 100
[2023-09-20] MEDS: Carvedilol 6.25 MG Tablet PO ×2 (08:48→18:06)
[2023-09-20] MEDS: Isosorbide Mononitrate 30 MG Tablet PO (08:49)
[2023-09-20] MEDS: Aspirin 81 MG TAB.CHEW PO (08:49)
[2023-09-20] MEDS: Furosemide 100 MG/10 ML Vial 80 MG IV (08:50)
[2023-09-20] MEDS: amLODIPine 5 MG Tablet PO (08:51)
[2023-09-20 09:30] VITALS: O2SAT 94
--- NOTE | 2023-09-20 11:02 | CON.PCM.RE_ITS ---
Assessment & Plan Assessment/Plan (1) Acute exacerbation of CHF (congestive heart failure): (2) CKD stage 4 secondary to hypertension: PLAN: Plan This is an 83-year-old female with past medical history significant for chronic kidney disease who presented to the emergency room yesterday with complaints of shortness of breath and admitted for acute hypoxic exacerbation CHF, started on Lasix 80 mg IV twice daily. Influenza, RSV, Covid were negative. Nephrology consulted in view of history of CKD stage IV/V (patient has about 1.3 g proteinuria at baseline). Patient is known to our practice, last seen by Dr. Ricci in June. Baseline creatinine had been around 3 mg/dL as of 2022. She did have a hospitalization in May 2023 for non-STEMI, acute CHF and her creatinine was ranging around 4 to 5 mg/dL. Patient has not had hemodialysis however she has also said multiple times that should it come to it she would not do dialysis. Patient had lab work in June 2023 creatinine was 4.9 mg/dL. Yesterday creatinine 4.39 and today her creatinine is 4.36, eGFR 10ml/min. Patient is on Lasix 80 mg IV twice daily. Her volume status likely has improved since admission. She is on room air, she has trace edema and her weight is 58.6 kg, in May her weight ranged 57 to 59 kg. She received Lasix 80 mg already this morning, will reduce dose to 40 mg IV later today. Labs ordered for the morning. Patient was only taking 20 mg of Lasix daily, likely she will need higher dose of Lasix at time of discharge. Reviewed with patient importance of daily fluid restriction and daily weights. Today I had a long discussion with patient as we have had in past about should kidney function continue to worsen she would be heading towards needing dialysis. Patient states that she does not want to do dialysis. We also briefly discussed palliative care and or hospice options. Patient voiced understanding and questions answered. Further orders forthcoming as hospitalization evolves, thank you for allowing us to participate in the care of Ms. Ingram. HPI Consult Data Date of Consult: 09/20/23 HPI Narrative HPI Narrative: FUNMI INGRAM, is a 83 F with past medical history significant for chronic heart failure reduced EF (last known EF 40% May 2023), CKD stage IV secondary to hypertension, who presented to emergency room yesterday with complaints of shortness of breath. Oxygen saturation in the emergency room in the 80s, improved with supplemental oxygen. Chest x-ray showed bilateral hazy increased pulmonary density worse on left, findings suggestive of pulmonary edema. Patient did receive dose of IV Lasix in the emergency room and was admitted for further evaluation and treatment. Nephrology consulted in view of history of CKD stage IV/V. Patient reports that she had been feeling well over the weekend, cooked lunch for her grandkids. Patient reports shortness of breath became sudden onset Monday to Monday. She denies any chest pain. Denies any nausea or vomiting. Denies any recent diarrhea. No urinary habitus changes. Does not take NSAIDs. [facility] Medical History (Updated 09/19/23 @ 21:22 by Christina Prasad) ZULLY (acute kidney injury) CHF exacerbation CKD stage 4 secondary to hypertension Gout Heart murmur HTN (hypertension) Hypothyroid Kidney failure NSTEMI (non-ST elevation myocardial infarction) Vitamin D deficiency Home Medications aspirin 81 mg chewable tablet 81 mg PO BREAKFAST HEART HEALTH #30 tabs 05/28/23 [Rx Last Taken 09/19/23] carvedilol 6.25 mg tablet 6.25 mg PO BID HEART #180 tabs 06/13/23 [Rx Last Taken 09/19/23] furosemide 40 mg tablet 20 mg (1/2 x 40 mg) PO DAILY EDEMA #30 tabs 06/13/23 [Rx Last Taken 09/19/23] isosorbide mononitrate 30 mg tablet,extended release 24 hr 30 mg PO DAILY CHEST PAIN #90 tabs 06/13/23 [Rx Last Taken 09/19/23] amlodipine 5 mg tablet 5 mg PO DAILY BLOOD PRESSURE #90 tabs 08/25/23 [Rx Last Taken 09/19/23] acetaminophen 325 mg tablet (Non-Aspirin) 325 mg PO Q6H PRN PAIN 09/19/23 [History Last Taken 09/18/23] allopurinol 100 mg tablet 100 mg PO DAILY GOUT 09/19/23 [History Last Taken 09/19/23] ceramides 1,3,6-II (CeraVe topical cream) 1 applic topical DAILY PRN DRY SKIN 09/19/23 [History Last Taken Unknown] cholecalciferol (vitamin D3) 25 mcg (1,000 unit) tablet 25 mcg PO DAILY SUPPLEMENT 09/19/23 [History Last Taken 09/19/23] Allergy/AdvReac Type Severity Reaction Status Date / Time ezetimibe [From Zetia] Allergy Mild Itching Verified 09/19/23 16:51 prednisone Allergy Mild Hives Verified 09/19/23 16:51 levothyroxine AdvReac Intermediate Diarrhea Verified 09/19/23 18:37 morphine AdvReac Mild Vomiting Verified 09/19/23 16:51 Family History other Surgical History no surgical history Social History (Updated 09/19/23 @ 20:[address] Rose Melendez, DO) household members: none housing: house Smoking Status: Never smoker alcohol intake: never substance use type: does not use additional social history: Ambulates independently without the use of assistive device ROS ROS Narrative As in HPI and past medical history Physical Exam Narrative Alert and orient x 3, no apparent distress S1, S2, RRR Lung sounds with diminished breath sounds, no rales or rhonchi. Patient is on room air Abdomen soft, nontender Trace edema bilateral lower legs and feet Lab / Micro Data 09/20/23 03:05 09/20/23 03:05 Labs: Laboratory Results - last 24 hr 09/19/23 17:25: WBC 21.5 H, RBC 3.86 L, Hgb 10.7 L, Hct 35.7 L, MCV 92.5, MCH 27.7, MCHC 30.0 L, RDW Std Deviation 58.3 H, RDW Coeff of Art 17.2 H, Plt Count 371, MPV 11.5, Immature Gran % (Auto) 0.500, Neut % (Auto) 73.5 H, Lymph % (Auto) 14.8 L, [place] % (Auto) 5.8, Eos % (Auto) 4.7, Baso % (Auto) 0.7, Absolute Neuts (auto) 15.8 H, Absolute Lymphs (auto) 3.19, Nucleated RBC % 0, D-Dimer Quant (PE/DVT) < 0.27 L, Sodium 138, Potassium 5.0, Chloride 111 H, Carbon Dioxide 20.0 L, Anion Gap 7, BUN 70 H, Creatinine 4.39 H, Est GFR (MDRD) Af Amer 12 L, Est GFR (MDRD) Non-Af 10 L, BUN/Creatinine Ratio 15.9, Glucose 135 H, Calcium 10.5 H, Troponin I High Sens 28, B-Natriuretic Peptide 916.5 H 09/19/23 17:50: Lactic Acid 1.1 09/19/23 18:30: Procalcitonin 0.27 H 09/19/23 19:16: Urine Color Yellow, Urine Clarity Sl. Cloudy, Urine pH 6.0, Ur Specific [place] 1.015, Urine Protein 100 H, Urine Glucose (UA) 50 H, Urine Ketones Negative, Urine Occult Blood Negative, Urine Nitrite Negative, Urine Bilirubin Negative, Urine Urobilinogen Normal, Ur Leukocyte Esterase Negative, Urine RBC 0 SEEN, Urine WBC 0-5 SEEN, Ur Squamous Epith Cells 0-5 SEEN, Urine Bacteria 0 SEEN, Urine Mucus 0 SEEN 09/19/23 22:00: Troponin I High Sens 62 H 09/20/23 00:01: Troponin I High Sens 80 H 09/20/23 03:05: WBC 17.2 H, RBC 3.36 L, Hgb 9.5 L, Hct 31.2 L, MCV 92.9, MCH 28.3, MCHC 30.4 L, RDW Std Deviation 57.6 H, RDW Coeff of Art 17.1 H, Plt Count 301, MPV 11.7, Immature Gran % (Auto) 0.500, Neut % (Auto) 69.2, Lymph % (Auto) 22.1, [place] % (Auto) 6.9, Eos % (Auto) 0.8, Baso % (Auto) 0.5, Absolute Neuts (auto) 11.9 H, Absolute Lymphs (auto) 3.79, Nucleated RBC % 0, Sodium 137, Potassium 4.9, Chloride 110 H, Carbon Dioxide 22.0, Anion Gap 5, BUN 70 H, Creatinine 4.36 H, Estim Creat Clear Calc 7.69, Est GFR (MDRD) Af Amer 12 L, Est GFR (MDRD) Non-Af 10 L, BUN/Creatinine Ratio 16.1, Glucose 108 H, Calcium 9.9, Phosphorus 4.6, Magnesium 2.1, Iron 23 L, TIBC 213 L, Iron Saturation 10.8 L, Ferritin 67, Total Bilirubin 0.80, AST 5 L, ALT 11 L, Alkaline Phosphatase 66, Total Protein 6.7, Albumin 3.4, Globulin 3.3, Albumin/Globulin Ratio 1.0 Micro: Microbiology 09/19/23 23:11 Mucosa - Nasopharyngeal Respiratory Panel (PCR) - Final 09/19/23 20:50 Mucosa - Nose SARS-CoV-2, Influenza & RSV (PCR) - Final Imaging Radiology Impression Chest X-Ray 09/19/23 17:14 IMPRESSION: Bilateral perihilar pulmonary opacities worse on the left with considerations as above. CT with contrast recommended. Electronically Signed: Fercho Gillespie MD at 17:37 EST ,
[2023-09-20] MEDS: Allopurinol 100 MG Tablet PO (11:08)
[2023-09-20] MEDS: Loperamide 2 MG Capsule 4 MG PO (11:08)
[2023-09-20] MEDS: Cholecalciferol (VIT D3) 25 MCG TABLET (1,000 UNITS) PO (11:08)
--- NOTE | 2023-09-20 12:07 | CHAPLAIN ---
Type of Pastoral Visit _x__ Initial Visit ___ Follow-up Visit ___ On-call Visit ___ General Patient Visit ___ Spiritual Assessment ___ Family Conference ___ Bereavement ___ Rapid Response ___ Code Blue ___ Other (describe below) Pastoral Care Referral From _x__ Patient ___ Family ___ Nurse ___ Physician ___ Carburizer ___ Banking Center Manager ___ Other (describe below) Sacrament/Intervention _x__ Active listening ___ Anointing ___ Evangelical ___ Bereavement ___ Communion _x__ Francheska exploration ___ _x__ Life review _x__ Prayer ___ Reconciliation ___ Sacrament of Sick ___ Supportive presence ___ Wedding ___ Other (describe below) Pastoral Comments patient is very welcoming and gives her summary of health need and how she is managing that and her life at this stage; pt gives some life review including her relationship to mother, the of her spouse 20 years ago, and her own francheska journey; pt is not currently involved in any francheska community which she admits that she misses; pt has concerns for her daughter who has many challenges right now; pt asks for prayer for her family; pt expresses gratitude for the time given and for the spiritual care
[2023-09-20 14:30] VITALS: BP 100/70; PULSE 79; RESP 20; TEMP 36.9; O2SAT 95
--- NOTE | 2023-09-20 16:35 | CASEMGMT ---
RN?CM?WEIGHT TRAINING INSTRUCTOR?CM?to room to meet with patient for initial transition planning/care coordination?assessment.?RN?CM?introduced self and role at [facility].? Pt voices understanding and consents to?assessment?at this time.? Pt sitting up in chair in room in no distress at this time.? Son, Virgilio, in room visiting and pt agreeable to him being present during assessment. Pt is A/O at this time and answers all questions appropriately.?? Care providers, pharmacy, and demographics verified/updated at this time. PCP: Dr Felix Specialists: FAVOI/cardiology, Dr Ricci-nephrology [facility] Insurance:MMO [facility] Prescription Benefit:?Yes Living Will/HPOA:?Has a LW, but does not have HCPOA. She declines wanting to complete w/SW while @ [facility]. She states a family friend is an immigration attorney and she plans to f/u with him to complete this. LNOK: 3 adult children. Living Arrangements: Lives alone in one-story home w/no steps to enter. Dtr lives right next door , but pt states she is worse off than I am . Pt states she is independent w/ADL's, IADL's, and manages her own medications. Good family support. Transportation:?Pt, family DME: ?States has the following DME:?built-in shower seat and walker available, but does not use either. Pt uses no AD to ambulate. Pt has a pulse ox and a scale. She does not have home O2. Pt states, if she qualifies for O2 @ discharge, she does not have preference of DME co. Discussed local options and she chooses [employer]. Pt states no need for further DME at this time.? HHC/SNF: No hx of either. Pt signed up for [facility] @ last d/c in . She states she completed the program and denies need this again. Pt wishes to return home and states has no concerns with going home at time of discharge.? CM?to follow for home oxygen needs and any further discharge planning/needs.? Pt voices no further concerns/needs at this time.? Advised pt to ask for?CM?if any further questions/concerns/needs arise.? Voices understanding. PLAN:??Home Follow for possible need of Home O2. Rachelle BASHIR?RN?CM
[2023-09-20 18:05] VITALS: BP 137/47; PULSE 63
[2023-09-20] MEDS: Furosemide 40 MG/4 ML Vial IV (18:06)
--- NOTE | 2023-09-20 18:27 | PN.HOSP_ITS ---
Reason for Visit Reason for Visit: Diagnoses Elevated white blood cell count, unspecified (09/19/23) Hypertensive chronic kidney disease with stage 1 through stage 4 chronic kidney disease, or unspecified chronic kidney disease (09/19/23) Unspecified systolic (congestive) heart failure (09/19/23) Heart failure, unspecified (09/19/23) Chronic kidney disease, stage 4 (severe) (09/19/23) Hypoxemia (09/19/23) Subjective Subjective Patient was seen and examined today, I talked briefly with the nephrology nurse practitioner about her care, patient has a chronic kidney disease and does not want to undergo any dialysis, I talked briefly with her about this and I understand, she is 83 years old and had some shortness of breath, she told me she had been told by nephrology in the past that she might have to increase her Lasix she was only taking 20 mg daily. Patient was admitted for congestive heart failure-acute on chronic heart failure with reduced ejection fraction, patient's last echocardiogram showed an EF of 40%. Patient is on room air at the time of my examination and does not complain of any shortness of breath. Nephrology states they are going to decrease her IV Lasix and reevaluate her tomorrow Objective Data Objective Data Vital Signs: Vital Signs Temp Pulse Resp BP Pulse Ox O2 Del Method O2 Flow Rate 98.4 F 63 20 H 137/47 H 95 Room Air 1 09/20/23 14:30 09/20/23 18:05 09/20/23 14:30 09/20/23 18:05 09/20/23 14:30 09/20/23 15:30 09/19/23 23:11 Oxygen Flow Rate (L/min) 1 Oxygen Delivery Method Room Air Weight: 58.6 kg Body Mass Index (BMI) 26.0 Lab / Micro Data 09/20/23 03:05 09/20/23 03:05 Labs: Laboratory Results - last 24 hr 09/19/23 18:30: Procalcitonin 0.27 H 09/19/23 19:16: Urine Color Yellow, Urine Clarity Sl. Cloudy, Urine pH 6.0, Ur Specific [place] 1.015, Urine Protein 100 H, Urine Glucose (UA) 50 H, Urine Ketones Negative, Urine Occult Blood Negative, Urine Nitrite Negative, Urine Bilirubin Negative, Urine Urobilinogen Normal, Ur Leukocyte Esterase Negative, Urine RBC 0 SEEN, Urine WBC 0-5 SEEN, Ur Squamous Epith Cells 0-5 SEEN, Urine Bacteria 0 SEEN, Urine Mucus 0 SEEN 09/19/23 22:00: Troponin I High Sens 62 H 09/20/23 00:01: Troponin I High Sens 80 H 09/20/23 03:05: WBC 17.2 H, RBC 3.36 L, Hgb 9.5 L, Hct 31.2 L, MCV 92.9, MCH 28.3, MCHC 30.4 L, RDW Std Deviation 57.6 H, RDW Coeff of Art 17.1 H, Plt Count 301, MPV 11.7, Immature Gran % (Auto) 0.500, Neut % (Auto) 69.2, Lymph % (Auto) 22.1, [place] % (Auto) 6.9, Eos % (Auto) 0.8, Baso % (Auto) 0.5, Absolute Neuts (auto) 11.9 H, Absolute Lymphs (auto) 3.79, Nucleated RBC % 0, Sodium 137, Potassium 4.9, Chloride 110 H, Carbon Dioxide 22.0, Anion Gap 5, BUN 70 H, Creatinine 4.36 H, Estim Creat Clear Calc 7.69, Est GFR (MDRD) Af Amer 12 L, Est GFR (MDRD) Non-Af 10 L, BUN/Creatinine Ratio 16.1, Glucose 108 H, Calcium 9.9, Phosphorus 4.6, Magnesium 2.1, Iron 23 L, TIBC 213 L, Iron Saturation 10.8 L, Ferritin 67, Total Bilirubin 0.80, AST 5 L, ALT 11 L, Alkaline Phosphatase 66, Total Protein 6.7, Albumin 3.4, Globulin 3.3, Albumin/Globulin Ratio 1.0 Micro: Microbiology 09/19/23 23:11 Mucosa - Nasopharyngeal Respiratory Panel (PCR) - Final 09/19/23 20:50 Mucosa - Nose SARS-CoV-2, Influenza & RSV (PCR) - Final Physical Exam Const alert, oriented x3, no apparent distress, average body habitus and healthy appearing General Appearance: cooperative, well kempt and well developed Orientation / Consciousness: awake, oriented to person, oriented to place and oriented to time HEENT normocephalic, head/scalp atraumatic and moist oral mucous membranes Eyes PERRL, EOMs intact bilaterally and conjunctivae normal Neck supple, no JVD, thyroid normal and no carotid bruits General: trachea midline Resp normal respiratory effort, no retractions, no use of accessory muscles and clear to auscultation bilaterally Auscultation: Negative for rales, rhonchi or wheezes Cardio regular rate, regular rhythm, S1 normal heart sound, S2 normal heart sound, no murmurs, no rub and no gallops GI normal to inspection, nondistended, normoactive bowel sounds, soft to palpation, non-tender and non-distended Extremity no clubbing, cyanosis or edema Skin no rashes or lesions noted General Skin Exam: no breakdown Neuro oriented x3, CN's II-XII intact bilaterally, moves all extremities, no focal motor deficits and no sensory deficits noted Sensorium / Orientation: awake and alert Speech: speech normal Psych affect normal Assessment & Plan Assessment/Plan (1) Acute exacerbation of CHF (congestive heart failure): PLAN: Plan 1. 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- continue IV Lasix per nephrology, I will stop the patient's Nitropaste at this time, patient will have a repeat chest x-ray tomorrow morning #2 leukocytosis-this may be a stress reaction, patient does not show any evidence of pneumonia at this time #3 chronic kidney disease stage IV-again patient does not want to consider mercedes lysis, labs will be monitored as necessary, nephrology is seeing the patient #4 probable coronary artery disease-patient is stable at this time, she will remain on her current medications #5 cardiomyopathy-etiology not clear at this point, patient does not have any occlusive coronary disease-she does not want any invasive therapy #6 essential hypertension-patient will remain on her current medications #7 diarrhea-patient complained of diarrhea this morning, she has some abdominal cramping but no real abdominal discomfort. I will write for Imodium for the patient. Total clinical time spent by myself addressing the patient's medical issues, reviewing all of her data, and collaborating with patient's care team: 35 minutes Charges/Coding Visit Charges Inpatient E&M: 79456 Subs Hosp L2
[2023-09-20] MEDS: Acetaminophen 325 MG Tablet 650 MG PO (20:14)
[2023-09-20 20:22] VITALS: BP 145/59; PULSE 68; RESP 20; TEMP 37.5; O2SAT 96
[2023-09-21 03:00] VITALS: BP 130/61; PULSE 63; RESP 18; TEMP 37.7; O2SAT 97
[2023-09-21] MEDS: Heparin Injection (Vial) 5,000 UNIT/ML VIAL 5000 UNIT SC (03:11)
[2023-09-21 05:21] VITALS: BMI 26.2
[2023-09-21 08:19] VITALS: BP 164/58; PULSE 67; RESP 21; TEMP 37.4; O2SAT 94
[2023-09-21] MEDS: amLODIPine 5 MG Tablet PO (08:22)
[2023-09-21] MEDS: Carvedilol 6.25 MG Tablet PO (08:22)
[2023-09-21] MEDS: Aspirin 81 MG TAB.CHEW PO (08:22)
[2023-09-21] MEDS: Furosemide 40 MG/4 ML Vial IV (08:23)
[2023-09-21] MEDS: Isosorbide Mononitrate 30 MG Tablet PO (08:23)
[2023-09-21 09:20] VITALS: O2SAT 94
--- NOTE | 2023-09-21 10:04 | DCINST_ITS ---
Discharge Instructions Diet Discharge Diet: No restrictions Activity Discharge Activity: Return to Normal Activity Weight Bearing Status: Full weight bearing Follow Up Care Test Results: Test results from this visit will be discussed in further detail at your follow- up appointment, if applicable. Discharge Plan Admission Admit Date/Time: 09/19/23 19:30 Primary Reason for Your Visit: CHF Attending Provider: Hay Ray Primary Care Provider: Jodi Felix Consulting Providers: Gustavo Ricci; Rose Melendez Discharge Orders/Prescriptions Prescriptions: New furosemide [Lasix] 20 mg tablet 20 mg PO UD Qty: 90 0RF Rx Instructions: Two every morning, take 1 late afternoon daily Continued carvedilol 6.25 mg tablet 6.25 mg PO BID Qty: 180 3RF isosorbide mononitrate 30 mg tablet extended release 24 hr 30 mg PO DAILY Qty: 90 3RF aspirin 81 mg Tablet,Chewable 81 mg PO BREAKFAST Qty: 30 2RF cholecalciferol (vitamin D3) 25 mcg (1,000 unit) tablet 25 mcg PO DAILY allopurinol 100 mg tablet 100 mg PO DAILY ceramides 1,3,6-II [CeraVe] Cream 1 applic topical DAILY PRN (Reason: DRY SKIN ) acetaminophen [Non-Aspirin] 325 mg tablet 325 mg PO Q6H PRN (Reason: PAIN ) amlodipine 5 mg tablet 5 mg PO DAILY Qty: 90 3RF Discontinued furosemide 40 mg tablet 20 mg PO DAILY Qty: 30 2RF Referrals / Follow Up: Gustavo Ricci MD [Med Staff - Consulting] - See Referral Note (As directed) Jodi Felix NP-C [Primary Care Provider] - See Referral Note (At next scheduled appointment) Disposition Disposition (needs filled in before D/C Order can be placed): Home, Self Care
--- NOTE | 2023-09-21 10:11 | PCM.DC.SUM ---
Providers Date of Admission: 09/19/23 Date of Discharge: 09/21/23 Primary Care Physician: MARCIANO Guerrero Consultations 09/19/23 21:24 Consult: Nephrology Routine Consulting Provider: Gustavo Ricci Reason for Consult: CKD stage 4 EMERGENT Consult: No MD Notified: Yes Date Notified: 09/20/23 Time Notified: 06:47 Method of Notification: Answering Service Reason For Visit: ACUTE HYPOXIA 2/2 ACUTE EXACERBATION OF CHF Diagnosis Discharge Diagnosis (1) Acute exacerbation of CHF (congestive heart failure): Status: Resolved Code(s): I50.9 - Heart failure, unspecified Plan 1. 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-continue IV Lasix per nephrology, I will stop the patient's Nitropaste at this time, patient will have a repeat chest x-ray tomorrow morning #2 leukocytosis-this may be a stress reaction, patient does not show any evidence of pneumonia at this time #3 chronic kidney disease stage IV-again patient does not want to consider dialysis, labs will be monitored as necessary, nephrology is seeing the patient #4 probable coronary artery disease-patient is stable at this time, she will remain on her current medications #5 cardiomyopathy-etiology not clear at this point, patient does not have any occlusive coronary disease-she does not want any invasive therapy #6 essential hypertension-patient will remain on her current medications #7 diarrhea-patient complained of diarrhea this morning, she has some abdominal cramping but no real abdominal discomfort. I will write for Imodium for the patient. Total clinical time spent by myself addressing the patient's medical issues, reviewing all of her data, and collaborating with patient's care team: 35 minutes Medications at Discharge Home Medications aspirin 81 mg chewable tablet 81 mg PO BREAKFAST HEART HEALTH #30 tabs 05/28/23 carvedilol 6.25 mg tablet 6.25 mg PO BID HEART #180 tabs 06/13/23 isosorbide mononitrate 30 mg tablet,extended release 24 hr 30 mg PO DAILY CHEST PAIN #90 tabs 06/13/23 amlodipine 5 mg tablet 5 mg PO DAILY BLOOD PRESSURE #90 tabs 08/25/23 acetaminophen 325 mg tablet (Non-Aspirin) 325 mg PO Q6H PRN PAIN 09/19/23 allopurinol 100 mg tablet 100 mg PO DAILY GOUT 09/19/23 ceramides 1,3,6-II (CeraVe topical cream) 1 applic topical DAILY PRN DRY SKIN 09/19/23 cholecalciferol (vitamin D3) 25 mcg (1,000 unit) tablet 25 mcg PO DAILY SUPPLEMENT 09/19/23 furosemide 40 mg tablet (Lasix) 40 mg PO BID #60 tabs 09/21/23 Hospital Course Operations None Procedures None Summary of Care Provided Minutes Spent on Discharge: 31 Hospital Course: This 83-year-old white female was seen in the emergency room at [facility] with complaints of shortness of breath, workup in the emergency room included a CBC which showed elevated white blood cell count, patient's creatinine and BUN were elevated-she has chronic stage IV kidney disease-and chest x-ray showed bilateral perihilar pulmonary opacities worse on the left suggestive of central pulmonary edema or patchy atelectasis or perhaps infiltrative process such as pneumonia. Blood cell count was elevated but she was not felt to have pneumonia. Patient was felt to be in congestive heart failure with reduced ejection fraction, she was admitted to PCU and placed on IV diuresis and was seen in consultation by nephrology. Initially patient was hypoxic and was on 3 L of oxygen, this was weaned off within 24 hours. This, on 09/21/2023, patient was seen and examined: On examination she appeared in good health and spirits, she does not appear to be in any distress. Vital signs as documented. Skin warm and dry and without overt rashes. Neck without JVD, thyroid appears normal, trachea is midline, neck is supple. Lungs faint rales noted on inspiration at the left lung base, normal air movement was noted. Heart exam notable for regular rhythm, normal sounds and absence of murmurs, rubs or gallops. Abdomen unremarkable and without evidence of organomegaly, masses, or abdominal aortic enlargement, bowel sounds are present in all 4 quadrants, no abdominal tenderness was noted. Extremities nonedematous, no cyanosis was noted, no clubbing was noted. Neuro: Cranial nerves II through XII are grossly intact, no focal motor deficits were noted, sensation to light touch and pinprick is intact, motor exam 5/5 throughout. Psych: Patient is alert and oriented x3, she does not appear anxious or depressed, she does not appear agitated. She was discharged home in stable condition on 09/21/2023, she was instructed to follow-up next week for a CBC Weight / BMI Weight Weight: 58.8 kg Body Mass Index (BMI) 26.2 ABG / Lab / Microbiology Data 09/20/23 03:05 09/21/23 10:00 Microbiology: Microbiology 09/19/23 23:11 Mucosa - Nasopharyngeal Respiratory Panel (PCR) - Final 09/19/23 20:50 Mucosa - Nose SARS-CoV-2, Influenza & RSV (PCR) - Final D/C Instructions Discharge Diet: No restrictions Weight Bearing Status: Full weight bearing Meaningful Use Info Meaningful Use Diagnoses (Choose all that apply): CHF CHF ELENA/ARB ordered at discharge?: No Reason ELENA/ARB not ordered?: Worsening renal disease Documented LVEF (%): 40 Discharge Plan Admission Admit Date/Time: 09/19/23 19:30 Primary Reason for Your Visit: CHF Attending Provider: Hay Ray Primary Care Provider: Jodi Felix Consulting Providers: Gustavo Ricci; Rose Melendez Discharge Orders/Prescriptions Prescriptions: New furosemide [Lasix] 40 mg tablet 40 mg PO BID Qty: 60 0RF Continued carvedilol 6.25 mg tablet 6.25 mg PO BID Qty: 180 3RF isosorbide mononitrate 30 mg tablet extended release 24 hr 30 mg PO DAILY Qty: 90 3RF aspirin 81 mg Tablet,Chewable 81 mg PO BREAKFAST Qty: 30 2RF cholecalciferol (vitamin D3) 25 mcg (1,000 unit) tablet 25 mcg PO DAILY allopurinol 100 mg tablet 100 mg PO DAILY ceramides 1,3,6-II [CeraVe] Cream 1 applic topical DAILY PRN (Reason: DRY SKIN ) acetaminophen [Non-Aspirin] 325 mg tablet 325 mg PO Q6H PRN (Reason: PAIN ) amlodipine 5 mg tablet 5 mg PO DAILY Qty: 90 3RF Discontinued furosemide 40 mg tablet 20 mg PO DAILY Qty: 30 2RF Referrals / Follow Up: Gustavo Ricci MD [Med Staff - Consulting] - See Referral Note (As directed) Jodi Felix NP-C [Primary Care Provider] - See Referral Note (At next scheduled appointment, you will need your CBC rechecked next week- Monday) Disposition Disposition (needs filled in before D/C Order can be placed): Home, Self Care Charges/Coding Visit Charges Inpatient E&M: 76722 Disch Hosp >30min
[2023-09-21] MEDS: Cholecalciferol (VIT D3) 25 MCG TABLET (1,000 UNITS) PO (10:13)
[2023-09-21] MEDS: Allopurinol 100 MG Tablet PO (10:13)
--- NOTE | 2023-09-21 10:18 | RAD_ITS ---
STUDY: X-RAY CHEST REASON FOR EXAM: Female, 83 years old. CHF TECHNIQUE: Single AP portable view of the chest. COMPARISON: Comparison is made with prior examination dated September 19, 2023. FINDINGS: EKG electrodes are seen. The previously seen CHF has resolved. There is no demonstrated pleural abnormality. Mild cardiomegaly. Normal mediastinum and zac. Normal visualized pulmonary arteries. There is atherosclerotic calcification of the aortic arch with tortuosity. Normal visualized thoracic spine. Normal visualized ribs, clavicles, and shoulders. There is no demonstrated abnormality of the visualized soft tissue structures of the upper abdomen. RAD/Chest 1 View (Portable) IMPRESSION: No evidence of CHF at this time. Electronically Signed: Demarcus Jackson MD at 12:57 EST ,
[2023-09-21 11:12] LABS: Anion Gap 10 (5-15); BUN 76 mg/dL (7-18); BUN/Creat Ratio 16.3 RATIO (10-20); Chloride 107 mmol/L (98-107); Creatinine, Serum 4.66 mg/dL (0.55-1.02); EST Glomerular Filtration Rate 10 mL/min (>60); Est Glom Filt Rate - Afr Amer 12 mL/min (>60); Estimated Creatinine Clearance 7.21 ml/min; Glucose 123 mg/dL (74-106); Potassium 4.7 mmol/L (3.5-5.1); Sodium Level 137 mmol/L (136-145)
--- NOTE | 2023-09-21 11:56 | CASEMGMT ---
GARRETT CM to pt room at this time. Pt son at bedside. Pt DC is in. Pt states that she feels comfortable and safe being DC home today via her son. Pt states that she has many friends/ family/ neighbors that can help her out at home if needed. CM was following for O2 needs and it appears pt has been thriving on RA. Pt denies any SOB even with ambulation. Pt states that she does not want or need additional O2 at home at this time. Pt denies further needs. Black dot applied to whiteboard.
== END 2023-09-21 13:00 | disposition home or self-care (01) | DRG 291 ==
LOC: ED 19:48 → ICU 21:00
PROVIDERS: Nurse Practitioner; Nurse Practitioner Adult Health; Admitting Provider Internal Medicine; Emergency Provider Emergency Medicine; PCP Nurse Practitioner Family; Visit Provider Internal Medicine
DX: I13.0 Hypertensive heart and chronic kidney disease with heart failure and stage 1 through stage 4 chronic kidney disease, or unspecified chronic kidney disease (principal); I50.23 Acute on chronic systolic (congestive) heart failure; N18.4 Chronic kidney disease, stage 4 (severe); I25.10 Atherosclerotic heart disease of native coronary artery without angina pectoris; I25.2 Old myocardial infarction; I25.5 Ischemic cardiomyopathy; M10.9 Gout, unspecified; R19.7 Diarrhea, unspecified; R09.02 Hypoxemia; Z11.52 Encounter for screening for COVID-19; Z66 Do not resuscitate; Z79.82 Long term (current) use of aspirin; Z79.899 Other long term (current) drug therapy
CPT/HCPCS: 71045; 80048; 80053; 81001; 82728; 83540; 83550; 83605; 83735; 83880; 84100; 84145; 84484; 85025; 85379; 87631; 87633; 93005; 94668; 94760; 97161; 97165; 99252; 99284; A4216; G0463; J1940

== ENCOUNTER → 2023-10-02 | Outpatient (CLI) | payer MEDICARE, SELFPAY ==
--- OUTSIDE RECORDS SUMMARY | 2023-10-02 14:19 | XMS RPT_ITS | CCD ---
Author Name Unknown Address [address] [place] [address] Organization [facility] Care Team Providers Care Machine I Cutter Name Role Phone Unavailable Primary Care Provider Unavailabl e Allergies Allergy Classification Reported Allergen(s) Allergy Type Date of Onset Reaction(s) Facility (2 sources) amLODIPine Drug Allergy 3 Unknown [facility] (3 sources) Codeine; Translations: [CODEINE SULFATE] Drug Allergy 5 GI Upset [facility] (3 sources) fluvastatin; Translations: [FLUVASTATIN] Drug Allergy 8 Myalgia [facility] (3 sources) Povidone-Iodine; Translations: [POVIDONE-IODINE ] Drug Allergy 0 Rash [facility] (2 sources) predniSONE Drug Allergy 3 Intolerance [facility] (3 sources) Simvastatin; Translations: [SIMVASTATIN] Drug Allergy 8 Myalgia [facility] (3 sources) Adhesive Tape-Silicones; Translations: [ADHESIVE TAPE-SILICONES] Drug Intolerance 0 Rash [facility] Medications Current Medications Medication Drug Class(es) Dates [...] 97.9 [degF] Libby Kumar APRN.CNP Work Phone: [facility] 06-04-2023 14:31-0400 Body weight 58.6 kg Libby Kumar APRN.CNP Work Phone: [facility] 06-04-2023 14:31-0400 Diastolic blood pressure 72 mm[Hg] Libby Kumar ROTOPRINTER.EMERGENCY RESPONSE TECHNICIAN Work Phone: [facility] 06-04-2023 14:31-0400 Heart rate 49 /min Libby Kumar ROTOPRINTER.EMERGENCY RESPONSE TECHNICIAN Work Phone: [facility] 06-04-2023 14:31-0400 Respiratory rate 18 /min Libby Kumar ROTOPRINTER.EMERGENCY RESPONSE TECHNICIAN Work Phone: [facility] 06-04-2023 14:31-0400 SaO2% (BldA) [Mass fraction] 100 % Libby Kumar ROTOPRINTER.EMERGENCY RESPONSE TECHNICIAN Work Phone: [facility] 06-04-2023 14:31-0400 Systolic blood pressure 160 mm[Hg] Libby Kumar ROTOPRINTER.EMERGENCY RESPONSE TECHNICIAN Work Phone: [facility] Encounters Encounter Date Encounter Type Care Provider Facility Start: 06-06-2023 Telephone encounter Kulwant brooke ROTOPRINTER.EMERGENCY RESPONSE TECHNICIAN Work Phone: [facility] Procedures Date Procedure Procedure Detail Performing Clinician Start: 06-04-2023 Urnls dip stick/tabl et rgnt auto w/o microscopy Libby Kumra ROTOPRINTER.EMERGENCY RESPONSE TECHNICIAN Work Phone: Plan of Treatment Date Care Activity Detail Author Start: 04-21-2023 Covid-19 Vaccine ( season) Covid-19 Vaccine () [facility] Start: 04-21-2023 Influenza vaccination Influenza Vaccine (#1) [facility] c Start: 08-21-2022 Advance Directive Discussion Advance Directive Discussion [facility] Start: 08-21-2022 Depression Assessment Depression Assessment [facility] Start: 02-02-2015 Diabetes Screening Diabetes Screening [facility] Start: 08-21-2004 Pneumococcal Vaccine: 65+ (2 - PCV) Pneumococcal Vaccine: 65+ (2 - PCV) [facility] Start: 02-21-2004 Bone Density Screening Bone Density Screening [facility] Start: 1999 RSV Vaccine (1 - 1-dose 60+ series) RSV Vaccine (1 - 1-dose 60+ series) [facility] Start: 1989 Shingrix Vaccine (1 of 2) Shingrix Vaccine (1 of 2) [facility] Start: 1958 Urine microalbumin profile DTaP,Tdap,Td Vaccine (1 - Tdap) [facility] Bacteria identified in Urine by Culture URINE CULTURE Microbiology Routine Burning with urination 06/04/2023 3:17 PM EDT [facility] Work Phone: Immunizations Immunization Date Immunization Notes Care Provider Darin chavez 07-04-2011 influenza virus vacc ine, unspecified formulation Libby Kumar ROTOPRINTER.EMERGENCY RESPONSE TECHNICIAN Work Phone: [facility] 08-21-2003 pneumococcal polysaccharide vaccine, 23 valent Libby Kumar ROTOPRINTER.EMERGENCY RESPONSE TECHNICIAN Work Phone: [facility] Payers Date Payer Category Payer Medicare MMO MEDICARE MMO [employer]ANT[employer] HMO [id number] 2022-Present [phone] [address] [place] [address] [facility] [id number] 2022 Unknown [id number] Social History Date Type Detail Facility [facility] Start: 06-04-2023 Alcohol intake Current non-dr hoop puncher of alcohol (finding) [facility] Start: 06-04-2023 History of Social function [facility] Start: 06-04-2023 Tobacco use panel [facility] Start: 1940 Sex Assigned At Not on file C [facility] Clinic Note 06-06-2023 Telephone Encounter - Zoila [...] if symptoms are not improving. Kulwant Jaime APRN.EMERGENCY RESPONSE TECHNICIAN documented in this encounter [facility] Progress note 06-04-2023 Note Date & Type Note Facility 06-04-2023 Note HNO ID: [id number] Author: Libby Kumar APRN.EMERGENCY RESPONSE TECHNICIAN Service: ? Author Type: Nurse Practitioner Type: [...] CATARACT SURGERY, COMPLEX 2000, 2001 DELIVERY ONLY 1956,195, 1960 x3 PAST SURGICAL HISTORY OF 1998 [...] expected course of illness Libby Kumar APRN.[facility] History of Present illness Narrative 06-04-2023 [...] Discussed expected course of illness Libby Kumar APRN.EMERGENCY RESPONSE TECHNICIAN documented in this encounter [facility] Instructions 06-04-2023 Patient Instructions Note Date & [...] have an infection. documented in this encounter [facility] History of Past illness Narrative 07-06-2005 Note Date & Type Note Facility documented as of this encounter (statuses as of 06/04/2023) [facility] History of Past illness Narrative 07-06-2005 Note Date & Type Note Facility documented as of this encounter (statuses as of 06/06/2023) [facility] Evaluation note Note Date & Type Note Facility documented in this encounter [facility] Summary Purpose Family History No Family History [...] or prosecute any alcohol or drug abuse patient.[facility] the event this information is protected by the Federal Confidentiality of Alcohol and Drug Abuse Patient Records regulations: The Federal rules restrict any use of the information to criminally investigate or prosecute any alcohol or drug abuse patient.[facility] Reason for Visit (unrecogniz ed section and [...] BE BASED ON THE PRIMARY CLINICAL RECORDS. [employer] [facility]. provides no warranty or guarantee of the accuracy or completeness of information in this document.
[2023-10-02 15:37] LABS: Absolute Lymphocyte Count 3.94 X10^3/uL (0.83-4.51); Absolute Neutrophil Count 6.1 X10^3/uL (2.0-7.7); Basophil# 0.12 X10^3/uL; Eosinophil# 1.24 X10^3/uL; Hematocrit 34.6 % (37-47); Hemoglobin 10.5 g/dL (12.0-15.0); Lymphocyte # 3.94 X10^3/ul (0.83-4.51); Lymphocyte % 31.7 % (19-41); Mean Corp Hgb Conc 30.3 g/dL (32-36); Mean Corpuscular Hgb 28.2 pg (27.0-32.0); Mean Platelet Vol. 12.5 fl (6.2-12.0); Monocyte# 0.98 X10^3/uL; Monocyte% 7.9 % (0-10); NRBC Flagged by Analyzer 0 % (0-5); Neutrophil # 6.09 X10^3/uL (2.7-7.7); Platelet Count 435 K/mm3 (150-450); RBC Distribution Width CV 16.3 % (11.6-14.6); RBC Distribution Width SD 55.4 fl (35.1-43.9); Red Blood Count 3.72 M/mm3 (4.2-5.4); White Blood Count 12.4 K/mm3 (4.4-11.0)
[2023-10-02 17:08] LABS: ALB/GLOB Ratio 1.1 RATIO (0.9-2.4); AST(SGOT) 11 U/L (15-37); Alanine Aminotransfer ALT/SGPT 15 U/L (13-56); Albumin, Serum 3.9 g/dL (3.2-5.0); Alkaline Phosphatase 68 U/L (45-117); Anion Gap 11 (5-15); BUN 111 mg/dL (7-18); BUN/Creat Ratio 21.6 RATIO (10-20); Calcium,Total 10.7 mg/dL (8.5-10.1); Chloride 101 mmol/L (98-107); Creatinine, Serum 5.14 mg/dL (0.55-1.02); EST Glomerular Filtration Rate 9 mL/min (>60); Est Glom Filt Rate - Afr Amer 10 mL/min (>60); Globulin 3.6 g/dL (2.2-4.2); Glucose 123 mg/dL (74-106); Potassium 4.4 mmol/L (3.5-5.1); Protein, Total 7.5 g/dL (6.4-8.2); Sodium Level 136 mmol/L (136-145)
== END | disposition home or self-care (01) ==
LOC: BFHLAB 13:26
PROVIDERS: PCP Nurse Practitioner Family; Visit Provider Nurse Practitioner Family
DX: I12.9 Hypertensive chronic kidney disease with stage 1 through stage 4 chronic kidney disease, or unspecified chronic kidney disease (principal); N18.4 Chronic kidney disease, stage 4 (severe)
CPT/HCPCS: 36415; 80053; 85025

== ENCOUNTER → 2023-12-18 | Outpatient (CLI) | payer MEDICARE, SELFPAY ==
[2023-12-18 16:03] LABS: Vitamin D,25 Hydroxy 43.6 ng/mL
== END | disposition home or self-care (01) ==
LOC: BFHLAB 13:39
PROVIDERS: PCP Nurse Practitioner Family; Referring Provider Nurse Practitioner Family; Visit Provider Nurse Practitioner Family
DX: E55.9 Vitamin D deficiency, unspecified (principal)
CPT/HCPCS: 36415; 82306

== ENCOUNTER → 2024-01-18 | Outpatient (CLI) | payer MEDICARE, SELFPAY ==
[2024-01-18 10:38] LABS: Bacteria 0 SEEN /hpf (None Seen); Mucous, Urine 0 SEEN /hpf (<or=2+); Red Blood Cells-Urine 0 SEEN /hpf (0-5); Squamous Epithelial Cells - UA 0 SEEN /hpf (5-10); White Blood Cells 0 SEEN /hpf (0-5)
[2024-01-18 12:58] LABS: Color, Urine Yellow (Yellow); Glucose, Dipstick Normal (Normal); Ketone-Dipstick Negative (Negative); Leukocyte Esterase-Dipstick 100 /ul (Negative); Nitrite-Dipstick Negative (Negative); Occult Blood-Urine Negative /ul (Negative); Protein-Dipstick 100 mg/dl (Negative); Urine Bilirubin Dipstick Negative (Negative); Urine Clarity Clear (Clear); Urine Urobilinogen Normal (Normal)
[2024-01-18 13:03] LABS: Hematocrit 33.6 % (37-47); Hemoglobin 10.5 g/dL (12.0-15.0); Mean Corp Hgb Conc 31.3 g/dL (32-36); Mean Corpuscular Hgb 29.5 pg (27.0-32.0); Mean Corpuscular Volume 94.4 fL (81-99); Mean Platelet Vol. 11.9 fl (6.2-12.0); Platelet Count 353 K/mm3 (150-450); RBC Distribution Width CV 15.2 % (11.6-14.6); RBC Distribution Width SD 52.8 fl (35.1-43.9); Red Blood Count 3.56 M/mm3 (4.2-5.4); White Blood Count 11.5 K/mm3 (4.4-11.0)
[2024-01-18 16:06] LABS: Albumin, Serum 3.5 g/dL (3.2-5.0); BUN 88 mg/dL (7-18); BUN/Creat Ratio 16.5 RATIO (10-20); Calcium,Total 10.4 mg/dL (8.5-10.1); Chloride 100 mmol/L (98-107); Creatinine, Serum 5.32 mg/dL (0.55-1.02); EST Glomerular Filtration Rate 8 mL/min (>60); Est Glom Filt Rate - Afr Amer 10 mL/min (>60); Glucose 84 mg/dL (74-106); Phosphorus 6.5 mg/dL (2.5-4.9); Potassium 4.6 mmol/L (3.5-5.1); Sodium Level 134 mmol/L (136-145)
== END | disposition home or self-care (01) ==
LOC: BFHLAB 10:33
PROVIDERS: PCP Nurse Practitioner Family; Referring Provider Nurse Practitioner Family; Visit Provider Nurse Practitioner Family
DX: N18.4 Chronic kidney disease, stage 4 (severe) (principal)
CPT/HCPCS: 36415; 80069; 81001; 85027

== ENCOUNTER → 2024-04-25 | Outpatient (CLI) | payer MEDICARE, SELFPAY ==
[2024-04-25 15:34] LABS: Absolute Neutrophil Count 6.8 X10^3/uL (2.0-7.7); Basophil# 0.09 X10^3/uL; Basophil% 0.7 % (0-1); Eosinophil# 0.73 X10^3/uL; Eosinophils% 5.7 % (0-5); Hematocrit 35.2 % (37-47); Hemoglobin 11.1 g/dL (12.0-15.0); Lymphocyte % 32.7 % (19-41); Mean Corp Hgb Conc 31.5 g/dL (32-36); Mean Corpuscular Hgb 29.1 pg (27.0-32.0); Mean Corpuscular Volume 92.4 fL (81-99); Mean Platelet Vol. 10.8 fl (6.2-12.0); Monocyte# 0.96 X10^3/uL; Monocyte% 7.5 % (0-10); NRBC Flagged by Analyzer 0 % (0-5); Neutrophil # 6.79 X10^3/uL (2.7-7.7); Neutrophil % 52.9 % (47-70); Platelet Count 404 K/mm3 (150-450); RBC Distribution Width CV 14.9 % (11.6-14.6); RBC Distribution Width SD 50.5 fl (35.1-43.9); Red Blood Count 3.81 M/mm3 (4.2-5.4); White Blood Count 12.8 K/mm3 (4.4-11.0)
[2024-04-25 15:51] LABS: Protein, Urine (Random) 93.8 mg/dL (<11.9); Protein:Creat Ratio 1934 mg/g CRE (0-200)
[2024-04-25 16:13] LABS: Albumin, Serum 3.6 g/dL (3.2-5.0); BUN 67 mg/dL (7-18); BUN/Creat Ratio 13.7 RATIO (10-20); Chloride 98 mmol/L (98-107); Creatinine, Serum 4.89 mg/dL (0.55-1.02); EST Glomerular Filtration Rate 9 mL/min (>60); Est Glom Filt Rate - Afr Amer 11 mL/min (>60); Glucose 108 mg/dL (74-106); Potassium 3.9 mmol/L (3.5-5.1); Sodium Level 133 mmol/L (136-145)
== END | disposition home or self-care (01) ==
LOC: BFHLAB 13:47
PROVIDERS: PCP Nurse Practitioner Family; Referring Provider Internal Medicine Nephrology; Visit Provider Internal Medicine Nephrology
DX: N18.4 Chronic kidney disease, stage 4 (severe) (principal)
CPT/HCPCS: 36415; 80069; 82570; 84156; 85025

== ENCOUNTER → 2024-10-15 | Outpatient (CLI) | payer MEDICARE, SELFPAY ==
[2024-10-15 15:24] LABS: Hematocrit 39.1 % (37-47); Mean Corp Hgb Conc 30.7 g/dL (32-36); Mean Corpuscular Hgb 28.4 pg (27.0-32.0); Mean Corpuscular Volume 92.7 fL (81-99); Mean Platelet Vol. 11.4 fl (6.2-12.0); Platelet Count 470 K/mm3 (150-450); RBC Distribution Width CV 14.5 % (11.6-14.6); RBC Distribution Width SD 49.1 fl (35.1-43.9); Red Blood Count 4.22 M/mm3 (4.2-5.4)
[2024-10-15 23:34] LABS: Protein, Urine (Random) 58 mg/dL (<=12); Protein:Creat Ratio 1143 mg/g CRE (0-200)
[2024-10-16 06:07] LABS: Albumin, Serum 4.1 g/dL (3.4-4.8); BUN 59 mg/dL (4-19); BUN/Creat Ratio 12.8 RATIO (10-20); Creatinine, Serum 4.6 mg/dL (0.6-1.0); EST Glomerular Filtration Rate 9 (>60); Glucose 93 mg/dL (70-99); Phosphorus 5.3 mg/dL (2.7-4.5); Vitamin D,25 Hydroxy 37.6 ng/mL (30-100)
[2024-10-17 05:20] LABS: Calcium,Total 10.7 mg/dL (7.6-11.0); Carbon Dioxide 20.3 mmol/L (21.0-32.0); Chloride 98 mmol/L (98-107); Potassium 4.1 mmol/L (3.5-5.1); Sodium Level 138 mmol/L (136-145)
== END | disposition home or self-care (01) ==
LOC: BFHLAB 11:38
PROVIDERS: PCP Nurse Practitioner Family; Visit Provider Internal Medicine Nephrology
DX: N18.4 Chronic kidney disease, stage 4 (severe) (principal)
CPT/HCPCS: 36415; 80069; 82306; 82570; 84156; 85027

== ENCOUNTER → 2025-01-07 | Outpatient (CLI) | payer MEDICARE, SELFPAY | END | disposition home or self-care (01) | LOC: LABSPEC 16:45 | PROVIDERS: PCP Nurse Practitioner Family; Visit Provider Nurse Practitioner Family | DX: N39.0 Urinary tract infection, site not specified (principal); R30.9 Painful micturition, unspecified | CPT/HCPCS: 87077; 87086; 87088; 87186 ==

== ENCOUNTER → 2025-04-15 | Outpatient (CLI) | payer MEDICARE, SELFPAY ==
[2025-04-15 17:54] LABS: Hematocrit 36.9 % (37-47); Hemoglobin 11.6 g/dL (12.0-15.0); Immature Granulocytes Count 0.040 X10^3/uL (0.0-0.0); Mean Corp Hgb Conc 31.4 g/dL (32-36); Mean Corpuscular Volume 92.0 fL (81-99); Mean Platelet Vol. 11.1 fl (6.2-12.0); NRBC Flagged by Analyzer 0 % (0-5); Platelet Count 439 K/mm3 (150-450); RBC Distribution Width CV 15.5 % (11.6-14.6); RBC Distribution Width SD 52.4 fl (35.1-43.9); Red Blood Count 4.01 M/mm3 (4.2-5.4); White Blood Count 12.4 K/mm3 (4.4-11.0)
[2025-04-15 18:30] LABS: Albumin, Serum 4.2 g/dL (3.4-4.8); Anion Gap 14 (5-15); BUN 43 mg/dL (4-19); BUN/Creat Ratio 9.5 RATIO (10-20); Calcium,Total 10.7 mg/dL (7.6-11.0); Carbon Dioxide 24.1 mmol/L (21.0-32.0); Chloride 99 mmol/L (98-108); Glucose 112 mg/dL (70-99); Potassium 4.3 mmol/L (3.3-5.1); Vitamin D,25 Hydroxy 36.2 ng/mL (30-100)
[2025-04-15 19:24] LABS: Creatinine, Urine (random) 41.40 mg/dL (28.00-217.00); Protein, Urine (Random) 41.4 mg/dL (0.0-12.0); Protein:Creat Ratio 1000 mg/g CRE (0-200)
== END | disposition home or self-care (01) ==
LOC: BFHLAB 15:16
PROVIDERS: PCP Nurse Practitioner Family; Visit Provider Internal Medicine Nephrology
DX: N18.4 Chronic kidney disease, stage 4 (severe) (principal)
CPT/HCPCS: 36415; 80069; 82306; 82570; 84156; 85025